=== PATIENT | male | born 1985 | race Caucasian/White ===

== ENCOUNTER 2016-12-16 17:15 | Emergency (ER) ==
[2016-12-16 17:20] VITALS: BP 137/84; TEMP 98.3; BMI 23.6
--- NOTE | 2016-12-16 17:28 | ED.PDOC ---
General ED Provider: Dr. MEGGAN MANE JR Chief Complaint: Hand Pain/Injury Stated Complaint: right hand injury. Punched wall. [ End ]last night Time Seen by Physician: 17:26 Mode of Arrival: Walk-In Information Source: Patient Exam Limitations: No limitations [facility] and Triage Documentation Reviewed and Agree: No Review of Systems - Review Of Systems Constitutional: Reports: No symptoms Eyes: Reports: No symptoms Ears, Nose, Mouth, Throat: Reports: No symptoms Respiratory: Reports: No symptoms Cardiac: Reports: No symptoms, Edema (hand) GI: Reports: No symptoms : Reports: No symptoms Musculoskeletal: Reports: Joint pain (righthand), Other Skin: Reports: Bruising Neurological: Reports: No symptoms Endocrine: Reports: No symptoms Hematologic/Lymphatic: Reports: No symptoms All Other Systems: Other Past Medical History - Past Medical History Previously Healthy: Yes Endocrine: Reports: None Cardiovascular: Reports: None Respiratory: Reports: None Hematological: Reports: None Gastrointestinal: Reports: None Genitourinary: Reports: None Neuro/Psych: Reports: None Musculoskeletal: Reports: None Cancer: Reports: None - Surgical History General Surgical History: Reports: Orthopedic (fx right hand x2), Hernia Repair (INGUINAL HERNIA REPAIR A CHILD ) - Family History Family History: Reports: Unknown - Social History Smoking Status: Current every day smoker, Heavy tobacco smoker Hx Substance Use: No Alcohol Screening: Occasionally - Immunizations Tetanus Shot up to Date: Yes Physical Exam - Physical Exam Appearance: Well-appearing Pain Distress: Moderate Neck: Supple Respiratory: Airway patent Musculoskeletal: No calf tenderness (tender right wrist and pproximal lateral hand) Neurological: Sensation intact, Motor intact, Reflexes intact, Cranial nerves intact, Alert, Oriented Psychiatric: Affect appropriate, Mood appropriate Critical Care Note - Critical Care Note Total Time (mins): 0 Course - Course Orders, Labs, Meds: Orders Category Date Time Status Hydrocodone Bit/Acetaminophen [[place] 10-325] MEDS 12/16/16 17:29 Discontinued 1 tab PO ONCE STA HAND, RIGHT 3 VIEWS Stat RADS 12/16/16 17:26 Completed Medications Discontinued Medications Generic Name Dose Route Start Last Admin Trade Name Freq PRN Reason Stop Dose Admin Acetaminophen/Hydrocodone Bitart 1 tab 12/16/16 17:29 12/16/16 17:36 [place] 10-325 PO 12/16/16 17:30 1 tab ONCE STA Administration Vital Signs: Temp Pulse Resp BP Pulse Ox 12/16/16 17:17 98.3 F 91 H 20 137/84 95 Departure - Departure Time of Disposition: 18:16 Disposition: HOME SELF-CARE Discharge Problem: Fracture, metacarpal Instructions: Hand Fracture (ED) Condition: Good Pt referred to PMD for follow-up: Yes Additional Instructions: ice 20 minutes three times a day follow up PMD for orthopedic referral [place] for pain no refills Prescriptions: Hydrocodone Bit/Acetaminophen [[place] 5-325] 1 - 2 tab PO Q6HR PRN #12 tablet PRN Reason: pain Allergies/Adverse Reactions: Allergies Penicillins Adverse Reaction (Verified 12/16/16 17:21) Home Medications: Ambulatory Orders Hydrocodone Bit/Acetaminophen [[place] 5-325] 1 - 2 tab PO Q6HR PRN #12 tablet
[2016-12-16] MEDS ORDERED: NORCO 10-325 PO STA (17:29)
--- NOTE | 2016-12-16 17:48 | DI ---
EXAM: Views of the right hand HISTORY: Trauma TECHNIQUE: AP lateral, oblique views of the right hand were obtained. FINDINGS: There is a transverse lucency seen through the base of the the fifth metacarpal seen best on the lateral view. The findings are not well seen on the AP and oblique radiographs. There is d eformity of the distal fifth metacarpal and this can be due to old fracture. IMPRESSION: There does appear to be a transverse lucency seen through the base of the fifth metacar pal and this equivocal for a minimally displaced fracture. The findings are seen only on the latera l radiograph. CT scan of the right hand can be obtained for further evaluation if clinically indicat ed.
== END 2016-12-16 18:55 | disposition home or self-care (01) ==
LOC: ED 17:15
DX: S62.316A Displaced fracture of base of fifth metacarpal bone, right hand, initial encounter for closed fracture (principal); W22.8XXA Striking against or struck by other objects, initial encounter; F17.210 Nicotine dependence, cigarettes, uncomplicated
CPT/HCPCS: 99282

== ENCOUNTER 2017-04-07 03:25 | Outpatient (CLI) | END 2017-04-07 03:26 | disposition short-term general hospital (02) | LOC: AMBL 03:25 | PROVIDERS: ATTEND Internal Medicine Geriatric Medicine | DX: R44.0 Auditory hallucinations (principal) ==

== ENCOUNTER 2017-11-21 12:31 | Emergency (ER) ==
[2017-11-21 12:36] VITALS: BP 162/78; TEMP 98.5; BMI 26.9
--- NOTE | 2017-11-21 15:16 | ED.PDOC ---
General ED Provider: Dr. JORGE BAILEY Chief Complaint: Abscess Stated Complaint: PAINFUL RT HAND. Has swelling in mid finger and extending into metatarsal region. May have been stuck by shrimp was cleaning last Sat night. Time Seen by Physician: 15:00 Mode of Arrival: Walk-In Information Source: Patient Exam Limitations: No limitations Primary Care [facility] Nursing and Triage Documentation Reviewed and Agree: Yes Reviewed sepsis parameters & appropriate labs ordered?: Yes System Inflammatory Response Syndrome: Not Applicable Sepsis Protocol: For patient's 13 years and over: Temp is 96.8 and below OR 101 and greater Pulse >90 BPM Resp >20/minute Acutely Altered Mental Status Are patient's symptoms suggestive of a new infection, such as: -Pneumonia -Skin, Soft Tissue -Endocarditis -UTI -Bone, Joint Infection -Implantable Device -Acute Abdominal Infection -Wound Infection -Meningitis -Blood Stream Catheter Infection -Unknown System Inflammatory Response Syndrome: Not Applicable Skin Complaint Exam - Skin/Soft Tissue Complaint/Exam Symptoms Are: Still present Timing: Constant Initial Severity: Severe Current Severity: Moderate Character: Reports: Redness, Swelling, Painful Aggravating: Reports: Touch Associated Signs and Symptoms: Reports: Drainage, Tenderness, Red streaks Related History: Denies: Similar episode, Recent Med change, Recent inpatient Related Surgical History: Denies: None Skin Findings: Present: Erythema, Induration, Fluctuant mass Differential Diagnoses: Abscess, Cellulitis Review of Systems - Review Of Systems Constitutional: Reports: No symptoms Eyes: Reports: No symptoms Ears, Nose, Mouth, Throat: Reports: No symptoms Respiratory: Reports: No symptoms Cardiac: Reports: No symptoms GI: Reports: No symptoms : Reports: No symptoms Musculoskeletal: Reports: No symptoms Skin: Reports: No symptoms, Rash, Other (erythrema rt middle finger) Neurological: Reports: No symptoms Endocrine: Reports: No symptoms Hematologic/Lymphatic: Reports: No symptoms All Other Systems: Reviewed and Negative Past Medical History - Past Medical History Previously Healthy: Yes Endocrine: Reports: None Cardiovascular: Reports: None Respiratory: Reports: None Hematological: Reports: None Gastrointestinal: Reports: None Genitourinary: Reports: None Neuro/Psych: Reports: None Musculoskeletal: Reports: None Cancer: Reports: None - Surgical History General Surgical History: Reports: Orthopedic (fx right hand x2), Hernia Repair (INGUINAL HERNIA REPAIR A CHILD ) - Family History Family History: Reports: Unknown - Social History Smoking Status: Current every day smoker, Heavy tobacco smoker Hx Substance Use: No Alcohol Screening: Occasionally - Immunizations Tetanus Shot up to Date: Yes Physical Exam - Physical Exam Appearance: Well-appearing Ill-appearing: None Pain Distress: Moderate Eyes: GUCCI, EOMI, Conjunctiva clear ENT: Ears normal, Nose normal, Oropharynx normal Neck: Supple Respiratory: Airway patent, Breath sounds clear, Breath sounds equal Cardiovascular: RRR, Pulses normal, No rub, No murmur GI/: Soft, Nontender Musculoskeletal: Normal strength, ROM intact, No edema Skin: Warm (erythrema dorsum Rt hand extending wrist, Rt Middle phalynx) Neurological: Sensation intact Re-Evaluation - Re-Evaluation Time of Re-Evaluation: 17:10 Status: Improved Vital Signs Stable: Yes Appearance: NAD Lungs: Clear Skin: Warm and Dry Neuro: Alert and Oriented X3 CV: RRR Additional Comments: Improved Critical Care Note - Critical Care Note Total Time (mins): 0 Course - Course Orders, Labs, Meds: Orders Category Date Time Status IV ACCESS ONCE CARE 11/21/17 16:02 Active Clindamycin Phosphate Inj [Cleocin] MEDS 11/21/17 16:25 Discontinued 300 mg .ROUTE .STK-MED ONE Clindamycin Phosphate Inj [Cleocin] 300 mg MEDS 11/21/17 16:07 Discontinued 0.9 % Sodium Chloride [Sodium Chloride] 100 ml IV ONCE Hydromorphone HCl [Dilaudid 1 mg/ml Syringe] MEDS 11/21/17 16:17 Discontinued 1 mg IVP ONCE STA Medications Discontinued Medications Generic Name Dose Route Start Last Admin Trade Name Freq PRN Reason Stop Dose Admin Hydromorphone HCl 1 mg 11/21/17 16:17 11/21/17 16:35 Dilaudid 1 Mg/Ml Syringe IVP 11/21/17 16:18 1 mg ONCE STA Administration Clindamycin Phosphate 300 mg/ 102 mls @ 208 mls/hr 11/21/17 16:07 11/21/17 16 :38 Sodium Chloride IV 11/21/17 16:36 208 mls/hr ONCE ONE Administration Vital Signs: Temp Pulse Resp BP Pulse Ox 11/21/17 12:32 98.5 F 76 16 162/78 H 97 Departure - Departure Time of Disposition: 17:40 Disposition: HOME SELF-CARE Discharge Problem: Abscess of right middle finger, Cellulitis and abscess of hand Instructions: Cellulitis (ED), Abscess (ED) Condition: Good Pt referred to PMD for follow-up: Yes (1week) IPMP verified?: No Additional Instructions: Follow up with your primary care provider as soon as possible Take medication as prescribed Keep area clean and dry Prescriptions: Hydrocodone Bit/Acetaminophen [[place] 5-325] 1 each PO Q4HR PRN #15 tablet PRN Reason: pain rt hand Chlorhexidine Gluconate [Hibiclens 4% [place]] 1 applic TP TID #8 oz Clindamycin HCl 300 mg PO QID #30 capsule Allergies/Adverse Reactions: Allergies Penicillins Adverse Reaction (Verified 11/21/17 12:37) Home Medications: Ambulatory Orders Chlorhexidine Gluconate [Hibiclens 4% [place]] 1 applic TP TID #8 oz 11/21/17 Clindamycin HCl 300 mg PO QID #30 capsule 11/21/17 Hydrocodone Bit/Acetaminophen [[place] 5-325] 1 each PO Q4HR PRN #15 tablet Disposition Discussed With: Patient, Family
[2017-11-21] MEDS ORDERED: CLEOCIN 300 MG in SODIUM CHLORIDE 100 ML IV ONE (16:07)
[2017-11-21] MEDS ORDERED: DILAUDID 1 MG/ML SYRINGE IVP STA (16:17)
[2017-11-21] MEDS ORDERED: CLEOCIN ONE (16:25)
== END 2017-11-21 18:10 | disposition home or self-care (01) ==
LOC: ED 12:31
DX: L02.511 Cutaneous abscess of right hand (principal); L03.113 Cellulitis of right upper limb; F17.210 Nicotine dependence, cigarettes, uncomplicated
CPT/HCPCS: 87070; 87186; 96365; 96375; 99283

== ENCOUNTER 2018-01-07 20:39 | Emergency (ER) ==
[2018-01-07 20:59] VITALS: BP 130/77; TEMP 101; BMI 24.7
[2018-01-07] MEDS ORDERED: VANCOMYCIN 1 GM in SODIUM CHLORIDE 250 ML IV STA (21:26)
[2018-01-07] MEDS ORDERED: ROCEPHIN 1 GM in SODIUM CHLORIDE 50 ML IV STA (21:26)
[2018-01-07] MEDS ORDERED: ROCEPHIN ONE (21:31)
--- NOTE | 2018-01-07 21:51 | CT ---
EXAM: CT of the maxillofacial region without contrast History: Abscess on chin. Technique: Multiplanar CT images through the maxillofacial region were obtained without the administ ration of IV contrast Findings: No acute fracture or dislocation. Mild mucosal thickening of the bilateral maxillary sinu ses and ethmoid air cells. No air-fluid levels seen within the sinuses. Mastoid air cells are clear . Nasal septum is bowed to the left. Bilateral ostiomeatal units are not occluded. Mildly enlarged lymph nodes seen within the bilateral neck measuring up to 1.3 cm on the left and 1.1 cm on the righ t and are probably reactive. Extensive subcutaneous edema involving the chin which does extend below the mandible to the anterior aspect of the neck. Evaluation for abscess is limited due to lack of co ntrast administration. Impression: 1. Cellulitis of the chin extending to the anterior neck. Evaluation for abscess is limited due to the lack of contrast administration. Consider follow-up with IV contrast enhanced study. 2. Mildly enlarged bilateral neck lymph nodes are probably reactive. 3. Mild sinus disease
[2018-01-07] MEDS ORDERED: DEMEROL 25 MG/ML VIAL IM STA (21:56)
[2018-01-07] MEDS ORDERED: ZOFRAN 4 MG/2 ML IM STA (21:56)
[2018-01-07] MEDS ORDERED: ZOFRAN 4 MG/2 ML IVP STA (22:05)
[2018-01-07] MEDS ORDERED: DEMEROL 25 MG/ML VIAL IVP STA (22:06)
--- NOTE | 2018-01-07 23:04 | ED.PDOC ---
General ED Provider: Dr. MARCOS CHAU Chief Complaint: Cellulitis Stated Complaint: Patient had Pimple on the chin, which he popped 2 days ago, the area is swollen and pain, started draining pus, Time Seen by Physician: 20:45 Mode of Arrival: Walk-In Information Source: Patient Primary Care Provider: MARCOS [facility] Nursing and Triage Documentation Reviewed and Agree: Yes Reviewed sepsis parameters & appropriate labs ordered?: Yes System Inflammatory Response Syndrome: Temp 101F or Greater, Pulse >90 BPM Sepsis Protocol: For patient's 13 years and over: Temp is 96.8 and below OR 101 and greater Pulse >90 BPM Resp >20/minute Acutely Altered Mental Status Are patient's symptoms suggestive of a new infection, such as: -Pneumonia -Skin, Soft Tissue -Endocarditis -UTI -Bone, Joint Infection -Implantable Device -Acute Abdominal Infection -Wound Infection -Meningitis -Blood Stream Catheter Infection -Unknown Skin Complaint Exam - Skin/Soft Tissue Complaint/Exam Symptoms Are: Still present Timing: Constant Initial Severity: Moderate Current Severity: Moderate Character: Reports: Redness, Swelling, Raised, Painful Aggravating: Reports: Touch Alleviating: Reports: None Associated Signs and Symptoms: Reports: Fever, Drainage, Tenderness, Red streaks. Denies: Chills, Itching, Bruising, Joint swelling Related Surgical History: Reports: None Recent Exposure to Others w/Similar Symptoms: No Skin Findings: Present: Erythema, Induration. Absent: Fluctuant mass Differential Diagnoses: Cellulitis Review of Systems - Review Of Systems Constitutional: Reports: No symptoms Eyes: Reports: No symptoms Ears, Nose, Mouth, Throat: Reports: No symptoms Respiratory: Reports: No symptoms Cardiac: Reports: No symptoms GI: Reports: No symptoms : Reports: No symptoms Musculoskeletal: Reports: No symptoms Skin: Reports: No symptoms Neurological: Reports: No symptoms Endocrine: Reports: No symptoms Hematologic/Lymphatic: Reports: No symptoms All Other Systems: Reviewed and Negative Past Medical History - Past Medical History Previously Healthy: Yes Endocrine: Reports: None Cardiovascular: Reports: None Respiratory: Reports: None Hematological: Reports: None Gastrointestinal: Reports: None Genitourinary: Reports: None Neuro/Psych: Reports: Anxiety, Depression Musculoskeletal: Reports: None Cancer: Reports: None - Surgical History General Surgical History: Reports: Orthopedic (fx right hand x2), Hernia Repair (INGUINAL HERNIA REPAIR A CHILD ) - Family History Family History: Reports: Unknown - Social History Smoking Status: Current every day smoker, Heavy tobacco smoker Hx Substance Use: Yes (ALCOHOL) Alcohol Screening: Occasionally - Immunizations Tetanus Shot up to Date: Yes Physical Exam - Physical Exam Appearance: Well-appearing, No pain distress, Well-nourished Eyes: GUCCI, EOMI, Conjunctiva clear ENT: Ears normal, Nose normal, Oropharynx normal Respiratory: Airway patent, Breath sounds clear, Breath sounds equal, Respirations nonlabored Cardiovascular: RRR, Pulses normal, No rub, No murmur GI/: Soft, Nontender, No masses, Bowel sounds normal, No Organomegaly Musculoskeletal: Normal strength, ROM intact, No edema, No calf tenderness Skin: Warm, Dry (chin is swollen, tender, open wound, ), Normal color Neurological: Sensation intact, Motor intact, Reflexes intact, Cranial nerves intact, Alert, Oriented Psychiatric: Affect appropriate, Mood appropriate Interpretation - Radiology Interpretation Radiology Interpretation By: Radiologist Radiology Results: Positive Exam Interpreted: CT Scan Critical Care Note - Critical Care Note Total Time (mins): 30 Course - Course Hematology/Chemistry: 01/07/18 21:45 01/07/18 21:45 Orders, Labs, Meds: Lab Review 01/07/18 01/07/18 01/07/18 21:45 21:45 21:45 WBC 15.57 H RBC 5.14 Hgb 16.1 Hct 47.6 MCV 92.6 MCH 31.3 H MCHC 33.8 RDW Coeff of Juanito 13.4 Plt Count 266 Immature Gran % (Auto) 0.6 Neut % (Auto) 70.1 Lymph % (Auto) 15.9 [place] % (Auto) 11.0 H Eos % (Auto) 1.8 Baso % (Auto) 0.6 Immature Gran # (Auto) 0.1 Neut # (Auto) 10.9 H Lymph # (Auto) 2.5 [place] # (Auto) 1.7 Eos # (Auto) 0.3 Baso # (Auto) 0.1 Sodium 138 Potassium 3.7 Chloride 101 Carbon Dioxide 24 Anion Gap 16.7 BUN 3 L Creatinine 0.92 Estimated GFR (MDRD) 96.00 BUN/Creatinine Ratio 3.26 Glucose 108 H Lactic Acid 10.0 Calcium 9.9 Total Bilirubin 0.8 AST 86 H ALT 128 H Alkaline Phosphatase 178 H Total Protein 8.3 H Albumin 3.8 Globulin 4.5 Albumin/Globulin Ratio 0.84 Procalcitonin Vancomycin Trough < 0.42 L 01/07/18 21:45 WBC RBC Hgb Hct MCV MCH MCHC RDW Coeff of Juanito Plt Count Immature Gran % (Auto) Neut % (Auto) Lymph % (Auto) [place] % (Auto) Eos % (Auto) Baso % (Auto) Immature Gran # (Auto) Neut # (Auto) Lymph # (Auto) [place] # (Auto) Eos # (Auto) Baso # (Auto) Sodium Potassium Chloride Carbon Dioxide Anion Gap BUN Creatinine Estimated GFR (MDRD) BUN/Creatinine Ratio Glucose Lactic Acid Calcium Total Bilirubin AST ALT Alkaline Phosphatase Total Protein Albumin Globulin Albumin/Globulin Ratio Procalcitonin 0.10 Vancomycin Trough Orders Category Date Time Status ED IV/MEDIPORT/POWERPORT .ONCE EMERGENCY 01/07/18 21:26 Active BLOOD CULTURE (ED ONLY) Stat LAB 01/07/18 21:45 Received CBC W/ AUTO DIFF Stat LAB 01/07/18 21:45 Completed COMPREHENSIVE METABOLIC PANEL Stat LAB 01/07/18 21:45 Completed LACTIC ACID Stat LAB 01/07/18 21:45 Completed PROCALCITONIN Stat LAB 01/07/18 21:45 Completed VANCOMYCIN,TROUGH Stat LAB 01/07/18 21:45 Completed WOUND CULTURE Stat LAB 01/07/18 22:30 Received 0.9 % Sodium Chloride [Saline Flush] MEDS 01/07/18 21:26 Ordered 1 syr IVF PRN PRN Ceftriaxone Sodium [Rocephin] MEDS 01/07/18 21:31 Discontinued 1 gm .ROUTE .STK-MED ONE Ceftriaxone Sodium [Rocephin] 1 gm MEDS 01/07/18 21:26 Discontinued 0.9 % Sodium Chloride [Sodium Chloride] 50 ml IV ONCE Meperidine HCl/Pf [Demerol 25 mg/ml Vial] MEDS 01/07/18 22:06 Discontinued 25 mg IVP ONCE STA Ondansetron HCl/Pf [Zofran 4 mg/2 ml] MEDS 01/07/18 22:05 Discontinued 4 mg IVP ONCE STA Vancomycin HCl [Vancomycin] 1 gm MEDS 01/07/18 21:26 Discontinued 0.9 % Sodium Chloride [Sodium Chloride] [address] MAXILLOFACIAL W/O CONTRAST Stat RADS 01/07/18 21:26 Completed Medications Generic Name Dose Route Start Last Admin Trade Name Freq PRN Reason Stop Dose Admin Sodium Chloride 1 syr 01/07/18 21:26 01/07/18 21:51 Saline Flush IVF 1 syr PRN PRN Administration To flush IV Discontinued Medications Generic Name Dose Route Start Last Admin Trade Name Manuel PRN Reason Stop Dose Admin Ceftriaxone Sodium 1 gm/ 50 mls @ 75 mls/hr 01/07/18 21:26 01/07/18 21:51 Sodium Chloride IV 01/07/18 22:05 75 mls/hr ONCE STA Administration Vancomycin HCl 1 gm/ Sodium 250 mls @ 250 mls/hr 01/07/18 21:26 Chloride IV 01/07/18 22:25 ONCE STA Meperidine HCl 25 mg 01/07/18 22:06 01/07/18 22:07 Demerol 25 Mg/Ml Vial IVP 01/07/18 22:07 25 mg ONCE STA Administration Ondansetron HCl 4 mg 01/07/18 22:05 01/07/18 22:07 Zofran 4 Mg/2 Ml IVP 01/07/18 22:06 4 mg ONCE STA Administration Vital Signs: Temp Pulse Resp BP Pulse Ox 01/07/18 20:39 101 F H 110 H 20 130/77 95 Departure - Departure Time of Disposition: 23:08 Disposition: HOME SELF-CARE Discharge Problem: Facial cellulitis Instructions: Cellulitis (ED) Condition: Stable Pt referred to PMD for follow-up: Yes IPMP verified?: No Additional Instructions: Take medication with food. Increase Hydration Probiotics RHC in 2 days Prescriptions: Sulfamethoxazole/Trimethoprim [Bactrim Ds 800/160 mg] 1 tab PO Q12HR #20 tablet Clindamycin HCl 300 mg PO TID #15 capsule Allergies/Adverse Reactions: Allergies Penicillins Adverse Reaction (Verified 01/07/18 20:48) Hives Home Medications: Ambulatory Orders Clindamycin HCl 300 mg PO TID #15 capsule 01/07/18 Sulfamethoxazole/Trimethoprim [Bactrim Ds 800/160 mg] 1 tab PO Q12HR #20 tablet 01/07/18 Disposition Discussed With: Patient
== END 2018-01-08 00:29 | disposition home or self-care (01) ==
LOC: ED 20:39
DX: L03.211 Cellulitis of face (principal); F17.210 Nicotine dependence, cigarettes, uncomplicated
CPT/HCPCS: 36415; 80053; 80202; 83605; 84145; 85025; 87040; 87070; 87186; 96365; 96367; 96375; 99283

== ENCOUNTER 2018-08-12 18:37 | Emergency (ER) | payer MEDICAID, OTHER ==
[2018-08-12 18:45] VITALS: BMI 24.6
--- NOTE | 2018-08-13 00:32 | ED.PDOC ---
General Stated Complaint: brought to the er by police---threatened suicide Time Seen by Physician: 19:00 Mode of Arrival: Police Information Source: Patient, Police Exam Limitations: No limitations Nursing and Triage Documentation Reviewed and Agree: Yes Does patient meet sepsis criteria?: No System Inflammatory Response Syndrome: Not Applicable <JORGE SCHMITT - Last Filed: 08/13/18 00:30> <JOVANI BARRERA - Last Filed: 08/13/18 16:23> ED Provider: Dr. JOVANI BARRERA Chief Complaint: Behavioral Complaint Primary Care Provider: KELLY HINTON Sepsis Protocol: For patient's 13 years and over: Temp is 96.8 and below OR 101 and greater Pulse >90 BPM Resp >20/minute Acutely Altered Mental Status Are patient's symptoms suggestive of a new infection, such as: -Pneumonia -Skin, Soft Tissue -Endocarditis -UTI -Bone, Joint Infection -Implantable Device -Acute Abdominal Infection -Wound Infection -Meningitis -Blood Stream Catheter Infection -Unknown Psychological Complaint Exam - Psychiatric Complaint/Exam Patient Complains Of: Present: Suicidal thoughts Onset/Duration: today Symptoms Are: Still present Timing: Constant Initial Severity: Mild Current Severity: Mild Character: Present: Depressed, Anxious Aggravating: Reports: Drug use Associated Signs And Symptoms: Reports: Sleep disturbance Completed Suicide Risk Factors: Male, Patient Accompanied By: Police Patient In Custody Of Police: No Social Withdrawal Present: No Social Isolation Present: No Prior Suicide Attempt: No Injury From Prior Suicide Attempt: No Related Surgical History: Reports: None Patient Uncooperative For Exam: No Mood: Present: Anxious Appearance: Present: Unkempt Thought Process: Present: Illogical Insight: Present: Poor Memory: Intact Judgement: Normal Danger To Others: No Patient Medically Stable For: Psych evaluation, Referral, Transfer Differential Diagnoses: Anxiety, Depression, Other <JORGE SCHMITT - Last Filed: 08/13/18 00:30> Review of Systems - Review Of Systems Constitutional: Reports: No symptoms Eyes: Reports: No symptoms Ears, Nose, Mouth, Throat: Reports: No symptoms Respiratory: Reports: No symptoms Cardiac: Reports: No symptoms GI: Reports: No symptoms : Reports: No symptoms Musculoskeletal: Reports: No symptoms Skin: Reports: No symptoms Neurological: Reports: No symptoms Endocrine: Reports: No symptoms Hematologic/Lymphatic: Reports: No symptoms All Other Systems: Reviewed and Negative <JORGE SCHMITT - Last Filed: 08/13/18 00:30> Past Medical History - Past Medical History Previously Healthy: Yes Endocrine: Reports: None Cardiovascular: Reports: None Respiratory: Reports: None Hematological: Reports: None Gastrointestinal: Reports: None Genitourinary: Reports: None Neuro/Psych: Reports: Anxiety, Depression Musculoskeletal: Reports: None Cancer: Reports: None - Surgical History General Surgical History: Reports: Orthopedic (fx right hand x2), Hernia Repair (INGUINAL HERNIA REPAIR A CHILD ) - Family History Family History: Reports: Unknown - Social History Smoking Status: Current every day smoker, Light tobacco smoker Hx Substance Use: Yes (ALCOHOL) Alcohol Screening: Occasionally <LOU-ER,JORGE - Last Filed: 08/13/18 00:30> Physical Exam - Physical Exam Appearance: Well-appearing, No pain distress, Well-nourished Eyes: GUCCI, Conjunctiva pale ENT: Ears normal, Nose normal, Oropharynx normal Neck: Supple Respiratory: Airway patent, Breath sounds clear, Breath sounds equal, Respirations nonlabored Cardiovascular: RRR, Pulses normal, No rub, No murmur GI/: Soft, Nontender, No masses, Bowel sounds normal, No Organomegaly Musculoskeletal: Normal strength, ROM intact, No edema, No calf tenderness Skin: Warm Neurological: Sensation intact Psychiatric: Affect appropriate, Mood appropriate, Anxious <OSKARJORGE - Last Filed: 08/13/18 00:30> Critical Care Note - Critical Care Note Total Time (mins): 0 <OSKARJORGE - Last Filed: 08/13/18 00:30> Course - Course Hematology/Chemistry: 08/12/18 19:06 08/12/18 19:06 <OSKARJORGE - Last Filed: 08/13/18 00:30> - Course Hematology/Chemistry: 08/13/18 15:10 08/13/18 15:10 <JOVANI BARRERA - Last Filed: 08/13/18 16:23> - Course Orders, Labs, Meds: Lab Review 08/12/18 08/12/18 08/12/18 13:32 19:06 19:06 WBC 15.71 H RBC 5.16 Hgb 15.7 Hct 46.3 MCV 89.7 MCH 30.4 MCHC 33.9 RDW Coeff of Juanito 14.0 Plt Count 382 Immature Gran % (Auto) 0.4 Neut % (Auto) 74.4 Lymph % (Auto) 16.0 Coffey % (Auto) 8.1 Eos % (Auto) 0.7 Baso % (Auto) 0.4 Immature Gran # (Auto) 0.1 Neut # (Auto) 11.7 H Lymph # (Auto) 2.5 Coffey # (Auto) 1.3 Eos # (Auto) 0.1 Baso # (Auto) 0.1 Sodium 137.3 Potassium 3.78 Chloride 100.2 Carbon Dioxide 23.6 Anion Gap 17.28 BUN 12.4 Creatinine 0.88 Estimated GFR (MDRD) 100.00 BUN/Creatinine Ratio 14.09 Glucose 97.2 Calcium 10.31 H Total Bilirubin 1.12 AST 37.3 ALT 49.4 Alkaline Phosphatase 129.0 H Total Protein 9.71 H Albumin 5.19 H Globulin 4.52 Albumin/Globulin Ratio 1.14 TSH 1.400 Urine Color Urine Clarity Urine pH Ur Specific [place] Urine Protein Urine Glucose (UA) Urine Ketones Urine Blood Urine Nitrite Urine Bilirubin Urine Urobilinogen Ur Leukocyte Esterase Urine Microscopic RBC Urine Microscopic WBC Ur Squamous Epith Cells Urine Bacteria Hyaline Casts Urine Mucus Salicylate Level mg/dL < 1.00 Urine Opiates Screen Ur Oxycodone Screen Urine Methadone Screen Ur Propoxyphene Screen Acetaminophen < 10.0 L Ur Barbiturates Screen U Tricyclic Antidepress Ur Phencyclidine Scrn Ur Amphetamine Screen U Methamphetamines Scrn U Benzodiazepines Scrn Urine Cocaine Screen U Cannabinoids Screen Plasma/Serum Alcohol < 10.0 08/12/18 08/12/18 08/13/18 22:24 22:24 14:30 WBC RBC Hgb Hct MCV MCH MCHC RDW Coeff of Juanito Plt Count Immature Gran % (Auto) Neut % (Auto) Lymph % (Auto) [place]y % (Auto) Eos % (Auto) Baso % (Auto) Immature Gran # (Auto) Neut # (Auto) Lymph # (Auto) Coffey # (Auto) Eos # (Auto) Baso # (Auto) Sodium Potassium Chloride Carbon Dioxide Anion Gap BUN Creatinine Estimated GFR (MDRD) BUN/Creatinine Ratio Glucose Calcium Total Bilirubin AST ALT Alkaline Phosphatase Total Protein Albumin Globulin Albumin/Globulin Ratio TSH Urine Color Yellow Light Urine Clarity Slightly Clear Urine pH 6.0 5.5 Ur Specific [place] 1.020 <=1.005 Urine Protein Trace Negative Urine Glucose (UA) Negative Negative Urine Ketones 3+ 1+ Urine Blood Negative Trace-intact Urine Nitrite Negative Negative Urine Bilirubin 1+ Negative Urine Urobilinogen 0.2 0.2 Ur Leukocyte Esterase 2+ Trace Urine Microscopic RBC 0-2 Urine Microscopic WBC 30-50 Ur Squamous Epith Cells Not present Not present Urine Bacteria Trace Hyaline Casts 0-2 Urine Mucus Trace Salicylate Level mg/dL Urine Opiates Screen Negative Ur Oxycodone Screen Negative Urine Methadone Screen Negative Ur Propoxyphene Screen Negative Acetaminophen Ur Barbiturates Screen Negative U Tricyclic Antidepress Negative Ur Phencyclidine Scrn Negative Ur Amphetamine Screen Positive U Methamphetamines Scrn Positive U Benzodiazepines Scrn Negative Urine Cocaine Screen Negative U Cannabinoids Screen Positive Plasma/Serum Alcohol 08/13/18 08/13/18 15:10 15:10 WBC 13.21 H RBC 4.25 L Hgb 13.1 L Hct 38.2 L D MCV 89.9 MCH 30.8 MCHC 34.3 RDW Coeff of Juanito 13.8 Plt Count 253 D Immature Gran % (Auto) 0.3 Neut % (Auto) 75.9 Lymph % (Auto) 14.6 [place]offey % (Auto) 7.9 Eos % (Auto) 1.0 Baso % (Auto) 0.3 Immature Gran # (Auto) 0.0 Neut # (Auto) 10.0 H Lymph # (Auto) 1.9 Coffey # (Auto) 1.1 Eos # (Auto) 0.1 Baso # (Auto) 0.0 Sodium 134.2 L Potassium 4.21 Chloride 102.3 Carbon Dioxide 24.3 Anion Gap 11.81 BUN 10.1 Creatinine 0.73 Estimated GFR (MDRD) 125.00 BUN/Creatinine Ratio 13.83 Glucose 89.0 Calcium 8.72 Total Bilirubin 1.14 AST 38.9 ALT 33.5 Alkaline Phosphatase 97.5 D Total Protein 7.44 Albumin 4.17 Globulin 3.27 Albumin/Globulin Ratio 1.27 TSH Urine Color Urine Clarity Urine pH Ur Specific [place] Urine Protein Urine Glucose (UA) Urine Ketones Urine Blood Urine Nitrite Urine Bilirubin Urine Urobilinogen Ur Leukocyte Esterase Urine Microscopic RBC Urine Microscopic WBC Ur Squamous Epith Cells Urine Bacteria Hyaline Casts Urine Mucus Salicylate Level mg/dL Urine Opiates Screen Ur Oxycodone Screen Urine Methadone Screen Ur Propoxyphene Screen Acetaminophen Ur Barbiturates Screen U Tricyclic Antidepress Ur Phencyclidine Scrn Ur Amphetamine Screen U Methamphetamines Scrn U Benzodiazepines Scrn Urine Cocaine Screen U Cannabinoids Screen Plasma/Serum Alcohol Orders Category Date Time Status TRANSFER TO OUTSIDE FACILITY .TO OTHER OUTSIDE FACILITY CARE 08/13/18 00:34 Active (SEE ORDER DETAILS) WRITE TRANSFER/SBAR NOTE ONCE CARE 08/13/18 00:35 Active DISCHARGE ASSESSMENT ONCE DISCHARGE 08/13/18 00:35 Active WRITE DISCHARGE NOTE ONCE DISCHARGE 08/13/18 00:35 Active Mental Health Consult [ED MENTAL HEALTH CONSULT] .ONCE EMERGENCY 08/12/18 18: 49 Active BLOOD ALCOHOL Stat LAB 08/12/18 19:06 Completed CBC W/ AUTO DIFF Stat LAB 08/12/18 19:06 Completed CBC W/ AUTO DIFF Stat LAB 08/13/18 15:10 Completed CMP [COMPREHENSIVE METABOLIC PANEL] Stat LAB 08/13/18 15:10 Completed COMPREHENSIVE METABOLIC PANEL Stat LAB 08/12/18 19:06 Completed SALICYLATE Stat LAB 08/12/18 19:06 Completed SERUM PROTEIN ELECTROPHORESIS Stat LAB 08/12/18 19:05 Received TSH [THYROID STIMULATING HORMONE] Stat LAB 08/13/18 13:28 Completed TYLENOL LEVEL [ACETAMINOPHEN] Stat LAB 08/12/18 19:06 Completed UA [URINALYSIS C & S IF INDICATED] Stat LAB 08/13/18 14:30 Completed URINALYSIS C & S IF INDICATED Stat LAB 08/12/18 22:24 Completed URINE CULTURE Stat LAB 08/12/18 22:40 Results URINE DRUG SCREEN (RAPID FOR ED) [DRUG SCREEN, URINE, LAB 08/12/18 22:24 Completed RAPID] Stat Ibuprofen [Motrin] MEDS 08/13/18 02:26 Discontinued 600 mg PO ONCE STA Lorazepam Inj [Ativan] MEDS 08/13/18 12:28 Discontinued 1 mg IM ONCE STA Sodium Chloride 0.9% [Sodium Chloride] 1,000 ml MEDS 08/13/18 13:19 Discontinued IV BOLUS Sodium Chloride 0.9% [Sodium Chloride] 1,000 ml MEDS 08/13/18 14:15 Discontinued IV BOLUS Medications Discontinued Medications Generic Name Dose Route Start Last Admin Trade Name Freq PRN Reason Stop Dose Admin Sodium Chloride 1,000 mls @ 1,000 mls/hr 08/13/18 13:19 08/13/18 13:23 Sodium Chloride IV 08/13/18 14:18 1,000 mls/hr BOLUS STA Administration Sodium Chloride 1,000 mls @ 1,000 mls/hr 08/13/18 14:15 08/13/18 14:24 Sodium Chloride IV 08/13/18 15:14 1,000 mls/hr BOLUS STA Administration Ibuprofen 600 mg 08/13/18 02:26 08/13/18 02:32 Motrin PO 08/13/18 02:27 600 mg ONCE STA Administration Lorazepam 1 mg 08/13/18 12:28 08/13/18 12:38 Ativan IM 08/13/18 12:29 1 mg ONCE STA Administration Vital Signs: Temp Pulse Resp BP Pulse Ox 08/13/18 16:00 97.8 F 81 20 128/75 96 08/13/18 11:30 97.9 F 84 20 114/81 97 08/13/18 06:40 97.1 F L 78 18 111/76 98 08/12/18 18:38 97.9 F 131 H 20 151/105 H 97 Departure - Departure Pt referred to PMD for follow-up: Yes IPMP verified?: No Transfer Form Completed: Yes Disposition Discussed With: Patient <JORGE SCHMITT - Last Filed: 08/13/18 00:30> - Departure Time of Disposition: 16:22 <JOVANI BARRERA - Last Filed: 08/13/18 16:23> - Departure Disposition: TSF SHORT-TRM HOSP Discharge Problem: Depression, Problem behavior, Suicide gesture Instructions: Depression (ED) Condition: Good Allergies/Adverse Reactions: Allergies Penicillins Adverse Reaction (Verified 08/12/18 18:47) Hives Home Medications: Ambulatory Orders Olanzapine [Zyprexa] 10 mg PO DAILY 08/12/18 Discharge Problem: Depression Qualifiers: Depression Type: major depressive disorder Major depression recurrence: single episode Active/Remission status: remission status unspecified Qualified Code(s) : F32.9 - Major depressive disorder, single episode, unspecified
[2018-08-13] MEDS ORDERED: MOTRIN PO STA (02:26)
[2018-08-13] MEDS ORDERED: ATIVAN IM STA (12:28)
[2018-08-13] MEDS ORDERED: SODIUM CHLORIDE 1,000 ML IV STA ×2 (13:19→14:15)
[2018-08-13 16:10] VITALS: BP 128/75; TEMP 97.8
== END 2018-08-13 17:40 | disposition short-term general hospital (02) ==
LOC: ED 18:37
DX: F32.9 Major depressive disorder, single episode, unspecified (principal); R45.851 Suicidal ideations; F91.9 Conduct disorder, unspecified
CPT/HCPCS: 36415; 80053; 80306; 80307; 81001; 84165; 84443; 85025; 87086; 96360; 96361; 96372; 99285

== ENCOUNTER 2018-08-13 17:49 | Outpatient (CLI) ==
[2018-08-12 18:45] VITALS: BMI 24.6
== END 2018-08-13 20:05 | disposition short-term general hospital (02) ==
LOC: AMBL 17:49
PROVIDERS: ATTEND Internal Medicine
DX: F99 Mental disorder, not otherwise specified (principal)

== ENCOUNTER 2018-12-17 12:16 | Emergency (ER) ==
[2018-12-17 12:20] VITALS: BP 112/82; TEMP 98.1; BMI 24.3
--- NOTE | 2018-12-17 12:20 | ED.PDOC ---
General ED Provider: Dr. JORGE DIAZ MD Chief Complaint: Psychiatric Complaint Stated Complaint: i feel anxious Time Seen by Physician: 12:22 Mode of Arrival: Police (brought in because of verbal altercation with mom, havent taken psych meds over 1 month) Information Source: Patient, Police Exam Limitations: No limitations Primary Care Provider: KELLY HINTON Nursing and Triage Documentation Reviewed and Agree: Yes Does patient meet sepsis criteria?: No If yes, has appropriate treatment been initiated?: Yes System Inflammatory Response Syndrome: Not Applicable Sepsis Protocol: For patient's 13 years and over: Temp is 96.8 and below OR 101 and greater Pulse >90 BPM Resp >20/minute Acutely Altered Mental Status Are patient's symptoms suggestive of a new infection, such as: -Pneumonia -Skin, Soft Tissue -Endocarditis -UTI -Bone, Joint Infection -Implantable Device -Acute Abdominal Infection -Wound Infection -Meningitis -Blood Stream Catheter Infection -Unknown Review of Systems - Review Of Systems Constitutional: Reports: Other (runny nose) Eyes: Reports: No symptoms Ears, Nose, Mouth, Throat: Reports: Nose discharge Respiratory: Reports: No symptoms Cardiac: Reports: No symptoms GI: Reports: No symptoms : Reports: No symptoms Musculoskeletal: Reports: No symptoms Skin: Reports: No symptoms Neurological: Reports: No symptoms Endocrine: Reports: No symptoms Hematologic/Lymphatic: Reports: No symptoms All Other Systems: Reviewed and Negative Past Medical History - Past Medical History Previously Healthy: Yes Endocrine: Reports: None Cardiovascular: Reports: None Respiratory: Reports: None Hematological: Reports: None Gastrointestinal: Reports: None Genitourinary: Reports: None Neuro/Psych: Reports: Anxiety, Depression Musculoskeletal: Reports: None Cancer: Reports: None - Surgical History General Surgical History: Reports: Orthopedic (fx right hand x2), Hernia Repair (INGUINAL HERNIA REPAIR A CHILD ) - Family History Family History: Reports: Unknown - Social History Smoking Status: Current every day smoker, Light tobacco smoker Hx Substance Use: Yes (ALCOHOL) Alcohol Screening: Occasionally Physical Exam - Physical Exam Appearance: Thin Ill-appearing: None Pain Distress: None Eyes: GUCCI, EOMI, Conjunctiva clear ENT: Ears normal, Nose normal, Oropharynx normal Neck: Supple Respiratory: Airway patent, Breath sounds clear, Breath sounds equal, Respirations nonlabored Cardiovascular: RRR, Pulses normal, No rub, No murmur GI/: Soft, Nontender, No masses, Bowel sounds normal, No Organomegaly Musculoskeletal: Normal strength Skin: Warm, Dry, Normal color Neurological: Sensation intact, Motor intact, Reflexes intact, Cranial nerves intact, Alert, Oriented Psychiatric: Anxious Critical Care Note - Critical Care Note Total Time (mins): 0 Course - Course Orders, Labs, Meds: Orders Category Date Time Status Lorazepam Inj [Ativan] MEDS 12/17/18 13:05 Discontinued 1 mg IM ONCE STA Lorazepam [Ativan] 1 ml MEDS 12/17/18 13:11 Discontinued .ROUTE .STK-MED Medications Discontinued Medications Generic Name Dose Route Start Last Admin Trade Name Freq PRN Reason Stop Dose Admin Lorazepam 1 mg 12/17/18 13:05 12/17/18 13:19 Ativan IM 12/17/18 13:06 Not Given ONCE STA Vital Signs: Temp Pulse Resp BP Pulse Ox 12/17/18 12:17 98.1 F 71 20 112/82 100 Departure - Departure Time of Disposition: 13:30 Disposition: HOME SELF-CARE Discharge Problem: Anxious mood Instructions: Generalized Anxiety Disorder (ED) Condition: Good Pt referred to PMD for follow-up: Yes IPMP verified?: No Additional Instructions: FOLLOW UP WITH [facility] M[facility] AND/OR pcp Allergies/Adverse Reactions: Allergies Penicillins Adverse Reaction (Verified 12/17/18 12:20) Hives Home Medications: Ambulatory Orders Heath Carbonate [Heath Carbonate Er] 450 mg PO BID 10/09/18 Paliperidone Palmitate [Invega Sustenna] 117 mg IM MONTHLY 10/09/18 Transfer Form Completed: Yes Disposition Discussed With: Patient
[2018-12-17] MEDS ORDERED: ATIVAN IM STA (13:05)
[2018-12-17] MEDS ORDERED: ATIVAN 1 ML ONE (13:11)
== END 2018-12-17 13:37 | disposition home or self-care (01) ==
LOC: ED 12:16
DX: F41.9 Anxiety disorder, unspecified (principal); Z72.0 Tobacco use
CPT/HCPCS: 96372; 99282

== ENCOUNTER 2019-03-11 14:17 | Outpatient (CLI) | END 2019-03-11 14:35 | disposition short-term general hospital (02) | LOC: AMBL 14:17 | PROVIDERS: ATTEND Internal Medicine | DX: R45.4 Irritability and anger (principal); F41.9 Anxiety disorder, unspecified ==

== ENCOUNTER 2023-10-05 16:16 | Inpatient (IN) ==
[2023-10-05] MEDS ORDERED: FOLIC ACID 1 MG in SODIUM CHLORIDE 50 ML IV ONE (16:33)
[2023-10-05] MEDS ORDERED: THIAMINE 100 MG in SODIUM CHLORIDE 50 ML IV ONE (16:33)
[2023-10-05] MEDS ORDERED: ATIVAN IVP STA (16:33)
[2023-10-05] MEDS ORDERED: SODIUM CHLORIDE 1,000 ML IV ONE (16:33)
[2023-10-05 16:38] VITALS: BMI 24.1
--- NOTE | 2023-10-05 16:46 | ED.PDOC ---
General ED Provider: Dr. LUKE ACOSTA DO Chief Complaint: Non-specific Complaint Stated Complaint: Patient is a 38 yo M here for weakness LE edema and itchy skin Patient tachycardic 137 with stable blood pressure Patient is alert and orietned x4 CGS 15 arrives with mother After speaking with him He seems to be in alcohol withdrawal He usually drinks 10 beers per day ( I suspect more) and reports only drinking 3 beers per day in the last 3 days He denies fevers chest pain, rash, dysuria or abdominal pain He uses marijuana but denies other drugs patient amenable to work up and treatment Time Seen by Provider: 10/05/23 16:33 Information Source: Patient and Family Nursing and Triage Documentation Reviewed and Agree: Yes What is Opioid Naive?: *Opioid Naive implies the patient is not already taking opioids or not chronically receiving opioids on a daily basis. *PRN dosing is not "usually" associated with tolerance. *Patients are at higher risk of over-sedation and aspiration. What is Opioid Tolerant?: *Opioid Tolerance implies less than the expected response to an opioid. *Acquired tolerance is defined by the patient taking 60mg of oral morphine daily (or equianalgesic dose of another opioid) for 1 week or more. *Often associated with chronic pain. *May take more than usual dose to achieve desired pain control. Review of Systems Review Of Systems Constitutional: Denies Chills or Fever Eyes: Denies Blindness or Drainage Ears, Nose, Mouth, Throat: Denies Ear pain or Nose pain Respiratory: Denies Cough or Stridor Cardiac: Denies Chest pain or Palpitations GI: Denies Constipated or Diarrhea Musculoskeletal: Reports Other (LE edema) Skin: Reports Other (itchy skin); Denies Bruising Neurological: Denies Anxiety or Depressed Endocrine: Denies No symptoms or Excessive sweating Hematologic/Lymphatic: Denies No symptoms or Anemia All Other Systems: Reviewed and Negative [facility] Medical History (Updated 10/05/23 @ 17:46 by LUKE ACOSTA DO) Meningitis G03.9 - Meningitis, unspecified (ICD-10) Depression Post traumatic stress disorder F32.9 - Major depressive disorder, single episode, unspecified (ICD-10) Family History Grandfather/Grandmother Diabetes Alcoholism Hypertension FATHER Alcoholism Other Kidney failure Social History (Updated 12/30/20 @ 08:35 by NURIA HUCKELBERRY, PA[employer]ROLL OFFICER) Smoking and tobacco status: Current every day smoker Tobacco type: cigarettes Smoking packs per day: 0.5 Tobacco: How many years used: 20 Quit status: considering quitting Alcohol intake: current Alcohol intake frequency: 3 or more drinks per day Alcohol type: beer Substance use type: marijuana and other Details: sometimes uses other drugs but nothing consistantly Kyra/scientologist: BUDDHIST Special kyra needs: No Agree to transfusion: Yes Adopted: No Caregiver/support person: Yes (children) Household members: children and other Other Household Members: mother Housing: apartment Marital status: X LEGALLY Number of children: 2 Highest education level completed: 9th grade Financial difficulty paying for basics: very hard Current occupational status: unemployed Pets and animals: No Leisure activites: exercise and music History of recent travel: No Sexually active: Yes Do you think of yourself as: straight/heterosexual Current gender identity: male Seatbelt use: always Drives intoxicated or rides with intoxicated milk truck driver: No Water heater temperature set < 120 degrees: Yes Working smoke detector in home: Yes Fire extinguisher in home: Yes Carbon monoxide detector in home: No Firearms in home: No Surgical History (Updated 05/25/20 @ 08:52 by [employer]) Status post hernia repair as a child Z98.890 - Other specified postprocedural states (ICD-10) Physical Exam Physical Exam Appearance: Reports Well-appearing, Well-nourished and Other (disheveled) Ill-appearing: Not Applicable Pain Distress: Not Applicable Eyes: Reports GUCCI and EOMI ENT: Reports Ears normal, Nose normal and Oropharynx normal Neck: Supple Respiratory: Reports Airway patent and Breath sounds clear Cardiovascular: Reports Pulses normal and Tachycardia GI/: Reports Soft and Nontender Musculoskeletal: Reports Normal strength and ROM intact Skin: Reports Warm, Dry and Other (LE edema) Neurological: Reports Sensation intact and Motor intact Psychiatric: Reports Affect appropriate and Mood appropriate Course Course 10/05/23 16:57 10/05/23 16:57 Orders, Labs, Meds: Lab Review 10/05/23 10/05/23 16:57 17:08 WBC 8.16 RBC 3.75 L Hgb 12.6 L Hct 36.8 L MCV 98.1 H MCH 33.6 H MCHC 34.2 RDW Coeff of Juanito 15.1 H Plt Count 309 Immature Gran % (Auto) 1.3 Neut % (Auto) 52.2 Lymph % (Auto) 32.4 Bath % (Auto) 11.9 H Eos % (Auto) 1.8 Baso % (Auto) 0.4 Neut # (Auto) 4.3 Lymph # (Auto) 2.6 Bath # (Auto) 1.0 Eos # (Auto) 0.2 Baso # (Auto) 0.0 Immature Gran # (Auto) 0.1 Sodium 134.5 Potassium 2.81 L Chloride 95.6 L Carbon Dioxide 31.7 H Anion Gap 10.01 BUN 5.0 L Creatinine 0.49 L Estimated GFR (MDRD) 192.00 BUN/Creatinine Ratio 10.20 Glucose 115.3 H Lactic Acid 3.11 H Calcium 9.26 Total Bilirubin 0.79 AST 186.6 H ALT 240.2 H Alkaline Phosphatase 138.3 H Total Protein 8.34 H Albumin 3.85 Globulin 4.49 Albumin/Globulin Ratio 0.85 Lipase 329.3 H TSH Pending Free T4 1.64 Urine Color Yellow Urine Clarity Clear Urine pH 7.0 Ur Specific Prosperity 1.015 Urine Protein Negative Urine Glucose (UA) Negative Urine Ketones Negative Urine Blood Negative Urine Nitrite Negative Urine Bilirubin Negative Urine Urobilinogen >=8.0 Ur Leukocyte Esterase Negative Urine Opiates Screen Positive H Ur Oxycodone Screen Negative Urine Methadone Screen Negative Ur Barbiturates Screen Negative U Tricyclic Antidepress Negative Ur Phencyclidine Scrn Negative Ur Amphetamine Screen Negative U Methamphetamines Scrn Negative U Benzodiazepines Scrn Negative Urine Cocaine Screen Negative U Cannabinoids Screen Positive H Plasma/Serum Alcohol < 10.0 Influ A Molecular Assay Negative by naat Influ B Molecular Assay Negative by naat RSV Antigen Negative by naat SARS CoV-2 RNA Rapid JULI Negative Orders Category Date Time Status ALCOHOL LEVEL [BLOOD ALCOHOL] Stat LAB 10/05/23 16:57 Results CBC W/ AUTO DIFF Stat LAB 10/05/23 16:57 Completed COMPREHENSIVE METABOLIC PANEL Stat LAB 10/05/23 16:57 Results DRUG SCREEN (RAPID FOR ED) [DRUG SCREEN, URINE, RAPID] LAB 10/05/23 17:08 Completed Stat FLU A & B MOLECULAR [FLU A/B MOLECULAR] Stat LAB 10/05/23 16:57 Completed FREE T4 (FREE THYROXINE) Stat LAB 10/05/23 16:57 Completed LACTIC ACID Stat LAB 10/05/23 16:57 Completed LIPASE Stat LAB 10/05/23 16:57 Results RSV Stat LAB 10/05/23 16:57 Completed SARS COV-2 RNA RAPID JULI Stat LAB 10/05/23 16:57 Completed TSH [THYROID STIMULATING HORMONE] Stat LAB 10/05/23 16:57 Results URINALYSIS C & S IF INDICATED Stat LAB 10/05/23 17:08 Completed Folic Acid Meds 10/05/23 17:04 Discontinued 5 mg .ROUTE .STK-MED ONE Folic Acid 1 mg Meds 10/05/23 16:33 Discontinued 0.9 % Sodium Chloride [Sodium Chloride] 50 ml IV ONCE Lorazepam [Ativan] Meds 10/05/23 16:33 Discontinued 1 mg IVP ONCE STA Magnesium Sulfate Bag [Magnesium Sulfate 1 gm/100 ml Meds 10/05/23 17:24 Active D5w] 1 gm in 100 ml IV ONCE Potassium Chloride [K-Dur] Meds 10/05/23 17:24 Discontinued 40 meq PO ONCE ONE Potassium Chloride in 0.9%NaCl [Sodium Chloride 0.9%- Meds 10/05/23 17:26 Active KCl 40Meq] 1,000 ml IV 250 mls/hr Sodium Chloride 0.9% [Sodium Chloride] 1,000 ml Meds 10/05/23 16:33 Discontinued IV BOLUS Vitamin B-1 Inj [Thiamine] Meds 10/05/23 17:02 Discontinued 200 mg .ROUTE .STK-MED ONE Vitamin B-1 Inj [Thiamine] 100 mg Meds 10/05/23 16:33 Discontinued 0.9 % Sodium Chloride [Sodium Chloride] 50 ml IV ONCE Medications Generic Name Dose Route Start Last Admin Trade Name Freq PRN Reason Stop Dose Admin Magnesium Sulfate/Dextrose 1 gm in 100 mls @ 100 mls/hr 10/05/23 17:24 10/05/23 17:32 Magnesium Sulfate 1 Gm/100 Ml D5w IV 10/05/23 18:23 100 mls/hr ONCE ONE Administration Potassium Chloride/Sodium Chloride 1,000 mls @ 250 mls/hr 10/05/23 17:26 Sodium Chloride 0.9%-Kcl 40meq IV 10/05/23 21:25 .Q4H ONE Discontinued Medications Generic Name Dose Route Start Last Admin Trade Name Freq PRN Reason Stop Dose Admin Sodium Chloride 1,000 mls @ 1,000 mls/hr 10/05/23 16:33 10/05/23 17:08 Sodium Chloride IV 10/05/23 17:32 1,000 mls/hr BOLUS ONE Administration Folic Acid 1 mg/ Sodium 50.2 mls @ 100 mls/hr 10/05/23 16:33 10/05/23 17:11 Chloride IV 10/05/23 17:03 100 mls/hr ONCE ONE Administration Thiamine HCl 100 mg/ Sodium 51 mls @ 100 mls/hr 10/05/23 16:33 10/05/23 17:08 Chloride IV 10/05/23 17:03 100 mls/hr ONCE ONE Administration Lorazepam 1 mg 10/05/23 16:33 10/05/23 17:07 Lorazepam Inj 2 Mg/Ml Vial IVP 10/05/23 16:34 1 mg ONCE STA Administration Potassium Chloride 40 meq 10/05/23 17:24 10/05/23 17:32 Potassium Chloride 20 Meq Tab PO 10/05/23 17:25 40 meq ONCE ONE Administration Vital Signs: Temp Pulse Resp BP Pulse Ox 10/05/23 16:33 98.4 F 136 H 16 149/100 H 98 Hospitalist paged for admission MDM: patient is a 38 yo M here for skin itching weakness and discomfort Patient afebrile with tachycardia improving with treating alcohol withdrawal Exam concerning for tachycardia patient has no pain 3+ labs and no images reviewed by me Patient improved with fluids, benzos and vitamins Consults to Hospitalist WDX: Alcohol withdrawal, hypokalemia, tachycardia, formication cute high complexity DDX: I considered sepsis, overdose, shock but these are less likely SDOH: Patient needs to avoid tobacco drugs alcohol and establish with a PCP for better outcomes He agrees to admission All questions answered patient discharged stable Discharge Plan Discharge Patient Disposition: PLACED OBSERVATION Discharge Problem: Alcohol abuse with withdrawal, Formication, Weakness, Acute hypokalemia Did you review [place] GRAPHIC DESIGN PROFESSOR for ALL controlled substances?: Not Applicable ED Provider: LUKE ACOSTA Condition: Fair Physician Progress Note: []
[2023-10-05] MEDS ORDERED: THIAMINE ONE (17:02)
[2023-10-05] MEDS ORDERED: FOLIC ACID ONE (17:04)
[2023-10-05 17:05] LABS: BASOPHILS % (AUTO) 0.4 % (0.0-3.0); EOSINOPHILS # (AUTO) 0.2 K/ul (0.0-0.7); EOSINOPHILS % (AUTO) 1.8 % (0.0-7.0); HEMATOCRIT 36.8 % (42.0-52.0); HEMOGLOBIN 12.6 g/dl (14.0-18.0); IMMATURE GRANULOCYTE # (AUTO) 0.1 (0.0-1.0); IMMATURE GRANULOCYTE % (AUTO) 1.3 % (0.0-5.0); LYMPHOCYTES # (AUTO) 2.6 K/uL (0.60-3.4); LYMPHOCYTES % (AUTO) 32.4 (10.0-50.0); MEAN CORPUSCULAR HEMOGLOBIN 33.6 pg (27.0-31.0); MEAN CORPUSCULAR HGB CONC 34.2 (31.8-35.4); MEAN CORPUSCULAR VOLUME 98.1 fl (80.0-94.0); MONOCYTES % (AUTO) 11.9 (0-10); NEUTROPHILS # (AUTO) 4.3 K/ul (2.0-6.9); NEUTROPHILS % (AUTO) 52.2 % (42.2-75.2); PLATELET COUNT 309 10^3/uL (140-440); RDW COEFFICIENT OF VARIATION 15.1 % (11.6-14.8); RED BLOOD COUNT 3.75 10^6/ul (4.70-6.10); WHITE BLOOD COUNT 8.16 K/ul (4.2-10.2)
[2023-10-05 17:19] LABS: BILIRUBIN,URINE Negative (NEGATIVE); CLARITY,URINE Clear (CLEAR); COLOR,URINE Yellow (YELLOW); GLUCOSE, URINE (UA) Negative (NEGATIVE); KETONES,URINE Negative (NEGATIVE); LEUKOCYTE ESTERASE ,URINE Negative (NEGATIVE); NITRITE,URINE Negative (NEGATIVE); PROTEIN,URINE Negative (NEGATIVE); URINE, BLOOD Negative (NEGATIVE); UROBILINOGEN,URINE >=8.0 (0.2)
[2023-10-05 17:20] LABS: ALANINE AMINOTRANSFERASE 240.2 U/L (0-50); ALBUMIN 3.85 g/dL (3.5-5.0); ALKALINE PHOSPHATASE 138.3 U/L (38-126); ASPARTATE AMINO TRANSFERASE 186.6 U/L (17-59); BILIRUBIN,TOTAL 0.79 mg/dL (0.2-1.3); CALCIUM 9.26 mg/dL (8.4-10.2); CARBON DIOXIDE 31.7 mmol/L (22-30.0); CHLORIDE 95.6 mmol/L (98-107); CREATININE 0.49 mg/dL (0.60-1.10); GLUCOSE 115.3 mg/dL (74-106); LIPASE 329.3 U/L (23-300); POTASSIUM 2.81 mmol/L (3.5-5.1); SODIUM 134.5 mmol/L (134.5-145); TOTAL PROTEIN 8.34 g/dL (6.3-8.2)
[2023-10-05 17:21] LABS: BLOOD ALCOHOL < 10.0 mg/dL (0.0-50.0)
[2023-10-05] MEDS ORDERED: K-DUR PO ONE (17:24)
[2023-10-05] MEDS ORDERED: MAGNESIUM SULFATE 1 GM/100 ML D5W 1 GM/100 ML BAG IV ONE (17:24)
[2023-10-05] MEDS ORDERED: SODIUM CHLORIDE 0.9%-KCL 40MEQ 1,000 ML IV ONE (17:26)
[2023-10-05 17:30] LABS: SARS COV-2 RNA RAPID NAAT NEGATIVE (NEGATIVE)
[2023-10-05 17:31] LABS: CANNABINOID SCREEN,URINE POSITIVE (NEGATIVE)
[2023-10-05 17:32] LABS: RSV MOLECULAR NEGATIVE BY NAAT (NEGATIVE)
[2023-10-05 17:32] LABS: AMPHETAMINE SCREEN,URINE NEGATIVE (NEGATIVE); BARBITURATE SCREEN,URINE NEGATIVE (NEGATIVE); BENZODIAZEPINES SCREEN,URINE NEGATIVE (NEGATIVE); COCAIN SCREEN,URINE NEGATIVE (NEGATIVE); METHADONE URINE SCREEN NEGATIVE (NEGATIVE); METHAMPHETAMINES SCREEN,URINE NEGATIVE (NEGATIVE); OPIATE SCREEN,URINE POSITIVE (NEGATIVE); OXYCODONE URINE SCREEN NEGATIVE (NEGATIVE); PHENCYCLIDINE SCREEN,URINE NEGATIVE (NEGATIVE); TRICYCLIC ANTIDEPRESSANTS URIN NEGATIVE (NEGATIVE)
[2023-10-05 17:33] LABS: MOLECULAR FLU A NEGATIVE BY NAAT (NEGATIVE); MOLECULAR FLU B NEGATIVE BY NAAT (NEGATIVE)
[2023-10-05] MEDS ORDERED: ZOFRAN 4 MG/2 ML IVP PRN (18:13)
[2023-10-05] MEDS: ATIVAN IVP PRN (21:16)
[2023-10-06] MEDS: TYLENOL PO PRN ×2 (00:37→08:45)
[2023-10-06] MEDS: ATIVAN PO PRN ×3 (04:16→20:24)
[2023-10-06] MEDS: LACTATED RINGERS 1,000 ML IV SCH ×2 (04:25→08:51)
[2023-10-06] MEDS ORDERED: HYDRALAZINE HCL IVP STA (05:51)
[2023-10-06 06:03] LABS: BASOPHILS % (AUTO) 0.1 % (0.0-3.0); EOSINOPHILS # (AUTO) 0.1 K/ul (0.0-0.7); EOSINOPHILS % (AUTO) 1.4 % (0.0-7.0); HEMATOCRIT 31.2 % (42.0-52.0); HEMOGLOBIN 10.4 g/dl (14.0-18.0); IMMATURE GRANULOCYTE # (AUTO) 0.1 (0.0-1.0); IMMATURE GRANULOCYTE % (AUTO) 1.1 % (0.0-5.0); LYMPHOCYTES # (AUTO) 2.5 K/uL (0.60-3.4); LYMPHOCYTES % (AUTO) 35.4 (10.0-50.0); MEAN CORPUSCULAR HGB CONC 33.3 (31.8-35.4); MONOCYTES # (AUTO) 0.8 K/uL (0.4-2.0); MONOCYTES % (AUTO) 11.8 (0-10); NEUTROPHILS # (AUTO) 3.5 K/ul (2.0-6.9); NEUTROPHILS % (AUTO) 50.2 % (42.2-75.2); PLATELET COUNT 264 10^3/uL (140-440); RDW COEFFICIENT OF VARIATION 15.4 % (11.6-14.8); RED BLOOD COUNT 3.15 10^6/ul (4.70-6.10); WHITE BLOOD COUNT 7.06 K/ul (4.2-10.2)
[2023-10-06 06:22] LABS: ALANINE AMINOTRANSFERASE 185.5 U/L (0-50); ALBUMIN 3.04 g/dL (3.5-5.0); ASPARTATE AMINO TRANSFERASE 115.8 U/L (17-59); BILIRUBIN,TOTAL 0.62 mg/dL (0.2-1.3); BLOOD UREA NITROGEN 6.4 mg/dL (9-20); CALCIUM 8.42 mg/dL (8.4-10.2); CARBON DIOXIDE 30.1 mmol/L (22-30.0); CHLORIDE 102.5 mmol/L (98-107); CREATININE 0.58 mg/dL (0.60-1.10); GLUCOSE 117.3 mg/dL (74-106); MAGNESIUM 1.72 mg/dL (1.6-2.3); POTASSIUM 3.89 mmol/L (3.5-5.1); SODIUM 135.3 mmol/L (134.5-145); TOTAL PROTEIN 6.77 g/dL (6.3-8.2)
[2023-10-06] MEDS: FOLIC ACID PO SCH (08:24)
[2023-10-06] MEDS: MULTIVITAMIN TABLET PO SCH (08:24)
[2023-10-06] MEDS: THIAMINE PO SCH (08:24)
[2023-10-06] MEDS ORDERED: ZESTRIL PO SCH (09:00)
[2023-10-06] MEDS ORDERED: CLEOCIN 600 MG/50 ML D5W 600 MG/50 ML BAG IV SCH (09:30)
[2023-10-06] MEDS: NICODERM 21 MG TD SCH (10:14)
[2023-10-06] MEDS: CLEOCIN 600 MG/50 ML D5W 600 MG/50 ML BAG IV SCH ×3 (10:15→20:57)
--- NOTE | 2023-10-06 11:27 | CT ---
EXAM: CT RIGHT FOOT WITHOUT CONTRAST. HISTORY: Redness and swelling. Right foot pain. TECHNIQUE: Helical axial sections were obtained through the right foot. Coronal and sagittal reforma tted images were obtained from the axial source images. Images were reviewed on a high-resolution [employer] workstation. DICOM images are available. CT Dose Reduction Techniques Performed: Yes. Intravenous contrast: None. COMPARISON: None. FINDINGS: There is diffuse soft tissue swelling about the dorsal midfoot and forefoot primarily sugge sting cellulitis. No compelling evidence of focal fluid collection or abscess. The osseous structur es appear grossly intact. No bony destructive change, no fracture. No gross periostitis. The Achil les silhouette and plantar fascia are unremarkable. No ankle joint effusion. No significant osteoar thritic change. No malalignment. IMPRESSION: 1. Cellulitis without evidence of osteomyelitis, gross focal fluid collection, or abscess. No signif icant arthritic change. All CT scans are performed using dose optimization techniques as appropriate to the performed exam an d include at least one of the following: Automated exposure control, adjustment of the mA and/or kV according t o size, and the use of iterative reconstruction technique.
--- NOTE | 2023-10-06 11:30 | CT ---
EXAM: CT OF THE LEFT FOOT WITHOUT CONTRAST COMPARISON: None available. HISTORY: Redness and swelling. TECHNIQUE: Noncontrast CT images of the left foot/ankle were obtained. Axial reconstructions with s agittal and coronal reformats were provided. FINDINGS: Transversely oriented lucency and cortical irregularity at the level of the head and neck of the second proximal phalanx concerning for a nondisplaced fracture at that site. No immediately o verlying soft tissue wound to suggest definite evidence of acute osteomyelitis at that site. No danielle tional fractures. Diffuse demineralization. Degenerative changes of the forefoot most pronounced at the interphalangeal joints. Mild degenerative spurring at the tarsometatarsal joints and throughout the ankle/hind-foot. Small calcaneal spurs. The talar dome and ankle mortise are unremarkable appe arance. Subcutaneous edema most pronounced throughout the distal forefoot without deep soft tissue ulcer or d rainable fluid collection. Subcutaneous edema also extends through the ankle/hind-foot and heel. No deep soft tissue gas. No soft tissue mass identified. IMPRESSION: Nondisplaced fracture through the head and neck of the second proximal phalanx as descri bed. No immediately overlying soft tissue wound to suggest definite evidence of acute osteomyelitis at that level. Soft tissue swelling is nonspecific but may represent cellulitis. No drainable fluid collection. Chronic / degenerative changes as detailed above. All CT scans are performed using dose optimization techniques as appropriate to the performed exam an d include at least one of the following: Automated exposure control, adjustment of the mA and/or kV according t o size, and the use of iterative reconstruction technique.
--- NOTE | 2023-10-06 11:58 | PCM ---
Date of Service Date Seen by Provider: 10/06/23 Time Seen by Provider: 09:00 Admit Day/Time Admission Date: 10/05/23 Reason for Admission Chief Complaint: ALCHOL ABUSE W/WITHDRAW,FORMICATION,ACUTE HYPOKALE Hospital Provider Hospital Provider[facility] History of Present Illness History of Present Illness: 38 yo male presented to the ER with complaints of weakness and leg swelling. ER provider reported patient has history of alcohol abuse and had not drank much over the last 3 days and was under the impression he was in alcohol withdrawal. ETOH was negative. UDS positive for benzos and marijuana in which he did report. Reported itchy skin and felt his skin was crawling. No mention of edema to lower extremities. Upon my exam, patient is alert and oriented x4. States he came in cause this happens to him often and he has to be hospitalized. States that he has had something following him and his family. Asked patient if he was experiencing hearing or seeing things. Patient states yes that this black figure follows him and slashes his back. He is concerned to be away from his family very long in fear of this being harming them. States that he hears voices at times telling him to hurt himself. States he has been dealing with this over the course of 4 years. Has been on medication in the past but doesn't take anything now. Voiced concerns of pain and swelling to bilateral feet. States they have been that way for several days and not sure why. Told nursing staff he had skate board injury many years ago but no other recent issues. Due to hallucinations and delusions, patient is unable to provide further HPI/ROS. Case Discussed With Case Discussed With: Patient's case was discussed with the ER Physicians, Dr. 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 - Schizophreniform disorder (ICD-10) Mood disorder (10/09/18) F39 - Unspecified mood [affective] disorder (ICD-10) JENNY (generalized anxiety disorder) (09/16/15) F41.1 - Generalized anxiety disorder (ICD-10) Meningitis G03.9 - Meningitis, unspecified (ICD-10) Depression Post traumatic stress disorder F32.9 - Major depressive disorder, single episode, unspecified (ICD-10) Surgical History Status post hernia repair as a child Z98.890 - Other specified postprocedural states (ICD-10) Family History Grandfather/Grandmother Diabetes Alcoholism Hypertension FATHER Alcoholism Other Kidney failure Social History Smoking and tobacco status: Current every day smoker Tobacco type: cigarettes Smoking packs per day: 0.5 Tobacco: How many years used: 20 Quit status: considering quitting Alcohol intake: current Alcohol intake frequency: 3 or more drinks per day Alcohol type: beer Substance use type: marijuana and other Details: sometimes uses other drugs but nothing consistantly Kyra/anglican: SABIANISM Special kyra needs: No Agree to transfusion: Yes Adopted: No Caregiver/support person: Yes (children) Household members: children and other Other Household Members: mother Housing: apartment Marital status: X LEGALLY Lives independently: No Number of children: 2 Highest education level completed: 9th grade Financial difficulty paying for basics: very hard Current occupational status: unemployed Pets and animals: No Leisure activites: exercise and music History of recent travel: No Sexually active: Yes Do you think of yourself as: straight/heterosexual Current gender identity: male Seatbelt use: always Drives intoxicated or rides with intoxicated commercial trailer truck driver: No Current diet type/program: regular Water heater temperature set < 120 degrees: Yes Working smoke detector in home: Yes Fire extinguisher in home: Yes Carbon monoxide detector in home: No Firearms in home: No Allergies Allergies Allergy/AdvReac Type Severity Reaction Status Date / Time Penicillins AdvReac Hives Verified 10/05/23 16:30 Current Medications Home Medications aripiprazole 2 mg tablet (Abilify) 2 mg PO QDAY #30 tabs 12/30/20 [Rx Confirmed 10/05/23 Last Taken Unknown] diphenhydramine HCl 25 mg tablet (Benadryl Allergy) 100 mg PO QHS PRN sleep 12/30/20 [History Confirmed 10/05/23 Last Taken Unknown] fluoxetine 20 mg capsule (Prozac) 20 mg PO QDAY #30 caps 12/30/20 [Rx Confirmed 10/05/23 Last Taken Unknown] hydroxyzine HCl 50 mg tablet 25 - 50 mg (0.5 - 1 x 50 mg) PO QID PRN anxiety #120 tabs 12/30/20 [Rx Confirmed 10/05/23 Last Taken Unknown] melatonin 10 mg tablet 10 mg PO QHS PRN sleep 12/30/20 [History Confirmed 10/05/23 Last Taken Unknown] trazodone 100 mg tablet 50 - 100 mg (0.5 - 1 x 100 mg) PO QHS PRN insomnia #30 tabs 12/30/20 [Rx Confirmed 10/05/23 Last Taken Unknown] Home Acetaminophen (Acetaminophen 325 Mg Tablet) 650 mg PO Q4H PRN PRN Reason: Mild Pain Last Admin: 10/06/23 08:45 Dose: 650 mg Folic Acid (Folic Acid 1 Mg Tablet) 1 mg PO DAILY [facility] Last Admin: 10/06/23 08:24 Dose: 1 mg Hydralazine HCl (Hydralazine Hcl 20 Mg/Ml Sdv) 10 mg IVP Q6H PRN PRN Reason: Hypertension Last Admin: 10/07/23 02:25 Dose: 10 mg Clindamycin Phosphate (Cleocin 600 Mg/50 Ml D5w) 600 mg in 50 mls @ 75 mls/hr IV Q8HR MARIA C Stop: 10/09/23 09:59 Last Admin: 10/07/23 04:47 Dose: 75 mls/hr Ketorolac Tromethamine (Ketorolac Tromethamine 15 Mg/Ml Vial) 15 mg IVP Q6HR PRN PRN Reason: Pain Stop: 10/10/23 12:23 Last Admin: 10/07/23 04:18 Dose: 15 mg Lisinopril (Lisinopril 10 Mg Tablet) 20 mg PO BID [facility] Lorazepam (Lorazepam 1 Mg Tablet) 1 mg PO Q2HR PRN PRN Reason: Withdrawal Last Admin: 10/07/23 03:07 Dose: 1 mg Lorazepam (Lorazepam Inj 2 Mg/Ml Vial) 1 mg IVP Q2HR PRN PRN Reason: Withdrawal Last Admin: 10/06/23 13:33 Dose: 1 mg Multivitamins (Multivitamin 1 Tab) 1 tab PO DAILY [facility] Last Admin: 10/06/23 08:24 Dose: 1 tab Nicotine (Nicotine 21 Mg Patch.Td24) 1 patch TD DAILY [facility] Last Admin: 10/06/23 10:14 Dose: 1 patch Olanzapine (Olanzapine 2.5 Mg Tablet) 5 mg PO BID [facility] Ondansetron HCl (Ondansetron Hcl/Pf 4 Mg/2 Ml Sdv) 4 mg IVP Q6H PRN PRN Reason: Nausea / Vomiting Potassium Chloride (Potassium Chloride 20 Meq Tab) 40 meq PO ONCE ONE Stop: 10/07/23 06:25 Thiamine HCl (Vitamin B-1 100 Mg Tablet) 100 mg PO DAILY [facility] Last Admin: 10/06/23 08:24 Dose: 100 mg Discontinued Medications Hydralazine HCl (Hydralazine Hcl 20 Mg/Ml Sdv) 10 mg IVP ONCE STA Stop: 10/06/23 05:52 Last Admin: 10/06/23 06:00 Dose: 10 mg Sodium Chloride (Sodium Chloride) 1,000 mls @ 1,000 mls/hr IV BOLUS ONE Stop: 10/05/23 17:32 Last Infusion: 10/06/23 07:28 Dose: Infused Folic Acid 1 mg/ Sodium (Chloride) 50.2 mls @ 100 mls/hr IV ONCE ONE Stop: 10/05/23 17:03 Last Admin: 10/05/23 17:11 Dose: 100 mls/hr Thiamine HCl 100 mg/ Sodium (Chloride) 51 mls @ 100 mls/hr IV ONCE ONE Stop: 10/05/23 17:03 Last Admin: 10/05/23 17:08 Dose: 100 mls/hr Magnesium Sulfate/Dextrose (Magnesium Sulfate 1 Gm/100 Ml D5w) 1 gm in 100 mls @ 100 mls/hr IV ONCE ONE Stop: 10/05/23 18:23 Last Admin: 10/05/23 17:32 Dose: 100 mls/hr Potassium Chloride/Sodium Chloride (Sodium Chloride 0.9%-Kcl 40meq) 1,000 mls @ 250 mls/hr IV .Q4H ONE Stop: 10/05/23 21:25 Last Infusion: 10/06/23 07:29 Dose: Infused Lactated Ringer's (Lactated Ringers) 1,000 mls @ 100 mls/hr IV .Q10H [facility] Last Admin: 10/06/23 08:51 Dose: Not Given Clindamycin Phosphate (Cleocin 600 Mg/50 Ml D5w) 600 mg in 50 mls @ 75 mls/hr IV Q8HR MARIA C Stop: 10/09/23 09:29 Last Admin: 10/06/23 10:24 Dose: Not Given Labetalol HCl (Labetalol Hcl 20 Mg/4 Ml Disp.Syrin) 10 mg IVP ONCE ONE Stop: 10/07/23 06:15 Last Admin: 10/07/23 06:23 Dose: 10 mg Lisinopril (Lisinopril 10 Mg Tablet) 10 mg PO DAILY MARIA C Stop: 10/07/23 06:13 Last Admin: 10/06/23 08:24 Dose: 10 mg Lorazepam (Lorazepam Inj 2 Mg/Ml Vial) 1 mg IVP ONCE STA Stop: 10/05/23 16:34 Last Admin: 10/05/23 17:07 Dose: 1 mg Potassium Chloride (Potassium Chloride 20 Meq Tab) 40 meq PO ONCE ONE Stop: 10/05/23 17:25 Last Admin: 10/05/23 17:32 Dose: 40 meq Opioid Naive vs. Tolerant Does Patient Take Opioids?: Yes Is Patient Opioid Naive?: No What is Opioid Naive?: *Opioid Naive implies the patient is not already taking opioids or not chronically receiving opioids on a daily basis. *PRN dosing is not "usually" associated with tolerance. *Patients are at higher risk of over-sedation and aspiration. Is Patient Opioid Tolerant?: No What is Opioid Tolerant?: *Opioid Tolerance implies less than the expected response to an opioid. *Acquired tolerance is defined by the patient taking 60mg of oral morphine daily (or equianalgesic dose of another opioid) for 1 week or more. *Often associated with chronic pain. *May take more than usual dose to achieve desired pain control. Review of Systems Psychiatric: Reports Anxiety and Hallucinations (command, auditory and visual) Physical examination Most Recent Vital Signs: Most Recent Vital Signs Temperature 97.1 F L 10/06/23 09:25 Temperature Source Tympanic 10/06/23 09:25 Temperature Source Infrared 10/05/23 16:33 Pulse Rate 120 H 10/06/23 10:00 Respiratory Rate 20 10/06/23 09:25 Blood Pressure 142/104 H 10/06/23 10:00 Blood Pressure Mean 124 10/06/23 09:25 Blood Pressure Left Arm 146/101 10/05/23 19:04 Blood Pressure Location Left Arm 10/06/23 09:25 Blood Pressure Position Supine 10/06/23 09:25 O2 Sat by Pulse Oximetry 99 10/06/23 09:25 Oxygen Delivery Method Room Air 10/06/23 10:00 Height 5 ft 8 in 10/05/23 19:04 Weight 158 lb 12 oz 10/05/23 19:04 Telemetry Type Remote Telemetry 10/06/23 07:00 Telemetry Monitoring Continues 10/06/23 07:00 Telemetry Heart Rate 123 H 10/06/23 07:00 EKG VA Interval 0.16 10/06/23 07:00 EKG QRS Interval 0.07 10/06/23 07:00 Telemetry Strip Reading Sinus Tachycardia 10/06/23 07:00 Appearance: Positive No Apparent Distress, Alert and Oriented x3 and Other (disheveled) Skin: Positive Other (erythema and swelling to bilateral feet R>L) HEENT: Positive Normocephalic and PERRLA Neck: Positive Supple and Midline Trachea Chest/Lungs: Positive Symmetrical With Equal Breath Sounds, Clear to Auscultation Bilaterally and Good Air Movement all 4 Lung She[place] Heart: Positive RRR, Pulses Normal and Tachycardia GI/: Positive Soft, Nontender, Bowel Sounds Normal and No Distention Musculoskeletal: Positive Not Examined Extremities: Positive Intact Peripheral Pulses, Stable Joints Without Laxity and Good ROM in All Joints Neurological: Positive Sensation Intact, Motor intact, Reflexes Intact, Alert and Oriented Psychiatric: Positive Oriented x4 and Other (delusions and hallucinations present, calm, cooperative) Labs This Visit Labs This Visit: Labs This Visit 10/05/23 10/05/23 10/06/23 16:57 17:08 05:57 WBC 8.16 7.06 RBC 3.75 L 3.15 L Hgb 12.6 L 10.4 L Hct 36.8 L 31.2 L MCV 98.1 H 99.0 H MCH 33.6 H 33.0 H MCHC 34.2 33.3 RDW Coeff of Juanito 15.1 H 15.4 H Plt Count 309 264 Immature Gran % (Auto) 1.3 1.1 Neut % (Auto) 52.2 50.2 Lymph % (Auto) 32.4 35.4 Crawford % (Auto) 11.9 H 11.8 H Eos % (Auto) 1.8 1.4 Baso % (Auto) 0.4 0.1 Neut # (Auto) 4.3 3.5 Lymph # (Auto) 2.6 2.5 Crawford # (Auto) 1.0 0.8 Eos # (Auto) 0.2 0.1 Baso # (Auto) 0.0 0.0 Immature Gran # (Auto) 0.1 0.1 Sodium 134.5 135.3 Potassium 2.81 L 3.89 Chloride 95.6 L 102.5 Carbon Dioxide 31.7 H 30.1 H Anion Gap 10.01 6.59 BUN 5.0 L 6.4 L Creatinine 0.49 L 0.58 L Estimated GFR (MDRD) 192.00 158.00 BUN/Creatinine Ratio 10.20 11.03 Glucose 115.3 H 117.3 H Lactic Acid 3.11 H Calcium 9.26 8.42 Magnesium 1.72 Total Bilirubin 0.79 0.62 AST 186.6 H 115.8 H D ALT 240.2 H 185.5 H D Alkaline Phosphatase 138.3 H 114.0 Total Protein 8.34 H 6.77 Albumin 3.85 3.04 L Globulin 4.49 3.73 Albumin/Globulin Ratio 0.85 0.81 Lipase 329.3 H TSH 2.720 Free T4 1.64 Urine Color Yellow Urine Clarity Clear Urine pH 7.0 Ur Specific Grimsley 1.015 Urine Protein Negative Urine Glucose (UA) Negative Urine Ketones Negative Urine Blood Negative Urine Nitrite Negative Urine Bilirubin Negative Urine Urobilinogen >=8.0 Ur Leukocyte Esterase Negative Urine Opiates Screen Positive H Ur Oxycodone Screen Negative Urine Methadone Screen Negative Ur Barbiturates Screen Negative U Tricyclic Antidepress Negative Ur Phencyclidine Scrn Negative Ur Amphetamine Screen Negative U Methamphetamines Scrn Negative U Benzodiazepines Scrn Negative Urine Cocaine Screen Negative U Cannabinoids Screen Positive H Plasma/Serum Alcohol < 10.0 Influ A Molecular Assay Negative by naat Influ B Molecular Assay Negative by naat RSV Antigen Negative by naat SARS CoV-2 RNA Rapid JULI Negative Imaging Imaging: EXAM: CT RIGHT FOOT WITHOUT CONTRAST. FINDINGS: There is diffuse soft tissue swelling about the dorsal midfoot and forefoot primarily suggesting cellulitis. No compelling evidence of focal fluid collection or abscess. The osseous structures appear grossly intact. No bony destructive change, no fracture. No gross periostitis. The Achilles silhouette and plantar fascia are unremarkable. No ankle joint effusion. No significant osteoarthritic change. No malalignment. IMPRESSION: 1. Cellulitis without evidence of osteomyelitis, gross focal fluid collection, or abscess. No significant arthritic change. EXAM: CT OF THE LEFT FOOT WITHOUT CONTRAST FINDINGS: Transversely oriented lucency and cortical irregularity at the level of the head and neck of the second proximal phalanx concerning for a nondisplaced fracture at that site. No immediately overlying soft tissue wound to suggest definite evidence of acute osteomyelitis at that site. No additional fractures. Diffuse demineralization. Degenerative changes of the forefoot most pronounced at the interphalangeal joints. Mild degenerative spurring at the tarsometatarsal joints and throughout the ankle/hind-foot. Small calcaneal spurs. The talar dome and ankle mortise are unremarkable appearance. Subcutaneous edema most pronounced throughout the distal forefoot without deep soft tissue ulcer or drainable fluid collection. Subcutaneous edema also extends through the ankle/hind-foot and heel. No deep soft tissue gas. No soft tissue mass identified. IMPRESSION: Nondisplaced fracture through the head and neck of the second proximal phalanx as described. No immediately overlying soft tissue wound to suggest definite evidence of acute osteomyelitis at that level. Soft tissue swelling is nonspecific but may represent cellulitis. No drainable fluid collection. Chronic / degenerative changes as detailed above. Review Statement Review Statement: I have independently reviewed and interpreted the labs/EKGs/imaging that were ordered by the ER provider. I have reviewed all outside records that are available currently in our EMR including imaging/notes/labs from previous visits. Plan Plan: 1. Cellulitis to bilateral feet - clindamycin Q8H IVPB, no open wounds to culture, checking CRP, tylenol and toradol for pain 2. Alcohol Withdrawal - CIWA protocol, CIWA scores low, no obvious signs pre sent, has not had alcohol over the past 4-5 days, monitor 3. Schizophrenia with Command Hallucinations - [facility] evaluated and is working on psychiatric placement for when patient becomes medically stable, suicide precautions, will medicate if needed 4. Tobacco use - nicotine patch daily 5. Hypokalemia - Replaced. Monitor 6. Elevated LFTS - chronic alcohol abuse, trending down, no pain or symptoms, monitor 7. Hypertension - uncontrolled, started on lisinopril, hydralazine prn DVT Prophylaxis: Up with assist Time Spent: Greater than 80 minutes spent with patient, 50% of the time spent with this patient was devoted to counseling and coordination of care. [facility]in minutes spent discussing advance care planning. Smoking Cessation: 5 minutes spent discussing smoking cessation. Disposition: Admit to: Med/surg Inpatient Full Code Discussed Plan of Care with Dr. Trena Barrera. Spoke with mother, Candace, for further information and to update on plan of care. Reports patient has been feeling bad for over a week. Unable to walk. Has had swelling and pain to his feet. Does report alcohol use of 1 pack of a beer daily but has not done that in over a week. Has had 3 beers total probably 4-5 days ago. Reports psychiatric history of schizophrenia. Had multiple family deaths and left him in an 8 month time frame 4-5 years ago. Has had hallucinations and delusions since. Last hospitalization was a couple years ago at [facility] in [place]. He was sent home on Invega and improved drastically. Medicaid eventually stopped paying for the medication and patient relapsed. PCP tried to start him on other medications that did not control his symptoms at all and patient refused to see a doctor until yesterday. Medications Medication Orders: Medications Ordered Category Date Time Status Acetaminophen [Tylenol] Meds 10/05/23 18:13 Active 650 mg PO Q4H PRN Clindamycin Phosphate/D5w [Cleocin 600 mg/50 ml D5w] Meds 10/06/23 10:00 Active 600 mg in 50 ml IV Q8HR Folic Acid Meds 10/06/23 09:00 Active 1 mg PO DAILY Lisinopril [Zestril] Meds 10/06/23 09:00 Active 10 mg PO DAILY Lorazepam [Ativan] Meds 10/05/23 18:13 Active 1 mg IVP Q2HR PRN Lorazepam [Ativan] Meds 10/05/23 18:13 Active 1 mg PO Q2HR PRN Multivitamin [Multivitamin Tablet] Meds 10/06/23 09:00 Active 1 tab PO DAILY Nicotine 21 mg [Nicoderm 21 mg] Meds 10/06/23 09:30 Active 1 patch TD DAILY Ondansetron HCl/Pf [Zofran 4 mg/2 ml] Meds 10/05/23 18:13 Active 4 mg IVP Q6H PRN Ringers Lactated Solution [Lactated Ringers] 1,000 ml Meds 10/05/23 22:00 Active IV 100 mls/hr Vitamin B-1 [Thiamine] Meds 10/06/23 09:00 Active 100 mg PO DAILY
[2023-10-06 12:26] LABS: ACETAMINOPHEN < 10.0 ug/ml (10-30); SALICYLATE < 1.00 mg/dL (0-20.0)
[2023-10-06] MEDS: TORADOL IVP PRN (13:32)
[2023-10-06] MEDS: ATIVAN IVP PRN (13:33)
[2023-10-06] MEDS: HYDRALAZINE HCL IVP PRN (17:06)
[2023-10-07] MEDS: HYDRALAZINE HCL IVP PRN ×3 (02:25→17:35)
[2023-10-07] MEDS: ATIVAN PO PRN (03:07)
[2023-10-07] MEDS: TORADOL IVP PRN ×4 (04:18→22:36)
[2023-10-07] MEDS: CLEOCIN 600 MG/50 ML D5W 600 MG/50 ML BAG IV SCH (04:47)
[2023-10-07 05:33] LABS: BASOPHILS % (AUTO) 0.2 % (0.0-3.0); EOSINOPHILS # (AUTO) 0.1 K/ul (0.0-0.7); HEMATOCRIT 31.5 % (42.0-52.0); HEMOGLOBIN 10.7 g/dl (14.0-18.0); IMMATURE GRANULOCYTE # (AUTO) 0.1 (0.0-1.0); IMMATURE GRANULOCYTE % (AUTO) 1.2 % (0.0-5.0); LYMPHOCYTES # (AUTO) 2.9 K/uL (0.60-3.4); LYMPHOCYTES % (AUTO) 32.1 (10.0-50.0); MEAN CORPUSCULAR HEMOGLOBIN 33.3 pg (27.0-31.0); MEAN CORPUSCULAR VOLUME 98.1 fl (80.0-94.0); MONOCYTES % (AUTO) 10.9 (0-10); NEUTROPHILS # (AUTO) 4.8 K/ul (2.0-6.9); NEUTROPHILS % (AUTO) 54.6 % (42.2-75.2); PLATELET COUNT 280 10^3/uL (140-440); RDW COEFFICIENT OF VARIATION 15.9 % (11.6-14.8); RED BLOOD COUNT 3.21 10^6/ul (4.70-6.10); WHITE BLOOD COUNT 8.87 K/ul (4.2-10.2)
[2023-10-07 05:43] LABS: ALANINE AMINOTRANSFERASE 155.4 U/L (0-50); ALBUMIN 3.22 g/dL (3.5-5.0); ALKALINE PHOSPHATASE 99.3 U/L (38-126); ASPARTATE AMINO TRANSFERASE 73.7 U/L (17-59); BILIRUBIN,TOTAL 0.54 mg/dL (0.2-1.3); BLOOD UREA NITROGEN 8.4 mg/dL (9-20); CALCIUM 8.8 mg/dL (8.4-10.2); CARBON DIOXIDE 26.9 mmol/L (22-30.0); CHLORIDE 104.3 mmol/L (98-107); CREATININE 0.48 mg/dL (0.60-1.10); MAGNESIUM 1.6 mg/dL (1.6-2.3); POTASSIUM 3.44 mmol/L (3.5-5.1); SODIUM 135.8 mmol/L (134.5-145); TOTAL PROTEIN 7.12 g/dL (6.3-8.2)
[2023-10-07] MEDS ORDERED: TRANDATE IVP ONE (06:14)
[2023-10-07] MEDS ORDERED: K-DUR PO ONE (06:24)
[2023-10-07] MEDS: NICODERM 21 MG TD SCH (08:18)
[2023-10-07] MEDS: FOLIC ACID PO SCH (08:19)
[2023-10-07] MEDS: MULTIVITAMIN TABLET PO SCH (08:19)
[2023-10-07] MEDS: ZYPREXA PO SCH ×2 (08:19→21:15)
[2023-10-07] MEDS: THIAMINE PO SCH (08:19)
[2023-10-07] MEDS: TYLENOL PO PRN (08:31)
[2023-10-07] MEDS ORDERED: ZESTRIL PO SCH (09:00)
[2023-10-07] MEDS ORDERED: VANCOMYCIN 1 GRAM/200 ML PREMIX 1 GM/200 ML BAG IV SCH (09:30)
--- NOTE | 2023-10-07 09:34 | PCM.PROG ---
Date/Time Seen Date Seen by Provider: 10/07/23 Time Seen by Provider: 08:45 Provider [facility] Chief Complaint Chief Complaint: ALCHOL ABUSE W/WITHDRAW,FORMICATION,ACUTE HYPOKALE Subjective Subjective: Continued pain to bilateral feet. Denies hallucinations at this moment. Continued delusions present during conv ersation. States he was at [place] but has no clue where he is now. Thought he was supposed to go somewhere with his mother today in [place] but isn't sure now. HR continues to be 110s-130s and DBP remaining in 100s despite BP medications. Patient appears anxious and reports feeling anxious. Denies pins and needles or any abnormal sensations. Denies feeling diaphoretic. No visible tremors. Objective Appearance: Positive No Apparent Distress and Other (deheveled) Chest/Lungs: Positive Symmetrical With Equal Breath Sounds, Clear to Auscultation Bilaterally and Good Air Movement all 4 Lung [place] Heart: Positive RRR and Pulses Normal GI/: Positive Soft, Nontender, Bowel Sounds Normal and No Distention Musculoskeletal: Positive Not Examined Neurological: Positive Sensation Intact, Motor intact, Reflexes Intact, Alert and Oriented Additional Findings: Delusions, denies hallucinations Vital Signs Vital Signs: Vital Signs: Last 24 Hours 10/06/23 10:00 10/06/23 10:00 10/06/23 12:00 Temperature Temperature Source Pulse Rate 120 H 129 H Pulse Rate [Apical] Respiratory Rate Blood Pressure 142/104 H Blood Pressure Mean Blood Pressure Location Blood Pressure Position O2 Sat by Pulse Oximetry Oxygen Delivery Method Room Air Telemetry Type Telemetry Monitoring Telemetry Heart Rate EKG WI Interval EKG QRS Interval Telemetry Strip Reading 10/06/23 13:00 10/06/23 13:26 10/06/23 14:00 Temperature 97.6 F Temperature Source Tympanic Pulse Rate 137 H 119 H Pulse Rate [Apical] Respiratory Rate 18 Blood Pressure 157/102 H Blood Pressure Mean 120 Blood Pressure Location Right Arm Blood Pressure Position Supine O2 Sat by Pulse Oximetry 96 Oxygen Delivery Method Room Air Telemetry Type Remote Telemetry Telemetry Monitoring Continues Telemetry Heart Rate 136 H EKG WI Interval 0.12 EKG QRS Interval 0.08 Telemetry Strip Reading SINUS TACH 10/06/23 16:00 10/06/23 17:01 10/06/23 17:57 Temperature 98.6 F Temperature Source Temporal Artery Scan Pulse Rate 118 H 118 H 16 L Pulse Rate [Apical] Respiratory Rate 18 118 H Blood Pressure 174/115 H 141/96 H Blood Pressure Mean 134 111 Blood Pressure Location Left Arm Left Arm Blood Pressure Position Supine Supine O2 Sat by Pulse Oximetry 97 96 Oxygen Delivery Method Room Air Room Air Telemetry Type Telemetry Monitoring Telemetry Heart Rate EKG WI Interval EKG QRS Interval Telemetry Strip [place] 10/06/23 18:00 10/06/23 19:00 10/06/23 20:00 Temperature Temperature Source Pulse Rate 122 H 124 H Pulse Rate [Apical] Respiratory Rate 16 16 Blood Pressure 154/102 H Blood Pressure Mean Blood Pressure Location Blood Pressure Position O2 Sat by Pulse Oximetry Oxygen Delivery Method Telemetry Type Remote Telemetry Telemetry Monitoring Continues Telemetry Heart Rate 126 H EKG WI Interval 0.19 EKG QRS Interval 0.[address] 10/06/23 20:00 10/06/23 22:00 10/06/23 22:00 Temperature 97.9 F Temperature Source Temporal Artery Scan Pulse Rate 127 H 127 H Pulse Rate [Apical] 124 H Respiratory Rate 16 16 16 Blood Pressure 148/99 H Blood Pressure Mean 115 Blood Pressure Location Left Arm Blood Pressure Position Supine O2 Sat by Pulse Oximetry 98 Oxygen Delivery Method Room Air Room Air Telemetry Type Telemetry Monitoring Telemetry Heart Rate EKG WI Interval EKG QRS Interval Telemetry Strip [place] 10/07/23 00:00 10/07/23 01:00 10/07/23 02:00 Temperature 97.5 F L Temperature Source Oral Pulse Rate 128 H 137 H Pulse Rate [Apical] Respiratory Rate 20 20 Blood Pressure 152/109 H Blood Pressure Mean 123 Blood Pressure Location Right Arm Blood Pressure Position Supine O2 Sat by Pulse Oximetry 97 Oxygen Delivery Method Room Air Telemetry Type Remote Telemetry Telemetry Monitoring Continues Telemetry Heart Rate 122 H EKG WI Interval 0.20 EKG QRS Interval 0.[address] 10/07/23 02:00 10/07/23 04:00 10/07/23 05:59 Temperature 97.5 F L 97.6 F Temperature Source Temporal Artery Scan Pulse Rate 137 H 130 H 127 H Pulse Rate [Apical] Respiratory Rate 20 20 20 Blood Pressure 152/109 H 150/102 H Blood Pressure Mean 118 Blood Pressure Location Right Arm Blood Pressure Position Supine O2 Sat by Pulse Oximetry 97 Oxygen Delivery Method Room Air Telemetry Type Telemetry Monitoring Telemetry Heart Rate EKG WI Interval EKG QRS Interval Telemetry Strip Reading 10/07/23 06:00 10/07/23 07:39 10/07/23 09:13 Temperature 97.6 F 97.8 F Temperature Source Temporal Artery Scan Pulse Rate 127 H 128 H Pulse Rate [Apical] 108 H Respiratory Rate 20 16 18 Blood Pressure 150/102 H 145/101 H Blood Pressure Mean 115 Blood Pressure Location Right Arm Blood Pressure Position Sitting O2 Sat by Pulse Oximetry 98 Oxygen Delivery Method Room Air Room Air Telemetry Type Telemetry Monitoring Telemetry Heart Rate EKG WI Interval EKG QRS Interval Telemetry Strip Reading Lab Results Lab Results: Lab Results: Last 24 Hours 10/07/23 10/06/23 10/06/23 05:24 05:51 05:50 WBC 8.87 RBC 3.21 L Hgb 10.7 L Hct 31.5 L MCV 98.1 H MCH 33.3 H MCHC 34.0 RDW Coeff of Juanito 15.9 H Plt Count 280 Immature Gran % (Auto) 1.2 Neut % (Auto) 54.6 Lymph % (Auto) 32.1 [place] % (Auto) 10.9 H Eos % (Auto) 1.0 Baso % (Auto) 0.2 Neut # (Auto) 4.8 Lymph # (Auto) 2.9 [place] # (Auto) 1.0 Eos # (Auto) 0.1 Baso # (Auto) 0.0 Immature Gran # (Auto) 0.1 Sodium 135.8 Potassium 3.44 L Chloride 104.3 Carbon Dioxide 26.9 Anion Gap 8.04 BUN 8.4 L Creatinine 0.48 L Estimated GFR (MDRD) 196.00 BUN/Creatinine Ratio 17.50 Glucose 114.0 H Calcium 8.80 Magnesium 1.60 Total Bilirubin 0.54 AST 73.7 H D ALT 155.4 H D Alkaline Phosphatase 99.3 C-Reactive Prot, Quant 8 Total Protein 7.12 Albumin 3.22 L Globulin 3.90 Albumin/Globulin Ratio 0.82 Salicylate Level mg/dL < 1.00 Acetaminophen < 10.0 L Additional Comments Additional Comments: I have independently reviewed and interpreted the labs/EKGs/imaging ordered during this hospital stay. I have reviewed outside records that are available in our EMR that pertain to medical stay including imaging/notes/labs from previous visits. Active Medications Active Medications: Medications Generic Name Dose Route Start Last Admin Trade Name Freq PRN Reason Stop Dose Admin Acetaminophen 650 mg 10/05/23 18:13 10/07/23 08:31 Acetaminophen 325 Mg Tablet PO 650 mg Q4H PRN Administration Mild Pain Folic Acid 1 mg 10/06/23 09:00 10/07/23 08:19 Folic Acid 1 Mg Tablet PO 1 mg DAILY MARIA C Administration Hydralazine HCl 10 mg 10/06/23 15:27 10/07/23 02:25 Hydralazine Hcl 20 Mg/Ml Sdv IVP 10 mg Q6H PRN Administration Hypertension CEFEPIME 2 GM/D5W 2 gm in 50 mls @ 100 mls/hr 10/07/23 13:00 Maxipime 2 Gm/50 Ml D5w IV 10/10/23 12:59 Q8HR MARIA C VANCOMYCIN/WATER FOR INJ (PEG) 1.25 gm in 250 mls @ 250 mls/hr 10/07/23 13:00 Vancomycin 1.25 Gm/250 Ml Bag IV 10/10/23 12:59 Q8HR MARIA C Ketorolac Tromethamine 15 mg 10/06/23 12:23 10/07/23 04:18 Ketorolac Tromethamine 15 Mg/Ml Vial IVP 10/10/23 12:23 15 mg Q6HR PRN Administration Pain Lisinopril 20 mg 10/07/23 09:00 10/07/23 08:18 Lisinopril 10 Mg Tablet PO 20 mg BID MARIA C Administration Lorazepam 1 mg 10/05/23 18:13 10/07/23 03:07 Lorazepam 1 Mg Tablet PO 1 mg Q2HR PRN Administration Withdrawal Lorazepam 1 mg 10/05/23 18:13 10/06/23 13:33 Lorazepam Inj 2 Mg/Ml Vial IVP 1 mg Q2HR PRN Administration Withdrawal Multivitamins 1 tab 10/06/23 09:00 10/07/23 08:19 Multivitamin 1 Tab PO 1 tab DAILY MARIA C Administration Nicotine 1 patch 10/06/23 09:30 10/07/23 08:18 Nicotine 21 Mg Patch.Td24 TD 1 patch DAILY MARIA C Administration Olanzapine 5 mg 10/07/23 09:00 10/07/23 08:19 Olanzapine 2.5 Mg Tablet PO 5 mg BID MARIA C Administration Ondansetron HCl 4 mg 10/05/23 18:13 Ondansetron Hcl/Pf 4 Mg/2 Ml Sdv IVP Q6H PRN Nausea / Vomiting Thiamine HCl 100 mg 10/06/23 09:00 10/07/23 08:19 Vitamin B-1 100 Mg Tablet PO 100 mg DAILY MARIA C Administration Plan Plan: 1. Cellulitis to bilateral feet - Unchanged, no open wounds to culture, CRP ordered, MRSA swab ordered, switching to vanc and cefepime due to no response with clinda 2. Alcohol Withdrawal - Resolved, d/c CIWA, no active signs of withdrawal, #3 present. monitor 3. Schizophrenia with Command Hallucinations - [facility] evaluated and is working on psychiatric placement for when patient becomes medically stable, suicide precautions, initiating zyprexa today 4. Tobacco use - nicotine patch daily 5. Hypokalemia - Replaced. Monitor 6. Elevated LFTS - chronic alcohol abuse, trending down, no pain or symptoms, monitor 7. Hypertension - uncontrolled, increased lisinopril dosage today, 10 mg dose of labetolol given, likely due to anxiety and schizophrenia - adding medications to control DVT Prophylaxis: Up with assist Review Statement Review Statement: I have personally discussed and reviewed the patient's visit/currently labs/imaging/decision making with Dr. Barrera, my supervising attending. Greater that 50 minutes spent with patient, 50% of the time spent with this patient was devoted to counseling and coordination of care.
[2023-10-07] MEDS: ATIVAN IVP PRN (10:45)
[2023-10-07] MEDS ORDERED: INVEGA SUSTENNA IM ONE (11:29)
[2023-10-07] MEDS: MAXIPIME 2 GM/50 ML D5W 2 GM/50 ML BAG IV SCH ×2 (12:36→21:52)
[2023-10-07] MEDS: VANCOMYCIN 1.25 GM/250 ML BAG 1.25 GM/250 ML BAG IV SCH ×2 (13:24→20:54)
[2023-10-07] MEDS ORDERED: HALDOL IVP ONE (15:05)
[2023-10-07] MEDS ORDERED: LOPRESSOR IVP ONE (20:16)
[2023-10-07] MEDS ORDERED: TRANDATE IVP PRN (21:02)
[2023-10-07] MEDS ORDERED: VALIUM SYRINGE IVP ONE (21:06)
[2023-10-07] MEDS: ATIVAN PO SCH (21:15)
[2023-10-07] MEDS ORDERED: VALIUM SYRINGE IVP PRN (21:37)
[2023-10-08] MEDS: LOPRESSOR PO SCH ×4 (00:03→18:12)
[2023-10-08] MEDS: VANCOMYCIN 1.25 GM/250 ML BAG 1.25 GM/250 ML BAG IV SCH ×3 (04:45→20:45)
[2023-10-08] MEDS: TORADOL IVP PRN ×2 (05:38→12:16)
[2023-10-08] MEDS: MAXIPIME 2 GM/50 ML D5W 2 GM/50 ML BAG IV SCH ×3 (05:52→21:00)
[2023-10-08 06:00] LABS: BASOPHILS % (AUTO) 0.1 % (0.0-3.0); EOSINOPHILS # (AUTO) 0.2 K/ul (0.0-0.7); EOSINOPHILS % (AUTO) 1.8 % (0.0-7.0); HEMATOCRIT 33.1 % (42.0-52.0); HEMOGLOBIN 10.9 g/dl (14.0-18.0); IMMATURE GRANULOCYTE # (AUTO) 0.1 (0.0-1.0); IMMATURE GRANULOCYTE % (AUTO) 1.1 % (0.0-5.0); LYMPHOCYTES # (AUTO) 3.1 K/uL (0.60-3.4); LYMPHOCYTES % (AUTO) 35.3 (10.0-50.0); MEAN CORPUSCULAR HEMOGLOBIN 33.5 pg (27.0-31.0); MEAN CORPUSCULAR HGB CONC 32.9 (31.8-35.4); MEAN CORPUSCULAR VOLUME 101.8 fl (80.0-94.0); MONOCYTES # (AUTO) 0.9 K/uL (0.4-2.0); MONOCYTES % (AUTO) 9.6 (0-10); NEUTROPHILS # (AUTO) 4.6 K/ul (2.0-6.9); NEUTROPHILS % (AUTO) 52.1 % (42.2-75.2); PLATELET COUNT 295 10^3/uL (140-440); RDW COEFFICIENT OF VARIATION 16.7 % (11.6-14.8); RED BLOOD COUNT 3.25 10^6/ul (4.70-6.10); WHITE BLOOD COUNT 8.82 K/ul (4.2-10.2)
[2023-10-08 06:20] LABS: ALANINE AMINOTRANSFERASE 112.9 U/L (0-50); ALBUMIN 3.36 g/dL (3.5-5.0); ALKALINE PHOSPHATASE 93.2 U/L (38-126); ASPARTATE AMINO TRANSFERASE 58.7 U/L (17-59); BILIRUBIN,TOTAL 0.45 mg/dL (0.2-1.3); BLOOD UREA NITROGEN 9.2 mg/dL (9-20); CALCIUM 8.88 mg/dL (8.4-10.2); CARBON DIOXIDE 22.2 mmol/L (22-30.0); CHLORIDE 105.8 mmol/L (98-107); CREATININE 0.52 mg/dL (0.60-1.10); GLUCOSE 132.3 mg/dL (74-106); POTASSIUM 4.13 mmol/L (3.5-5.1); SODIUM 135.2 mmol/L (134.5-145); TOTAL PROTEIN 7.31 g/dL (6.3-8.2)
[2023-10-08] MEDS: FOLIC ACID PO SCH (08:23)
[2023-10-08] MEDS: ATIVAN PO SCH ×2 (08:23→21:00)
[2023-10-08] MEDS: THIAMINE PO SCH (08:24)
[2023-10-08] MEDS: MULTIVITAMIN TABLET PO SCH (08:24)
[2023-10-08] MEDS: ZYPREXA PO SCH (08:25)
[2023-10-08] MEDS: NICODERM 21 MG TD SCH (08:28)
[2023-10-08] MEDS ORDERED: ZYPREXA IM ONE (08:35)
[2023-10-08] MEDS ORDERED: CARDIZEM INJ IVP ONE (10:04)
--- NOTE | 2023-10-08 10:29 | PCM.PROG ---
Date/Time Seen Date Seen by Provider: 10/08/23 Time Seen by Provider: 09:00 Provider Provider[facility] STEPHANI [facility] Chief Complaint Chief Complaint: ALCHOL ABUSE W/WITHDRAW,FORMICATION,ACUTE HYPOKALE Subjective Subjective: Continued tachycardia in 130s-140s and DBP >100 despite medications. Patient is still highly anxious with hallucinations/delusions present. Objective Appearance: Positive No Apparent Distress Chest/Lungs: Positive Symmetrical With Equal Breath Sounds, Clear to Auscultation Bilaterally and Good Air Movement all 4 Lung [place] Heart: Positive RRR and Pulses Normal GI/: Positive Soft, Nontender, Bowel Sounds Normal and No Distention Musculoskeletal: Positive Other (Patient refusing to put feet on the floor to ambulate to bedside commode. Erythema and swelling improving.) Neurological: Positive Sensation Intact, Motor intact, Alert and Oriented Additional Findings: Hallucinations and delusions present Vital Signs Vital Signs: Vital Signs: Last 24 Hours 10/07/23 11:00 10/07/23 11:35 10/07/23 11:50 Temperature Temperature Source Pulse Rate Pulse Rate [Apical] Respiratory Rate Blood Pressure 148/110 H 138/92 H Blood Pressure Mean 122 107 Blood Pressure Location Right Arm Blood Pressure Position Sitting O2 Sat by Pulse Oximetry Oxygen Delivery Method Room Air Room Air Telemetry Type Remote Telemetry Telemetry Monitoring Continues Telemetry Heart Rate 135 H EKG LA Interval 0.14 EKG QRS Interval 0.09 Telemetry Strip Reading Tachycardia 10/07/23 12:20 10/07/23 13:55 10/07/23 14:00 Temperature 97.2 F L Temperature Source Temporal Artery Scan Pulse Rate 130 H Pulse Rate [Apical] Respiratory Rate 16 Blood Pressure 141/92 H Blood Pressure Mean 108 Blood Pressure Location Left Arm Blood Pressure Position O2 Sat by Pulse Oximetry 97 Oxygen Delivery Method Room Air Telemetry Type Remote Telemetry Remote Telemetry Telemetry Monitoring Continues Continues Telemetry Heart Rate 151 H 136 H EKG LA Interval 0.14 EKG QRS Interval 0.10 Telemetry Strip Reading Tachycardia, patient had started to get anxious prior tachycardia 10/07/23 17:30 10/07/23 19:00 10/07/23 20:00 Temperature 97.1 F L Temperature Source Temporal Artery Scan Pulse Rate 124 H Pulse Rate [Apical] 130 H Respiratory Rate 24 H 16 Blood Pressure 144/102 H Blood Pressure Mean 116 Blood Pressure Location Right Arm Blood Pressure Position Supine O2 Sat by Pulse Oximetry 97 Oxygen Delivery Method Room Air Room Air Telemetry Type Remote Telemetry Telemetry Monitoring Continues Telemetry Heart Rate 130 H EKG LA Interval 0.15 EKG QRS Interval 0.[address] 10/07/23 20:53 10/08/23 01:00 10/08/23 02:00 Temperature 97.4 F L 98.3 F Temperature Source Temporal Artery Scan Temporal Artery Scan Pulse Rate 127 H 126 H Pulse Rate [Apical] Respiratory Rate 25 H 26 H Blood Pressure 160/100 H 165/120 H Blood Pressure Mean 120 135 Blood Pressure Location Left Arm Right Arm Blood Pressure Position Supine Sitting O2 Sat by Pulse Oximetry 99 99 Oxygen Delivery Method Room Air Room Air Telemetry Type Remote Telemetry Telemetry Monitoring Continues Telemetry Heart Rate 129 H EKG LA Interval 0.15 EKG QRS Interval 0.[address] 10/08/23 05:57 10/08/23 07:00 10/08/23 08:00 Temperature 98.8 F Temperature Source Temporal Artery Scan Pulse Rate 125 H Pulse Rate [Apical] 116 H Respiratory Rate 23 H 18 Blood Pressure 151/113 H Blood Pressure Mean 125 Blood Pressure Location Left Arm Blood Pressure Position Supine O2 Sat by Pulse Oximetry 99 Oxygen Delivery Method Room Air Room Air Telemetry Type Remote Telemetry Telemetry Monitoring Continues Telemetry Heart Rate 119 H EKG LA Interval 0.16 EKG QRS Interval 0.[address] 10/08/23 10:00 Temperature 97.8 F Temperature Source Temporal Artery Scan Pulse Rate 125 H Pulse Rate [Apical] Respiratory Rate 28 H Blood Pressure 134/86 Blood Pressure Mean 102 Blood Pressure Location Right Arm Blood Pressure Position O2 Sat by Pulse Oximetry 99 Oxygen Delivery Method Room Air Telemetry Type Telemetry Monitoring Telemetry Heart Rate EKG LA Interval EKG QRS Interval Telemetry Strip Reading Lab Results Lab Results: Lab Results: Last 24 Hours 10/08/23 05:33 WBC 8.82 RBC 3.25 L Hgb 10.9 L Hct 33.1 L MCV 101.8 H MCH 33.5 H MCHC 32.9 RDW Coeff of Juanito 16.7 H Plt Count 295 Immature Gran % (Auto) 1.1 Neut % (Auto) 52.1 Lymph % (Auto) 35.3 [place] % (Auto) 9.6 Eos % (Auto) 1.8 Baso % (Auto) 0.1 Neut # (Auto) 4.6 Lymph # (Auto) 3.1 [place] # (Auto) 0.9 Eos # (Auto) 0.2 Baso # (Auto) 0.0 Immature Gran # (Auto) 0.1 Sodium 135.2 Potassium 4.13 Chloride 105.8 Carbon Dioxide 22.2 Anion Gap 11.33 BUN 9.2 Creatinine 0.52 L Estimated GFR (MDRD) 179.00 BUN/Creatinine Ratio 17.69 Glucose 132.3 H Calcium 8.88 Total Bilirubin 0.45 AST 58.7 ALT 112.9 H D Alkaline Phosphatase 93.2 Total Protein 7.31 Albumin 3.36 L Globulin 3.95 Albumin/Globulin Ratio 0.85 Additional Comments Additional Comments: I have independently reviewed and interpreted the labs/EKGs/imaging ordered during this hospital stay. I have reviewed outside records that are available in our EMR that pertain to medical stay including imaging/notes/labs from previous visits. Active Medications Active Medications: Medications Generic Name Dose Route Start Last Admin Trade Name Freq PRN Reason Stop Dose Admin Acetaminophen 650 mg 10/05/23 18:13 10/07/23 08:31 Acetaminophen 325 Mg Tablet PO 650 mg Q4H PRN Administration Mild Pain Diazepam 4 mg 10/07/23 21:37 10/08/23 03:01 Diazepam 10 Mg/2 Ml Disp.Syrin IVP 4 mg ONCE PRN Administration Agitation Folic Acid 1 mg 10/06/23 09:00 10/08/23 08:23 Folic Acid 1 Mg Tablet PO 1 mg DAILY MARIA C Administration Hydralazine HCl 10 mg 10/06/23 15:27 10/07/23 17:35 Hydralazine Hcl 20 Mg/Ml Sdv IVP 10 mg Q6H PRN Administration Hypertension CEFEPIME 2 GM/D5W 2 gm in 50 mls @ 100 mls/hr 10/07/23 13:00 10/08/23 05:52 Maxipime 2 Gm/50 Ml D5w IV 10/10/23 12:59 100 mls/hr Q8HR MARIA C Administration VANCOMYCIN/WATER FOR INJ (PEG) 1.25 gm in 250 mls @ 250 mls/hr 10/07/23 13:00 10/08/23 04:45 Vancomycin 1.25 Gm/250 Ml Bag IV 10/10/23 12:59 250 mls/hr Q8HR MARIA C Administration Ketorolac Tromethamine 15 mg 10/06/23 12:23 10/08/23 05:38 Ketorolac Tromethamine 15 Mg/Ml Vial IVP 10/10/23 12:23 15 mg Q6HR PRN Administration Pain Labetalol HCl 10 mg 10/07/23 21:02 Labetalol Hcl 20 Mg/4 Ml Disp.Syrin IVP Q4H PRN Hypertension Lorazepam 2 mg 10/07/23 09:44 10/07/23 10:45 Lorazepam Inj 2 Mg/Ml Vial IVP 2 mg Q4H PRN Administration Anxiety Lorazepam 1 mg 10/07/23 21:00 10/08/23 08:23 Lorazepam 1 Mg Tablet PO 1 mg BID MARIA C Administration Metoprolol Tartrate 25 mg 10/08/23 00:00 10/08/23 05:22 Metoprolol Tartrate 25 Mg Tablet PO 25 mg Q6HR MARIA C Administration Multivitamins 1 tab 10/06/23 09:00 10/08/23 08:24 Multivitamin 1 Tab PO 1 tab DAILY MARIA C Administration Nicotine 1 patch 10/06/23 09:30 10/08/23 08:28 Nicotine 21 Mg Patch.Td24 TD 1 patch DAILY MARIA C Administration Olanzapine 5 mg 10/07/23 09:00 10/08/23 08:25 Olanzapine 2.5 Mg Tablet PO 5 mg BID MARIA C Administration Ondansetron HCl 4 mg 10/05/23 18:13 Ondansetron Hcl/Pf 4 Mg/2 Ml Sdv IVP Q6H PRN Nausea / Vomiting Thiamine HCl 100 mg 10/06/23 09:00 10/08/23 08:24 Vitamin B-1 100 Mg Tablet PO 100 mg DAILY MARIA C Administration Plan Plan: 1. Cellulitis to bilateral feet - Improving, no open wounds to culture, CRP ordered, MRSA swab negative, vanc/cefepime 2. Right segmental lower lobe PE - lovenox 1mg/kg, venous US bilateral legs tomorrow to r/o DVT, transition to eliquis for discharge 3. Schizophrenia with Command Hallucinations - [facility] evaluated and is working on psychiatric placement for when patient becomes medically stable, suicide precautions, zyprexa and ativan ordered PO, given valium, haldol, and zyprexa IM with no response. 4. Tobacco use - nicotine patch daily 5. Hypokalemia - Replaced. Monitor 6. Elevated LFTS - chronic alcohol abuse, trending down, no pain or symptoms, monitor 7. Hypertension secondary to schizoprenia/anxiety - uncontrolled, stopped lisinopril due to no response, labetalol and hydralazine ordered prn 8. Sinus Tachycardia - no response to metoprolol IV. metoprolol 25 mg PO Q6H ordered. 10 mg cardizem given IV with no response. CTA positive for PE 9. Alcohol Withdrawal - Resolved, d/c CIWA, no active signs of withdrawal, #3 p resent. monitor DVT Prophylaxis: Up with assist Review Statement Review Statement: I have personally discussed and reviewed the patient's visit/currently labs/imaging/decision making with Dr. Barrera, my supervising attending. Greater that 50 minutes spent with patient, 50% of the time spent with this patient was devoted to counseling and coordination of care.
--- NOTE | 2023-10-08 12:57 | CT ---
EXAMINATION: CT ANGIOGRAM OF THE CHEST, PULMONARY EMBOLISM PROTOCOL. HISTORY: Tachycardia. COMPARISON: None. TECHNIQUE: CTA acquisition of the chest from the thoracic inlet to the upper abdomen following IV co ntrast administration timed to filling of the pulmonary artery. IV Contrast: 75 ml Omnipaque 350. 3 D/MIP/VR images were utilized. CT Dose Reduction Techniques Employed: Yes FINDINGS: PULMONARY ARTERIES: -Bolus timing: Suboptimal with decreased relative enhancement of the pulmonary artery relative to th e aorta. -Pulmonary embolus: Despite limitations, possible segmental pulmonary emboli to the right lower lobe best seen on axial images number 137 and 139. THYROID: Normal given technique. AXILLARY OR SUPRACLAVICULAR LYMPHADENOPATHY: None. ATHEROSCLEROSIS: No significant calcific atherosclerosis. AORTA AND MAIN PULMONARY ARTERY: Normal in size. HEART: Normal in size. Trace pericardial fluid. MEDIASTINUM: No lymphadenopathy. THORACIC ESOPAGUS: No significant abnormality. PLEURAL EFFUSION: None LUNGS: Emphysematous changes worst in the right apex. Scattered atelectatic changes worst adjacent the right hemidiaphragm Central airways patent. UPPER ABDOMEN: Possible hepatic steatosis. Focal sparing adjacent the gallbladder. Borderline sple nomegaly. BODY WALL SOFT TISSUES: No significant abnormality. OSSEOUS STRUCTURES: Degenerative changes in the spine. Subacute to chronic left third rib fracture at its junction with the costochondral cartilage. IMPRESSION: Suboptimal bolus timing evaluation. Despite this, possible segmental pulmonary embolus to the right lower lobe. Emphysematous changes with scattered atelectatic changes worst adjacent the right hemidiaphragm. No other significant abnormality in the thorax. Hepatic steatosis with borderline splenomegaly. Subacute to chronic anterior left third rib fracture at the junction with the costochondral cartilage . Critical results, pulmonary embolus, communicated to the ordering provider, Hernan Arguello, at 12:[address] scans are performed using dose optimization techniques as appropriate to the performed exam an d include at least one of the following: Automated exposure control, adjustment of the mA and/or kV according t o size, and the use of iterative reconstruction technique.
[2023-10-08] MEDS: LOVENOX SUBCUT SCH ×2 (13:19→21:00)
[2023-10-08] MEDS ORDERED: NORVASC PO ONE (14:36)
[2023-10-08] MEDS ORDERED: LOPRESSOR PO SCH (21:00)
[2023-10-08] MEDS: ATIVAN IVP PRN (21:04)
[2023-10-08] MEDS: GEODON IM PRN (22:54)
[2023-10-09] MEDS: ZYPREXA PO SCH ×3 (01:05→21:00)
[2023-10-09] MEDS: VANCOMYCIN 1.25 GM/250 ML BAG 1.25 GM/250 ML BAG IV SCH (04:38)
[2023-10-09 05:13] LABS: BASOPHILS % (AUTO) 0.2 % (0.0-3.0); EOSINOPHILS # (AUTO) 0.1 K/ul (0.0-0.7); EOSINOPHILS % (AUTO) 1.4 % (0.0-7.0); HEMATOCRIT 29.6 % (42.0-52.0); HEMOGLOBIN 9.8 g/dl (14.0-18.0); IMMATURE GRANULOCYTE # (AUTO) 0.1 (0.0-1.0); IMMATURE GRANULOCYTE % (AUTO) 0.8 % (0.0-5.0); LYMPHOCYTES # (AUTO) 2.9 K/uL (0.60-3.4); LYMPHOCYTES % (AUTO) 31.4 (10.0-50.0); MEAN CORPUSCULAR HEMOGLOBIN 33.6 pg (27.0-31.0); MEAN CORPUSCULAR HGB CONC 33.1 (31.8-35.4); MEAN CORPUSCULAR VOLUME 101.4 fl (80.0-94.0); MONOCYTES % (AUTO) 11.4 (0-10); NEUTROPHILS % (AUTO) 54.8 % (42.2-75.2); PLATELET COUNT 253 10^3/uL (140-440); RDW COEFFICIENT OF VARIATION 16.9 % (11.6-14.8); RED BLOOD COUNT 2.92 10^6/ul (4.70-6.10); WHITE BLOOD COUNT 9.13 K/ul (4.2-10.2)
[2023-10-09 05:31] LABS: ALANINE AMINOTRANSFERASE 101.4 U/L (0-50); ALBUMIN 3.53 g/dL (3.5-5.0); ALKALINE PHOSPHATASE 91.9 U/L (38-126); ASPARTATE AMINO TRANSFERASE 49.4 U/L (17-59); BILIRUBIN,TOTAL 0.6 mg/dL (0.2-1.3); BLOOD UREA NITROGEN 11.8 mg/dL (9-20); CALCIUM 9.65 mg/dL (8.4-10.2); CARBON DIOXIDE 24.1 mmol/L (22-30.0); CHLORIDE 109.6 mmol/L (98-107); CREATININE 0.48 mg/dL (0.60-1.10); GLUCOSE 103.5 mg/dL (74-106); POTASSIUM 4.21 mmol/L (3.5-5.1); SODIUM 137.3 mmol/L (134.5-145); TOTAL PROTEIN 7.58 g/dL (6.3-8.2)
[2023-10-09] MEDS: MAXIPIME 2 GM/50 ML D5W 2 GM/50 ML BAG IV SCH (05:39)
[2023-10-09] MEDS: LOPRESSOR PO SCH ×4 (06:37→17:05)
[2023-10-09] MEDS: NICODERM 21 MG TD SCH (08:58)
[2023-10-09] MEDS: ATIVAN PO SCH ×2 (08:59→21:00)
[2023-10-09] MEDS: LOVENOX SUBCUT SCH ×2 (08:59→21:00)
[2023-10-09] MEDS: FOLIC ACID PO SCH (08:59)
[2023-10-09] MEDS: MULTIVITAMIN TABLET PO SCH (08:59)
[2023-10-09] MEDS: THIAMINE PO SCH (08:59)
--- NOTE | 2023-10-09 10:39 | US ---
EXAM: BILATERAL LOWER EXTREMITY DEEP VENOUS ULTRASOUND WITH DOPPLER IMAGING HISTORY: Bilateral leg pain and swelling. TECHNIQUE: Jacobs-scale ultrasound with compression maneuvers and color and spectral Doppler ultrasound at rest and with augmentation of the veins was performed. Images were obtained and stored in a Nu[employer] archive. COMPARISON: None. FINDINGS: RIGHT LOWER EXTREMITY: Common Femoral Vein: Normal compression. Normal flow on color Doppler images. Normal response to au gmentation. Deep Femoral Vein: Normal compression. Normal flow on color Doppler images. Normal response to augm entation. Femoral Vein: Normal compression. Normal flow on color Doppler images. Normal response to augmentat ion. Popliteal Vein: Normal compression. Normal flow on color Doppler images. Normal response to augment ation. Peroneal Vein: Normal compression. Normal flow on color Doppler images. Posterior Tibial Vein: Normal compression. Normal flow on color Doppler images. Anterior Tibial Vein: Normal compression. Normal flow on color Doppler images. Greater Saphenous Vein (Superficial): Normal compression. Normal flow on color Doppler images. Other: No reflux. LEFT LOWER EXTREMITY: Common Femoral Vein: Normal compression. Normal flow on color Doppler images. Normal response to au gmentation. Deep Femoral Vein: Normal compression. Normal flow on color Doppler images. Normal response to augm entation. Femoral Vein: Normal compression. Normal flow on color Doppler images. Normal response to augmentat ion. Popliteal Vein: Normal compression. Normal flow on color Doppler images. Normal response to augment ation. Peroneal Vein: Normal compression. Normal flow on color Doppler images. Posterior Tibial Vein: Normal compression. Normal flow on color Doppler images. Anterior Tibial Vein: Normal compression. Normal flow on color Doppler images. Greater Saphenous Vein (Superficial): Normal compression. Normal flow on color Doppler images. Other: No reflux. IMPRESSION: 1. No deep venous thrombosis (DVT) in the right or left lower extremity. 2. No superficial venous thrombosis (SVT) in the right or left lower extremity. *Note: Anticoagulation for SVT can be considered only if greater than or equal to 5 cm in length. ([email or web address] [id number])
--- NOTE | 2023-10-09 10:52 | PCM.PROG ---
Date/Time Seen Date Seen by Provider: 10/09/23 Time Seen by Provider: 09:00 Provider Provider: MIAH STALLINGS PA-C, [facility] Chief Complaint Chief Complaint: ALCHOL ABUSE W/WITHDRAW,FORMICATION,ACUTE HYPOKALE Subjective Subjective: Patient sitting in bed this morning. Per nursing staff he has not rested at all. He remains anxious appearing. He is oriented to self and time. He thinks we're in a double wide trailer. He's surprised to hear he is in a hospital. He states his feet are feeling better but he hasn't ambulated. He refused his lovenox last night but was agreeable to it this morning. We discussed the importance of his blood thinner for his PE. He is difficult to keep on task in conversation. Objective Appearance: Positive No Apparent Distress Chest/Lungs: Positive Symmetrical With Equal Breath Sounds, Clear to Auscultation Bilaterally and Good Air Movement all 4 Lung [place] Heart: Positive RRR, Pulses Normal and Tachycardia GI/: Positive Soft, Nontender, Bowel Sounds Normal and No Distention Musculoskeletal: Positive Other (Colton feet - Erythema resolved and swelling improving.) Neurological: Positive Cranial Nerves Intact, Alert and Oriented (to self and time. ) Additional Findings: Hallucinations and delusions present. Easily gets distracted. Flight of ideas. Anxious. Vital Signs Vital Signs: Vital Signs: Last 24 Hours 10/08/23 13:00 10/08/23 14:00 10/08/23 18:00 Temperature 98.0 F 98.7 F Temperature Source Temporal Artery Scan Temporal Artery Scan Pulse Rate 123 H 124 H Respiratory Rate 26 H 26 H Blood Pressure 146/103 H 152/104 H Blood Pressure Mean 117 120 Blood Pressure Location Left Arm Right Arm Blood Pressure Position Supine O2 Sat by Pulse Oximetry 96 97 Oxygen Delivery Method Room Air Room Air Oxygen Flow Rate Telemetry Type Remote Telemetry Telemetry Monitoring Continues Telemetry Heart Rate 130 H EKG IA Interval 0.16 EKG QRS Interval 0.08 Telemetry Strip Reading SINUS TACH 10/08/23 19:00 10/08/23 20:00 10/08/23 21:18 Temperature 98.2 F Temperature Source Temporal Artery Scan Pulse Rate 128 H Respiratory Rate 23 H Blood Pressure 142/102 H Blood Pressure Mean 115 Blood Pressure Location Left Arm Blood Pressure Position Supine O2 Sat by Pulse Oximetry 95 Oxygen Delivery Method Room Air Room Air Oxygen Flow Rate Telemetry Type Remote Telemetry Telemetry Monitoring Continues Telemetry Heart Rate 118 H EKG IA Interval 0.14 EKG QRS Interval 0.[address] 10/09/23 00:18 10/09/23 01:00 10/09/23 05:14 Temperature Temperature Source Pulse Rate Respiratory Rate Blood Pressure Blood Pressure Mean Blood Pressure Location Blood Pressure Position O2 Sat by Pulse Oximetry 99 98 Oxygen Delivery Method Nasal Cannula Room Air Oxygen Flow Rate 2 Telemetry Type Telemetry Monitoring Telemetry Heart Rate EKG IA Interval EKG QRS Interval Telemetry Strip Reading REFUSES TO LEAVE ON 10/09/23 05:57 10/09/23 07:00 10/09/23 08:00 Temperature 97.5 F L Temperature Source Temporal Artery Scan Pulse Rate 129 H Respiratory Rate 20 Blood Pressure 139/93 H Blood Pressure Mean 108 Blood Pressure Location Right Arm Blood Pressure Position Supine O2 Sat by Pulse Oximetry 96 Oxygen Delivery Method Room Air Room Air Oxygen Flow Rate Telemetry Type Remote Telemetry Telemetry Monitoring Continues Telemetry Heart Rate 121 H EKG IA Interval 0.15 EKG QRS Interval 0.05 L Telemetry Strip Reading SR/ST 10/09/23 10:00 Temperature 97.7 F Temperature Source Oral Pulse Rate 132 H Respiratory Rate 16 Blood Pressure 136/88 Blood Pressure Mean 104 Blood Pressure Location Left Arm Blood Pressure Position Sitting O2 Sat by Pulse Oximetry 98 Oxygen Delivery Method Room Air Oxygen Flow Rate Telemetry Type Telemetry Monitoring Telemetry Heart Rate EKG IA Interval EKG QRS Interval Telemetry Strip Reading Lab Results Lab Results: Lab Results: Last 24 Hours 10/09/23 10/08/23 05:09 12:37 WBC 9.13 RBC 2.92 L Hgb 9.8 L Hct 29.6 L MCV 101.4 H MCH 33.6 H MCHC 33.1 RDW Coeff of Juanito 16.9 H Plt Count 253 Immature Gran % (Auto) 0.8 Neut % (Auto) 54.8 Lymph % (Auto) 31.4 [place] % (Auto) 11.4 H Eos % (Auto) 1.4 Baso % (Auto) 0.2 Neut # (Auto) 5.0 Lymph # (Auto) 2.9 [place] # (Auto) 1.0 Eos # (Auto) 0.1 Baso # (Auto) 0.0 Immature Gran # (Auto) 0.1 Sodium 137.3 Potassium 4.21 Chloride 109.6 H Carbon Dioxide 24.1 Anion Gap 7.81 BUN 11.8 Creatinine 0.48 L Estimated GFR (MDRD) 196.00 BUN/Creatinine Ratio 24.58 Glucose 103.5 Calcium 9.65 Total Bilirubin 0.60 AST 49.4 ALT 101.4 H Alkaline Phosphatase 91.9 Total Protein 7.58 Albumin 3.53 Globulin 4.05 Albumin/Globulin Ratio 0.87 Vancomycin Trough 14.408 Additional Comments Additional Comments: I have independently reviewed and interpreted the labs/EKGs/imaging ordered during this hospital stay. I have reviewed outside records that are available in our EMR that pertain to medical stay including imaging/notes/labs from previous visits. Active Medications Active Medications: Medications Generic Name Dose Route Start Last Admin Trade Name Freq PRN Reason Stop Dose Admin Acetaminophen 650 mg 10/05/23 18:13 10/07/23 08:31 Acetaminophen 325 Mg Tablet PO 650 mg Q4H PRN Administration Mild Pain Diazepam 4 mg 10/07/23 21:37 10/08/23 03:01 Diazepam 10 Mg/2 Ml Disp.Syrin IVP 4 mg ONCE PRN Administration Agitation Doxycycline Hyclate 100 mg 10/09/23 10:35 Doxycycline Hyclate 100 Mg Capsule PO 10/12/23 10:34 Q12HR MARIA C Enoxaparin Sodium 70 mg 10/08/23 12:55 10/09/23 08:59 Enoxaparin Sodium 100 Mg/Ml Syr SUBCUT 70 mg Q12HR MARIA C Administration Folic Acid 1 mg 10/06/23 09:00 10/09/23 08:59 Folic Acid 1 Mg Tablet PO 1 mg DAILY MARIA C Administration Hydralazine HCl 10 mg 10/06/23 15:27 10/07/23 17:35 Hydralazine Hcl 20 Mg/Ml Sdv IVP 10 mg Q6H PRN Administration Hypertension Ketorolac Tromethamine 15 mg 10/06/23 12:23 10/08/23 12:16 Ketorolac Tromethamine 15 Mg/Ml Vial IVP 10/10/23 12:23 15 mg Q6HR PRN Administration Pain Labetalol HCl 10 mg 10/07/23 21:02 10/08/23 18:14 Labetalol Hcl 20 Mg/4 Ml Disp.Syrin IVP 10 mg Q4H PRN Administration Hypertension Lorazepam 2 mg 10/07/23 09:44 10/08/23 21:04 Lorazepam Inj 2 Mg/Ml Vial IVP 2 mg Q4H PRN Administration Anxiety Lorazepam 1 mg 10/07/23 21:00 10/09/23 08:59 Lorazepam 1 Mg Tablet PO 1 mg BID MARIA C Administration Metoprolol Tartrate 50 mg 10/09/23 12:00 Metoprolol Tartrate 25 Mg Tablet PO Q6HR MARIA C Multivitamins 1 tab 10/06/23 09:00 10/09/23 08:59 Multivitamin 1 Tab PO 1 tab DAILY MARIA C Administration Nicotine 1 patch 10/06/23 09:30 10/09/23 08:58 Nicotine 21 Mg Patch.Td24 TD 1 patch DAILY MARIA C Administration Olanzapine 5 mg 10/07/23 09:00 10/09/23 08:59 Olanzapine 2.5 Mg Tablet PO 5 mg BID MARIA C Administration Ondansetron HCl 4 mg 10/05/23 18:13 Ondansetron Hcl/Pf 4 Mg/2 Ml Sdv IVP Q6H PRN Nausea / Vomiting Thiamine HCl 100 mg 10/06/23 09:00 10/09/23 08:59 Vitamin B-1 100 Mg Tablet PO 100 mg DAILY MARIA C Administration Ziprasidone 20 mg 10/08/23 22:41 10/08/23 22:54 Ziprasidone Mesylate 20 Mg/Ml Vial IM 20 mg Q4H PRN Administration Restlessness, Agitation Plan Plan: 1. Cellulitis to bilateral feet - Improving, no open wounds to culture, CRP ordered, MRSA swab negative, stop vanc/cefepime, transition to PO Doxy 2. Right segmental lower lobe PE - lovenox 1mg/kg, venous US bilateral legs ordered to r/o DVT, transition to eliquis for discharge if covered, lawton checking. 3. Schizophrenia with Command Hallucinations - [facility] evaluated and is working on psychiatric placement for when patient becomes medically stable, suicide precautions, zyprexa and ativan ordered PO, given valium, haldol, and zyprexa IM with no response. 4. Tobacco use - nicotine patch daily 5. Hypokalemia - Resolved. Monitor 6. Elevated LFTS - chronic alcohol abuse, trending down, no pain or symptoms, monitor 7. Hypertension secondary to schizoprenia/anxiety - Improving, 136/88 today. Cont metoprolol. Labetalol and hydralazine ordered prn. 8. Sinus Tachycardia - Increase metoprolol to 50 mg PO Q6H ordered. CTA positive for PE, likely contributing 9. Alcohol Withdrawal - Resolved, d/c CIWA, no active signs of withdrawal, #3 present. monitor DVT Prophylaxis: Up with assist Dispo: Working on improving HR, transitioning lovenox to another agent pending insurance, and working on psychiatric placement. Review Statement Review Statement: I have personally discussed and reviewed the patient's visit/currently labs/imaging/decision making with Dr. Barrera, my supervising attending. Greater that 50 minutes spent with patient, 50% of the time spent with this patient was devoted to counseling and coordination of care.
[2023-10-09] MEDS: DOXYCYCLINE HYCLATE PO SCH ×2 (11:09→21:00)
[2023-10-09] MEDS: TYLENOL PO PRN (11:13)
[2023-10-09] MEDS ORDERED: MOTRIN PO ONE (14:00)
[2023-10-09] MEDS ORDERED: NEURONTIN PO ONE (14:00)
[2023-10-09] MEDS: GEODON IM PRN (17:06)
[2023-10-09] MEDS: NEURONTIN PO SCH (21:00)
[2023-10-10] MEDS: LOPRESSOR PO SCH ×6 (01:04→22:26)
[2023-10-10 05:03] LABS: BASOPHILS % (AUTO) 0.4 % (0.0-3.0); EOSINOPHILS # (AUTO) 0.1 K/ul (0.0-0.7); EOSINOPHILS % (AUTO) 1.9 % (0.0-7.0); HEMATOCRIT 29.4 % (42.0-52.0); HEMOGLOBIN 9.7 g/dl (14.0-18.0); IMMATURE GRANULOCYTE # (AUTO) 0.1 (0.0-1.0); IMMATURE GRANULOCYTE % (AUTO) 0.7 % (0.0-5.0); LYMPHOCYTES # (AUTO) 2.8 K/uL (0.60-3.4); LYMPHOCYTES % (AUTO) 41.9 (10.0-50.0); MEAN CORPUSCULAR HEMOGLOBIN 33.3 pg (27.0-31.0); MONOCYTES # (AUTO) 0.8 K/uL (0.4-2.0); MONOCYTES % (AUTO) 11.6 (0-10); NEUTROPHILS # (AUTO) 2.9 K/ul (2.0-6.9); NEUTROPHILS % (AUTO) 43.5 % (42.2-75.2); PLATELET COUNT 248 10^3/uL (140-440); RDW COEFFICIENT OF VARIATION 16.7 % (11.6-14.8); RED BLOOD COUNT 2.91 10^6/ul (4.70-6.10); WHITE BLOOD COUNT 6.73 K/ul (4.2-10.2)
[2023-10-10 05:17] LABS: ALANINE AMINOTRANSFERASE 87.3 U/L (0-50); ALBUMIN 3.51 g/dL (3.5-5.0); ALKALINE PHOSPHATASE 87.3 U/L (38-126); ASPARTATE AMINO TRANSFERASE 50.3 U/L (17-59); BILIRUBIN,TOTAL 0.65 mg/dL (0.2-1.3); BLOOD UREA NITROGEN 10.3 mg/dL (9-20); CALCIUM 9.49 mg/dL (8.4-10.2); CARBON DIOXIDE 22.4 mmol/L (22-30.0); CHLORIDE 106.9 mmol/L (98-107); CREATININE 0.49 mg/dL (0.60-1.10); GLUCOSE 117.5 mg/dL (74-106); SODIUM 135.1 mmol/L (134.5-145); TOTAL PROTEIN 7.54 g/dL (6.3-8.2)
[2023-10-10 05:30] LABS: POTASSIUM 4.01 mmol/L (3.5-5.1)
[2023-10-10] MEDS: LOVENOX SUBCUT SCH ×2 (08:26→20:29)
[2023-10-10] MEDS: NICODERM 21 MG TD SCH (08:26)
[2023-10-10] MEDS: ATIVAN PO SCH ×2 (08:27→20:31)
[2023-10-10] MEDS: ZYPREXA PO SCH ×2 (08:27→20:31)
[2023-10-10] MEDS: MULTIVITAMIN TABLET PO SCH (08:27)
[2023-10-10] MEDS: THIAMINE PO SCH (08:27)
[2023-10-10] MEDS: DOXYCYCLINE HYCLATE PO SCH ×2 (08:27→20:32)
[2023-10-10] MEDS: FOLIC ACID PO SCH (08:28)
[2023-10-10 09:03] LABS: CREATINE KINASE 93.7 U/L (55-170)
--- NOTE | 2023-10-10 09:43 | DI ---
EXAM: RIGHT KNEE RADIOGRAPH. HISTORY: Right knee pain. TECHNIQUE: Two views. Frontal and lateral. COMPARISON: None. IMPRESSION: No acute fracture or dislocation identified. Tibiofemoral joint spaces are maintained. Th e patellofemoral joint space is maintained. No significant effusion. No osseous lesions. The soft ti ssues are unremarkable.
--- NOTE | 2023-10-10 09:43 | DI ---
PATIENT: AP PELVIS WITH TWO VIEWS OF THE BILATERAL HIPS. HISTORY: Unable to ambulate. COMPARISON: None FINDINGS: Mild bilateral hip joint space narrowing and acetabular osteophytosis. No sacroiliac join t fusion or widening. Phleboliths in the pelvis. Normal mineralization. No acute fracture or dislocation. IMPRESSION: No acute osseous abnormality. Mild degenerative changes in the hips.
--- NOTE | 2023-10-10 09:44 | DI ---
EXAM: LEFT KNEE RADIOGRAPH. HISTORY: Left knee pain. TECHNIQUE: Two views. Frontal and lateral. COMPARISON: None. IMPRESSION: Abnormal exam. There is a curvilinear vertically oriented lucency through the lateral ma rgin of the proximal tibia suggesting nondisplaced acute fracture. There is mild narrowing of the me dial tibiofemoral compartment joint space. Lateral compartment joint space is preserved. Patellofem oral joint space is maintained. No knee joint effusion.
[2023-10-10 10:10] LABS: FOLATE 8.92 ng/mL
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
--- NOTE | 2023-10-10 12:02 | CT ---
EXAM: CT LEFT KNEE WITHOUT CONTRAST HISTORY: Abnormal x-ray, rule out fracture COMPARISON: Radiographs from 10/10/2023. FINDINGS: Axial CT images of the left knee without contrast and multiplanar reformatted images. Comminuted lateral tibial plateau fracture. No significant depression or displacement. The appearan ce suggest Schatzker type I. No significant joint effusion. No fracture involving the proximal fibula, distal femur or patella. Limited evaluation of the menisci on this noncontrast CT examination. The cruciate ligaments are intact. The quadriceps and patellar tendons are intact. IMPRESSION: Comminuted, nondisplaced lateral tibial plateau fracture. Please see above description and additional findings. All CT scans are performed using dose optimization techniques as appropriate to the performed exam an d include at least one of the following: Automated exposure control, adjustment of the mA and/or kV according t o size, and the use of iterative reconstruction technique.
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
[2023-10-10] MEDS: GEODON IM PRN (14:11)
[2023-10-10] MEDS: NEURONTIN PO SCH (20:31)
[2023-10-11] MEDS: LOPRESSOR PO SCH ×4 (00:08→17:55)
[2023-10-11 05:24] LABS: BASOPHILS % (AUTO) 0.3 % (0.0-3.0); EOSINOPHILS # (AUTO) 0.2 K/ul (0.0-0.7); HEMATOCRIT 32.6 % (42.0-52.0); HEMOGLOBIN 10.6 g/dl (14.0-18.0); IMMATURE GRANULOCYTE % (AUTO) 0.5 % (0.0-5.0); LYMPHOCYTES # (AUTO) 2.9 K/uL (0.60-3.4); LYMPHOCYTES % (AUTO) 38.9 (10.0-50.0); MEAN CORPUSCULAR HGB CONC 32.5 (31.8-35.4); MEAN CORPUSCULAR VOLUME 101.6 fl (80.0-94.0); MONOCYTES # (AUTO) 0.8 K/uL (0.4-2.0); MONOCYTES % (AUTO) 10.5 (0-10); NEUTROPHILS # (AUTO) 3.5 K/ul (2.0-6.9); NEUTROPHILS % (AUTO) 47.8 % (42.2-75.2); PLATELET COUNT 268 10^3/uL (140-440); RDW COEFFICIENT OF VARIATION 16.4 % (11.6-14.8); RED BLOOD COUNT 3.21 10^6/ul (4.70-6.10)
[2023-10-11 05:41] LABS: ALANINE AMINOTRANSFERASE 73.9 U/L (0-50); ALBUMIN 3.57 g/dL (3.5-5.0); ALKALINE PHOSPHATASE 83.2 U/L (38-126); ASPARTATE AMINO TRANSFERASE 48.3 U/L (17-59); BILIRUBIN,TOTAL 0.63 mg/dL (0.2-1.3); CALCIUM 9.69 mg/dL (8.4-10.2); CARBON DIOXIDE 23.8 mmol/L (22-30.0); CHLORIDE 107.1 mmol/L (98-107); CREATININE 0.54 mg/dL (0.60-1.10); GLUCOSE 108.8 mg/dL (74-106); POTASSIUM 4.23 mmol/L (3.5-5.1); SODIUM 136.7 mmol/L (134.5-145); TOTAL PROTEIN 7.59 g/dL (6.3-8.2)
[2023-10-11] MEDS: FOLIC ACID PO SCH (08:58)
[2023-10-11] MEDS: ZYPREXA PO SCH ×2 (08:58→21:01)
[2023-10-11] MEDS: THIAMINE PO SCH (08:58)
[2023-10-11] MEDS: ATIVAN PO SCH ×2 (08:58→21:00)
[2023-10-11] MEDS: MULTIVITAMIN TABLET PO SCH (08:58)
[2023-10-11] MEDS: DOXYCYCLINE HYCLATE PO SCH ×2 (08:58→21:01)
[2023-10-11] MEDS: NICODERM 21 MG TD SCH (08:59)
[2023-10-11] MEDS: LOVENOX SUBCUT SCH ×2 (09:00→21:01)
[2023-10-11] MEDS: GEODON IM PRN (13:53)
[2023-10-11] MEDS: TYLENOL PO PRN (13:58)
[2023-10-11] MEDS ORDERED: ATIVAN IM ONE (15:04)
[2023-10-11] MEDS ORDERED: BENADRYL IM STA (15:04)
[2023-10-11] MEDS ORDERED: HALDOL IM ONE (15:05)
--- NOTE | 2023-10-11 15:27 | PCM.PROG ---
Date/Time Seen Date Seen by Provider: 10/11/23 Time Seen by Provider: 08:50 Provider Provider: MIAH STALLINGS [facility]-C, [facility] Chief Complaint Chief Complaint: ALCHOL ABUSE W/WITHDRAW,FORMICATION,ACUTE HYPOKALE Subjective Subjective: Patient awaiting placement to psych. Mother brought in his knee immobilizer from August to be placed on him per ortho recs. HR has been stable. Objective Appearance: Positive No Apparent Distress Chest/Lungs: Positive Symmetrical With Equal Breath Sounds, Clear to Auscultation Bilaterally and Good Air Movement all 4 Lung Sheehan Heart: Positive RRR and Pulses Normal GI/: Positive Soft, Nontender, Bowel Sounds Normal and No Distention Neurological: Positive Cranial Nerves Intact, Alert and Oriented (to self and time. ) Additional Findings: Hallucinations and delusions present. Easily gets distracted. Flight of ideas. Anxious. [place] feet - Erythema resolved and swelling improving. Vital Signs Vital Signs: Vital Signs: Last 24 Hours 10/10/23 18:00 10/10/23 20:00 10/10/23 20:00 Temperature 98.2 F Temperature Source Oral Pulse Rate 118 H Pulse Rate [Apical] Respiratory Rate 17 Blood Pressure 125/84 Blood Pressure Mean 97 Blood Pressure Location Right Arm Blood Pressure Position Supine O2 Sat by Pulse Oximetry 97 Oxygen Delivery Method Room Air Room Air Room Air 10/10/23 21:45 10/11/23 02:00 10/11/23 04:43 Temperature 98.1 F 97.3 F L Temperature Source Oral Temporal Artery Scan Pulse Rate 106 H 111 H Pulse Rate [Apical] Respiratory Rate 16 20 Blood Pressure 150/102 H 140/98 H Blood Pressure Mean 118 112 Blood Pressure Location Right Arm Left Arm Blood Pressure Position Supine Supine O2 Sat by Pulse Oximetry 96 96 Oxygen Delivery Method Room Air Room Air Room Air 10/11/23 05:22 10/11/23 08:00 10/11/23 09:53 Temperature 97.7 F 97.4 F L Temperature Source Temporal Artery Scan Temporal Artery Scan Pulse Rate 115 H 123 H Pulse Rate [Apical] 104 H Respiratory Rate 18 16 Blood Pressure 130/91 H 145/97 H Blood Pressure Mean 104 113 Blood Pressure Location Left Arm Right Arm Blood Pressure Position Supine O2 Sat by Pulse Oximetry 98 95 Oxygen Delivery Method Room Air Room Air Room Air 10/11/23 14:00 Temperature 97.6 F Temperature Source Temporal Artery Scan Pulse Rate 99 Pulse Rate [Apical] Respiratory Rate 18 Blood Pressure 106/65 Blood Pressure Mean 78 Blood Pressure Location Right Arm Blood Pressure Position O2 Sat by Pulse Oximetry 96 Oxygen Delivery Method Room Air Lab Results Lab Results: Lab Results: Last 24 Hours 10/11/23 05:18 WBC 7.40 RBC 3.21 L Hgb 10.6 L Hct 32.6 L MCV 101.6 H MCH 33.0 H MCHC 32.5 RDW Coeff of Juanito 16.4 H Plt Count 268 Immature Gran % (Auto) 0.5 Neut % (Auto) 47.8 Lymph % (Auto) 38.9 [place] % (Auto) 10.5 H Eos % (Auto) 2.0 Baso % (Auto) 0.3 Neut # (Auto) 3.5 Lymph # (Auto) 2.9 [place] # (Auto) 0.8 Eos # (Auto) 0.2 Baso # (Auto) 0.0 Immature Gran # (Auto) 0.0 Sodium 136.7 Potassium 4.23 Chloride 107.1 H Carbon Dioxide 23.8 Anion Gap 10.03 BUN 13.0 Creatinine 0.54 L Estimated GFR (MDRD) 171.00 BUN/Creatinine Ratio 24.07 Glucose 108.8 H Calcium 9.69 Total Bilirubin 0.63 AST 48.3 ALT 73.9 H Alkaline Phosphatase 83.2 Total Protein 7.59 Albumin 3.57 Globulin 4.02 Albumin/Globulin Ratio 0.88 Additional Comments Additional Comments: I have independently reviewed and interpreted the labs/EKGs/imaging ordered during this hospital stay. I have reviewed outside records that are available in our EMR that pertain to medical stay including imaging/notes/labs from previous visits. Active Medications Active Medications: Medications Generic Name Dose Route Start Last Admin Trade Name Freq PRN Reason Stop Dose Admin Acetaminophen 650 mg 10/05/23 18:13 10/11/23 13:58 Acetaminophen 325 Mg Tablet PO 650 mg Q4H PRN Administration Mild Pain Doxycycline Hyclate 100 mg 10/09/23 10:35 10/11/23 08:58 Doxycycline Hyclate 100 Mg Capsule PO 10/12/23 10:34 100 mg Q12HR MARIA C Administration Enoxaparin Sodium 70 mg 10/08/23 12:55 10/11/23 09:00 Enoxaparin Sodium 100 Mg/Ml Syr SUBCUT 70 mg Q12HR MARIA C Administration Folic Acid 1 mg 10/06/23 09:00 10/11/23 08:58 Folic Acid 1 Mg Tablet PO 1 mg DAILY MARIA C Administration Gabapentin 300 mg 10/09/23 21:00 10/10/23 20:31 Gabapentin 300 Mg Capsule PO 300 mg 2100 MARIA C Administration Lorazepam 2 mg 10/07/23 09:44 10/08/23 21:04 Lorazepam Inj 2 Mg/Ml Vial IVP 2 mg Q4H PRN Administration Anxiety Lorazepam 1 mg 10/07/23 21:00 10/11/23 08:58 Lorazepam 1 Mg Tablet PO 1 mg BID MARIA C Administration Metoprolol Tartrate 50 mg 10/09/23 12:00 10/11/23 12:20 Metoprolol Tartrate 25 Mg Tablet PO 50 mg Q6HR MARIA C Administration Multivitamins 1 tab 10/06/23 09:00 10/11/23 08:58 Multivitamin 1 Tab PO 1 tab DAILY MARIA C Administration Nicotine 1 patch 10/06/23 09:30 10/11/23 08:59 Nicotine 21 Mg Patch.Td24 TD 1 patch DAILY MARIA C Administration Olanzapine 5 mg 10/07/23 09:00 10/11/23 08:58 Olanzapine 2.5 Mg Tablet PO 5 mg BID MARIA C Administration Ondansetron HCl 4 mg 10/05/23 18:13 Ondansetron Hcl/Pf 4 Mg/2 Ml Sdv IVP Q6H PRN Nausea / Vomiting Thiamine HCl 100 mg 10/06/23 09:00 10/11/23 08:58 Vitamin B-1 100 Mg Tablet PO 100 mg DAILY MARIA C Administration Ziprasidone 20 mg 10/08/23 22:41 10/11/23 13:53 Ziprasidone Mesylate 20 Mg/Ml Vial IM 20 mg Q4H PRN Administration Restlessness, Agitation Plan Plan: 1. Cellulitis to bilateral feet - Resolved, no open wounds to culture, CRP normal, MRSA swab negative, continue PO Doxy 2. Right segmental lower lobe PE - lovenox 1mg/kg, venous US bilateral legs negative for DVT, transition to eliquis at discharge, PA approved by insurance. 3. Schizophrenia with Command Hallucinations - [facility] present today to help with placement, pt still having hallucinations/delusions, suicide precautions, zyprexa and ativan ordered PO, given valium, haldol, and zyprexa IM with no response. Was on invega in the past with good response per mom, but insurance stopped covering it. 4. Tobacco use - nicotine patch daily 5. Hypokalemia - Resolved. Monitor 6. Elevated LFTS - chronic alcohol abuse, trending down, no pain or symptoms, monitor 7. Hypertension secondary to schizoprenia/anxiety - Improving, 106/65 today. Cont metoprolol. 8. Sinus Tachycardia - Cont metoprolol to 50 mg PO Q6H ordered. CTA positive for PE, likely contributing 9. Alcohol Withdrawal - Resolved, d/c CIWA, no active signs of withdrawal, #3 present. monitor 10. Left comminuted nondisplaced alteral tibial plateau fracture - Spoke with ortho at [facility], Dr. Barnett. He advised to place in knee immobilizer and f/u outpatient in the clinic. NWB. Discussed concerns that last time patient was unable to follow up due to his medicaid insurance, Dr. Barnett states his office will see him. Send disc of imaging with him. states Dr. Zarco office will not make an apt due to his insurance. [facility] [place] states they cannot take him because they don't take patient's as far as [place]. Referral sent to [facility]. DVT Prophylaxis: Lovenox Dispo: [facility] here trying to place patient to psychiatric facility Patient is medically cleared for psych evaluation and transport when needed. Update: 1500 - Pt becoming agitated and yelling/threatening staff. B52 ordered. Pt tolerated well. Review Statement Review Statement: I have personally discussed and reviewed the patient's visit/currently labs/imaging/decision making with Dr. Barrera, my supervising attending. Greater that 50 minutes spent with patient, 50% of the time spent with this patient was devoted to counseling and coordination of care.
[2023-10-11] MEDS: NEURONTIN PO SCH (21:00)
[2023-10-12] MEDS: LOPRESSOR PO SCH ×6 (00:14→23:08)
[2023-10-12 05:31] LABS: BASOPHILS % (AUTO) 0.3 % (0.0-3.0); EOSINOPHILS # (AUTO) 0.1 K/ul (0.0-0.7); EOSINOPHILS % (AUTO) 1.6 % (0.0-7.0); HEMATOCRIT 31.1 % (42.0-52.0); HEMOGLOBIN 10.3 g/dl (14.0-18.0); IMMATURE GRANULOCYTE % (AUTO) 0.5 % (0.0-5.0); LYMPHOCYTES # (AUTO) 2.6 K/uL (0.60-3.4); LYMPHOCYTES % (AUTO) 41.1 (10.0-50.0); MEAN CORPUSCULAR HEMOGLOBIN 33.8 pg (27.0-31.0); MEAN CORPUSCULAR HGB CONC 33.1 (31.8-35.4); MONOCYTES # (AUTO) 0.7 K/uL (0.4-2.0); MONOCYTES % (AUTO) 11.8 (0-10); NEUTROPHILS # (AUTO) 2.8 K/ul (2.0-6.9); NEUTROPHILS % (AUTO) 44.7 % (42.2-75.2); PLATELET COUNT 264 10^3/uL (140-440); RDW COEFFICIENT OF VARIATION 16.5 % (11.6-14.8); RED BLOOD COUNT 3.05 10^6/ul (4.70-6.10); WHITE BLOOD COUNT 6.21 K/ul (4.2-10.2)
[2023-10-12 05:43] LABS: ALANINE AMINOTRANSFERASE 75.9 U/L (0-50); ALBUMIN 3.74 g/dL (3.5-5.0); ALKALINE PHOSPHATASE 91.4 U/L (38-126); ASPARTATE AMINO TRANSFERASE 56.1 U/L (17-59); BILIRUBIN,TOTAL 0.58 mg/dL (0.2-1.3); BLOOD UREA NITROGEN 11.4 mg/dL (9-20); CALCIUM 9.34 mg/dL (8.4-10.2); CARBON DIOXIDE 27.1 mmol/L (22-30.0); CHLORIDE 106.5 mmol/L (98-107); CREATININE 0.57 mg/dL (0.60-1.10); GLUCOSE 109.3 mg/dL (74-106); POTASSIUM 4.11 mmol/L (3.5-5.1); SODIUM 136.4 mmol/L (134.5-145); TOTAL PROTEIN 8.04 g/dL (6.3-8.2)
[2023-10-12] MEDS: ATIVAN PO SCH ×2 (08:27→20:13)
[2023-10-12] MEDS: TYLENOL PO PRN ×2 (08:27→19:23)
[2023-10-12] MEDS: DOXYCYCLINE HYCLATE PO SCH (08:29)
[2023-10-12] MEDS: MULTIVITAMIN TABLET PO SCH (08:29)
[2023-10-12] MEDS: THIAMINE PO SCH (08:30)
[2023-10-12] MEDS: FOLIC ACID PO SCH (08:31)
[2023-10-12] MEDS: ZYPREXA PO SCH (08:31)
[2023-10-12] MEDS: NICODERM 21 MG TD SCH (08:32)
[2023-10-12] MEDS: LOVENOX SUBCUT SCH ×2 (08:35→20:16)
--- NOTE | 2023-10-12 11:32 | RS.PTINEVL ---
Subjective Patient information Date of Evaluation: 10/12/23 Date of Arrival on Unit: 10/05/23 Admitted From:: Home Diagnosis: comminuted nondisplaced fracture L tibial plateau, cellulitis Usual Living Arrangement: With Parent Living Arrangement Comments: pt lives with his mother. Home Environment: House (unsure, pt is poor historian and mother not present to answer questions.) Medical History: Hypertension Medical History Comments:: anxiety disorder, mood disorder, schizophrenia, depression, menigitis LATEX ALLERGY?: No Medications: see chart Subjective Information/ Patient Comments:: pt states "I walk, I have just been in the bed to rest." pt c/o pain in L knee and B feet. Level of function Prior to this admission, the patient could do the following:: Independent Selfcare, Independent ADL's, Independent Ambulation and Volunteer/Work (states he works at [employer]) Abilities prior to this admission: pt is poor historian, however states he walked fine and does not know how he hurt his knee Current Level of Function: Partially Dependent Current Equipment Used at Home: N/A Pain Assessement Location Left Knee: Description: Sharp Intensity: 6 Pain Behavior: Moaning, Withdrawal from Touch, Rubbing Site and Facial Grimacing Pain Aggravating Factors: Changing Position and Standing Pain Alleviating Factors: Medication B feet : Description: Burning Pain Behavior: Moaning and Facial Grimacing Pain Aggravating Factors: Standing Pain Alleviating Factors: Medication Interventions Objective Patient Orientation: Person Current Interventions: Telemetry Observation: min non pitting edema B feet Range of Motion ROM Right Upper Extremity AROM: WFL's Left Upper Extremity AROM: WFL's Right Lower Extremity AROM: WFL's Left Lower Extremity AROM: WFL's Muscle Strength Muscle Strength Right Upper Extremity: Normal Left Upper Extremity: Normal Right Lower Extremity: Mild Weakness Left Lower Extremity: Mild Weakness Comments:: difficult to fully MMT due to mental status. BLE grossly 4- to 4/5 Sensation Sensation Right Upper Extremity: Intact/Normal Left Upper Extremity: Intact/Normal Right Lower Extremity: Impaired Left Lower Extremity: Impaired Comments: Reports burning and feeling like needles in B feet Palpation Palpation Findings: Tenderness (B LE, B feet) Balance Sitting Balance and Reactions Static Sitting Balance: Good Dynamic Sitting Balance: Good Standing Balance and Reactions Static Standing Balance: Poor Dynamic Standing Balance: Zero Comments Balance Assessment Comments: pt unable to reach full stand Functional Mobility Bed Mobility Rolling R/L: Independent Scooting: Independent Supine to Sit: Independent Sit to Supine: Supervision Transfers Sit to Stand: Max Assist and 2 person assist Stand to Sit: Max Assist and 2 person assist Stand Pivot Transfers: Max Assist and 2 person assist Comments:: pt attempted stand x 3 with rwx and knee immobilizer in place and assist of 2. pt unable to reach full stand. pt is NWB LLE. pt did perform stand pivot from bed to recliner w max of 2 and did weight bear on R minimally. Safety Awareness Safety Awareness: Poor CINTIA INDEX SCORE: n/a Treatment time Units charged ADL: 1 (ther act ) Time with patient Length of Evaluation: 19 Total treatment time: 31 Patient Education Education Patient Education: Activity Modification and Education of Plan of Care Teaching Recipient: Patient Teaching Methods: Discussion Comments: discussion regarding POC. Assessment Assessment Problem List:: Decreased level of function, Requires training/education, Decreased safety/Risk of falls, Weakness, Pain limits previous level of function and Cognitive status limits abilities Rehab Potential: Fair Further Therapy Indicated?: Yes Candidate for Swing Bed for Therapy Services?: Feel pt would not be a candidate for swing bed at this time. Comments: pt is impulsive, emotional requires repeated cues for proper technique Evaluation Complexity: HISTORY: Low, EXAM OF BODY SYSTEMS: Low, CLINICAL PRESENT ATION: Low and CLINICAL DECISION MAKING: Low Patient's Goal(s): pt unable to express at this time. Short Term Goals GOAL #1: pt transfer sit to stand with rwx, knee immobilizer LLE, mod x 1 Goal to be met by: 10/14/23 GOAL #2: Stand pivot bed to/from chair with mod x 1-2 NWB LLE Goal to be met by: 10/14/23 GOAL #3: pt able to stand 30 secs with rwx and maintain NWB LLE mod x 1 Goal to be met by: 10/14/23 Prison Goals GOAL #1: pt transfer sit to/from stand min x 1 Goal to be met by: 10/16/23 GOAL #2: Stand pivot NWB LLE bed to/from chair min x 1 Goal to be met by: 10/16/23 GOAL #3: pt able to propel w/c independently Goal to be met by: 01/15/24 Plan Plan of Care: Therapeutic EX and Therapeutic Activity Modalities: Cold Pack/Cryotherapy Other:: progress to gait if pt able to maintain NWB LLE Frequency of Treatment: 1-2 X day, as tolerated Duration of Treatment: 3-4 days Anticipated Discharge Destination: undetermined Treatment Diagnosis (ICD 10 Codes): weakness M62.81 knee pain L knee fx tibial plateau difficulty walking R 26.2 Has the Physician been added for Co-signature?: Yes
--- NOTE | 2023-10-12 11:41 | PCM.PROG ---
Date/Time Seen Date Seen by Provider: 10/12/23 Time Seen by Provider: 09:00 Provider Provider: [facility]H STALLINGS [facility] Chief Complaint Chief Complaint: ALCHOL ABUSE W/WITHDRAW,FORMICATION,ACUTE HYPOKALE Subjective Subjective: Patient required geodon IM and B52 yesterday due to agitation. He was calm afterwards, and then again last night became agitated. He finally slept some through the night. [facility] back this morning to reevaluate patient again. He has been here several days now, medically stable, awaiting placement to psych. No safe discharge plan available at this time. He is still in a psychosis, having hallucinations and delusions. Yesterday was yelling at his daughter, who was not present. He often does not know where he is located. He is oriented to self and time. He expressed suicidal thoughts to our systems requirements planner yesterday as well. Has remained on suicidal precautions. He has not been violent or combative as of yet. He is to be wearing his left knee immobilizer, and is working with therapy on mobility/transfers/etc. However, it seems as though his psychosis is really hindering his progress as he is convinced he cannot walk. However, he is able to use all 4 extremities with equal strength. He can change position easily in the bed without difficulty. He gets to the side of the bed by himself. However then he refuses to walk, usually citing different reasons why he cannot walk. Objective Appearance: Positive No Apparent Distress Chest/Lungs: Positive Symmetrical With Equal Breath Sounds, Clear to Auscultation Bilaterally and Good Air Movement all 4 Lung She[place]han Heart: Positive RRR and Pulses Normal GI/: Positive Soft, Nontender, Bowel Sounds Normal and No Distention Neurological: Positive Cranial Nerves Intact, Alert and Oriented (to self and time. ) Additional Findings: Hallucinations and delusions present. Easily gets distracted. Flight of ideas. Anxious. Colton feet - Erythema resolved and swelling improving. Vital Signs Vital Signs: Vital Signs: Last 24 Hours 10/11/23 14:00 10/11/23 18:00 10/11/23 19:00 Temperature 97.6 F Temperature Source Temporal Artery Scan Pulse Rate 99 106 H Respiratory Rate 18 18 Blood Pressure 106/65 144/98 H Blood Pressure Mean 78 113 Blood Pressure Location Right Arm Blood Pressure Position Supine O2 Sat by Pulse Oximetry 96 98 Oxygen Delivery Method Room Air Room Air Telemetry Strip Reading Patient refuses 10/11/23 20:00 10/11/23 20:00 10/11/23 22:00 Temperature 98.2 F Temperature Source Temporal Artery Scan Pulse Rate 106 H Respiratory Rate 20 Blood Pressure 148/97 H Blood Pressure Mean 114 Blood Pressure Location Left Arm Blood Pressure Position Supine O2 Sat by Pulse Oximetry 98 Oxygen Delivery Method Room Air Room Air Room Air Telemetry Strip Reading 10/12/23 01:00 10/12/23 05:52 10/12/23 06:00 Temperature 98.6 F Temperature Source Temporal Artery Scan Pulse Rate 110 H Respiratory Rate 20 Blood Pressure 152/99 H Blood Pressure Mean 116 Blood Pressure Location Left Arm Blood Pressure Position Supine O2 Sat by Pulse Oximetry 96 Oxygen Delivery Method Room Air Room Air Telemetry Strip Reading Patient refuses 10/12/23 07:00 10/12/23 09:24 Temperature 97.5 F L Temperature Source Tympanic Pulse Rate 124 H Respiratory Rate 20 Blood Pressure 122/80 Blood Pressure Mean 94 Blood Pressure Location Left Arm Blood Pressure Position Sitting O2 Sat by Pulse Oximetry 99 Oxygen Delivery Method Room Air Telemetry Strip Reading Patient refuses Lab Results Lab Results: Lab Results: Last 24 Hours 10/12/23 05:25 WBC 6.21 RBC 3.05 L Hgb 10.3 L Hct 31.1 L MCV 102.0 H MCH 33.8 H MCHC 33.1 RDW Coeff of Juanito 16.5 H Plt Count 264 Immature Gran % (Auto) 0.5 Neut % (Auto) 44.7 Lymph % (Auto) 41.1 [place] % (Auto) 11.8 H Eos % (Auto) 1.6 Baso % (Auto) 0.3 Neut # (Auto) 2.8 Lymph # (Auto) 2.6 [place] # (Auto) 0.7 Eos # (Auto) 0.1 Baso # (Auto) 0.0 Immature Gran # (Auto) 0.0 Sodium 136.4 Potassium 4.11 Chloride 106.5 Carbon Dioxide 27.1 Anion Gap 6.91 BUN 11.4 Creatinine 0.57 L Estimated GFR (MDRD) 161.00 BUN/Creatinine Ratio 20.00 Glucose 109.3 H Calcium 9.34 Total Bilirubin 0.58 AST 56.1 ALT 75.9 H Alkaline Phosphatase 91.4 Total Protein 8.04 Albumin 3.74 Globulin 4.30 Albumin/Globulin Ratio 0.86 Additional Comments Additional Comments: I have independently reviewed and interpreted the labs/EKGs/imaging ordered during this hospital stay. I have reviewed outside records that are available in our EMR that pertain to medical stay including imaging/notes/labs from previous visits. Active Medications Active Medications: Medications Generic Name Dose Route Start Last Admin Trade Name Freq PRN Reason Stop Dose Admin Acetaminophen 650 mg 10/05/23 18:13 10/12/23 08:27 Acetaminophen 325 Mg Tablet PO 650 mg Q4H PRN Administration Mild Pain Enoxaparin Sodium 70 mg 10/08/23 12:55 10/12/23 08:35 Enoxaparin Sodium 100 Mg/Ml Syr SUBCUT 70 mg Q12HR MARIA C Administration Folic Acid 1 mg 10/06/23 09:00 10/12/23 08:31 Folic Acid 1 Mg Tablet PO 1 mg DAILY MARIA C Administration Gabapentin 300 mg 10/09/23 21:00 10/11/23 21:00 Gabapentin 300 Mg Capsule PO 300 mg 2100 MARIA C Administration Lorazepam 2 mg 10/07/23 09:44 10/08/23 21:04 Lorazepam Inj 2 Mg/Ml Vial IVP 2 mg Q4H PRN Administration Anxiety Lorazepam 1 mg 10/07/23 21:00 10/12/23 08:27 Lorazepam 1 Mg Tablet PO 1 mg BID MARIA C Administration Metoprolol Tartrate 50 mg 10/09/23 12:00 10/12/23 05:15 Metoprolol Tartrate 25 Mg Tablet PO 50 mg Q6HR MARIA C Administration Multivitamins 1 tab 10/06/23 09:00 10/12/23 08:29 Multivitamin 1 Tab PO 1 tab DAILY MARIA C Administration Nicotine 1 patch 10/06/23 09:30 10/12/23 08:32 Nicotine 21 Mg Patch.Td24 TD 1 patch DAILY MARIA C Administration Olanzapine 5 mg 10/07/23 09:00 10/12/23 08:31 Olanzapine 2.5 Mg Tablet PO 5 mg BID MARIA C Administration Ondansetron HCl 4 mg 10/05/23 18:13 Ondansetron Hcl/Pf 4 Mg/2 Ml Sdv IVP Q6H PRN Nausea / Vomiting Thiamine HCl 100 mg 10/06/23 09:00 10/12/23 08:30 Vitamin B-1 100 Mg Tablet PO 100 mg DAILY MARIA C Administration Ziprasidone 20 mg 10/08/23 22:41 10/11/23 13:53 Ziprasidone Mesylate 20 Mg/Ml Vial IM 20 mg Q4H PRN Administration Restlessness, Agitation Plan Plan: 1. Cellulitis to bilateral feet - Resolved, no open wounds to culture, CRP norm al, MRSA swab negative, stop doxy 2. Right segmental lower lobe PE - lovenox 1mg/kg, venous US bilateral legs negative for DVT, transition to eliquis at discharge, PA approved by insurance. 3. Schizophrenia with Command Hallucinations and suicidal ideations - [facility] present today to help with placement, pt still having hallucinations/delusions, suicide precautions, zyprexa and ativan ordered PO, given valium, haldol, and zyprexa IM with no response. Was on invega in the past with good response per mom, but insurance stopped covering it. 4. Tobacco use - nicotine patch daily 5. Hypokalemia - Resolved. Monitor 6. Elevated LFTS - chronic alcohol abuse, trending down, no pain or symptoms, monitor 7. Hypertension - Improving, 122/80 today. Cont metoprolol. 8. Sinus Tachycardia - Improving. Cont metoprolol to 50 mg PO Q6H ordered. This can be weaned outpatient has his PE resolves. CTA positive for PE, likely contributing 9. Alcohol Withdrawal - Resolved, d/c CIWA, no active signs of withdrawal, #3 present. monitor 10. Left comminuted nondisplaced alteral tibial plateau fracture - Spoke with ortho at [facility], Dr. Barnett. He advised to place in knee immobilizer and f/u outpatient in the clinic. NWB. Discussed concerns that last time patient was unable to follow up due to his medicaid insurance, Dr. Barnett states his office will see him. Send disc of imaging with him. states Dr. Zarco office will not make an apt due to his insurance. [facility] in [place] states they cannot take him because they don't take patient's as far as [place]. Referral sent to [facility]. DVT Prophylaxis: Lovenox Dispo: [facility] here trying to place patient to psychiatric facility Patient is medically cleared for psych evaluation and transport when needed. This patient's psychiatric disorder is contributing to his medical wellbeing. Due to lying in bed for 1 1/2 weeks prior to hospitalization, he has developed a PE. There are no psychiatric specialists inpatient at this facility to help with his psychiatric medication regimen. He has been medically stable, just needing to wear a brace on his left leg and work on non weight bearing status on that leg. His HR is mildly elevated at times due to his PE but this will take time to improve and has mostly been controlled with metoprolol. Improving his mental status would help greatly with overcoming these medical issues. The patient has been voluntary to a psychiatric admission. Review Statement Review Statement: I have personally discussed and reviewed the patient's visit/currently labs/imaging/decision making with Dr. Barrera, my supervising attending. Greater that 50 minutes spent with patient, 50% of the time spent with this pa tient was devoted to counseling and coordination of care.
[2023-10-12] MEDS: NEURONTIN PO SCH (20:13)
[2023-10-12] MEDS: RISPERDAL PO SCH (20:13)
[2023-10-13] MEDS: LOPRESSOR PO SCH ×4 (05:20→18:08)
[2023-10-13 05:28] LABS: BASOPHILS % (AUTO) 0.3 % (0.0-3.0); EOSINOPHILS # (AUTO) 0.2 K/ul (0.0-0.7); EOSINOPHILS % (AUTO) 2.5 % (0.0-7.0); HEMATOCRIT 30.5 % (42.0-52.0); HEMOGLOBIN 10.1 g/dl (14.0-18.0); IMMATURE GRANULOCYTE % (AUTO) 0.5 % (0.0-5.0); LYMPHOCYTES # (AUTO) 2.6 K/uL (0.60-3.4); LYMPHOCYTES % (AUTO) 40.4 (10.0-50.0); MEAN CORPUSCULAR HEMOGLOBIN 33.8 pg (27.0-31.0); MEAN CORPUSCULAR HGB CONC 33.1 (31.8-35.4); MONOCYTES # (AUTO) 0.8 K/uL (0.4-2.0); MONOCYTES % (AUTO) 13.2 (0-10); NEUTROPHILS # (AUTO) 2.7 K/ul (2.0-6.9); NEUTROPHILS % (AUTO) 43.1 % (42.2-75.2); PLATELET COUNT 266 10^3/uL (140-440); RDW COEFFICIENT OF VARIATION 15.9 % (11.6-14.8); RED BLOOD COUNT 2.99 10^6/ul (4.70-6.10); WHITE BLOOD COUNT 6.31 K/ul (4.2-10.2)
[2023-10-13 05:41] LABS: ALANINE AMINOTRANSFERASE 74.8 U/L (0-50); ALBUMIN 3.81 g/dL (3.5-5.0); ASPARTATE AMINO TRANSFERASE 45.9 U/L (17-59); BILIRUBIN,TOTAL 0.64 mg/dL (0.2-1.3); BLOOD UREA NITROGEN 12.6 mg/dL (9-20); CALCIUM 9.75 mg/dL (8.4-10.2); CARBON DIOXIDE 25.4 mmol/L (22-30.0); CHLORIDE 103.3 mmol/L (98-107); CREATININE 0.61 mg/dL (0.60-1.10); GLUCOSE 111.2 mg/dL (74-106); POTASSIUM 4.35 mmol/L (3.5-5.1); TOTAL PROTEIN 7.96 g/dL (6.3-8.2)
[2023-10-13] MEDS: NICODERM 21 MG TD SCH (09:28)
[2023-10-13] MEDS: THIAMINE PO SCH (09:33)
[2023-10-13] MEDS: FOLIC ACID PO SCH (09:33)
[2023-10-13] MEDS: ATIVAN PO SCH ×2 (09:33→20:09)
[2023-10-13] MEDS: RISPERDAL PO SCH ×2 (09:33→20:08)
[2023-10-13] MEDS: MULTIVITAMIN TABLET PO SCH (09:33)
[2023-10-13] MEDS: LOVENOX SUBCUT SCH ×2 (09:35→20:09)
--- NOTE | 2023-10-13 13:20 | PCM.PROG ---
Date/Time Seen Date Seen by Provider: 10/13/23 Time Seen by Provider: 09:00 Provider Provider: MIAH STALLINGS [facility]-C, [facility] Chief Complaint Chief Complaint: ALCHOL ABUSE W/WITHDRAW,FORMICATION,ACUTE HYPOKALE Subjective Subjective: No change with patient overnight. Still in psychosis. He is participating with therapy. Objective Appearance: Positive No Apparent Distress Chest/Lungs: Positive Symmetrical With Equal Breath Sounds, Clear to Auscultation Bilaterally and Good Air Movement all 4 Lung She[place]han Heart: Positive RRR and Pulses Normal GI/: Positive Soft, Nontender, Bowel Sounds Normal and No Distention Neurological: Positive Cranial Nerves Intact, Alert and Oriented (to self and time. ) Additional Findings: Hallucinations and delusions present. Easily gets distracted. Flight of ideas. Anxious. Colton feet - Erythema resolved and swelling improving. Vital Signs Vital Signs: Vital Signs: Last 24 Hours 10/12/23 13:39 10/12/23 13:55 10/12/23 17:34 Temperature 97.4 F L 97.4 F L Temperature Source Tympanic Tympanic Pulse Rate 118 H 109 H Pulse Rate [Apical] Respiratory Rate 20 18 Blood Pressure 124/84 127/84 Blood Pressure Mean 97 98 Blood Pressure Location Right Arm Left Arm Blood Pressure Position Supine Sitting O2 Sat by Pulse Oximetry 97 96 Oxygen Delivery Method Room Air Room Air Room Air Telemetry Strip Reading 10/12/23 19:00 10/12/23 20:00 10/12/23 20:00 Temperature Temperature Source Pulse Rate Pulse Rate [Apical] 102 H Respiratory Rate Blood Pressure Blood Pressure Mean Blood Pressure Location Blood Pressure Position O2 Sat by Pulse Oximetry Oxygen Delivery Method Room Air Room Air Telemetry Strip Reading Patient refuses 10/12/23 21:34 10/13/23 01:00 10/13/23 05:02 Temperature 98.7 F Temperature Source Temporal Artery Scan Pulse Rate 102 H Pulse Rate [Apical] Respiratory Rate 20 Blood Pressure 125/82 Blood Pressure Mean 96 Blood Pressure Location Left Arm Blood Pressure Position Supine O2 Sat by Pulse Oximetry 99 Oxygen Delivery Method Room Air Room Air Telemetry Strip Reading Patient refuses 10/13/23 05:52 10/13/23 09:20 10/13/23 09:48 Temperature 98.9 F 97.4 F L Temperature Source Temporal Artery Scan Tympanic Pulse Rate 117 H 102 H Pulse Rate [Apical] Respiratory Rate 22 H 20 Blood Pressure 146/101 H 94/58 L Blood Pressure Mean 116 70 Blood Pressure Location Left Arm Right Arm Blood Pressure Position Supine Sitting O2 Sat by Pulse Oximetry 98 98 Oxygen Delivery Method Room Air Room Air Room Air Telemetry Strip Reading 10/13/23 13:05 Temperature Temperature Source Pulse Rate Pulse Rate [Apical] Respiratory Rate Blood Pressure Blood Pressure Mean Blood Pressure Location Blood Pressure Position O2 Sat by Pulse Oximetry Oxygen Delivery Method Room Air Telemetry Strip Reading Lab Results Lab Results: Lab Results: Last 24 Hours 10/13/23 05:19 WBC 6.31 RBC 2.99 L Hgb 10.1 L Hct 30.5 L MCV 102.0 H MCH 33.8 H MCHC 33.1 RDW Coeff of Juanito 15.9 H Plt Count 266 Immature Gran % (Auto) 0.5 Neut % (Auto) 43.1 Lymph % (Auto) 40.4 [place] % (Auto) 13.2 H Eos % (Auto) 2.5 Baso % (Auto) 0.3 Neut # (Auto) 2.7 Lymph # (Auto) 2.6 [place] # (Auto) 0.8 Eos # (Auto) 0.2 Baso # (Auto) 0.0 Immature Gran # (Auto) 0.0 Sodium 135.0 Potassium 4.35 Chloride 103.3 Carbon Dioxide 25.4 Anion Gap 10.65 BUN 12.6 Creatinine 0.61 Estimated GFR (MDRD) 149.00 BUN/Creatinine Ratio 20.65 Glucose 111.2 H Calcium 9.75 Total Bilirubin 0.64 AST 45.9 ALT 74.8 H Alkaline Phosphatase 75.0 Total Protein 7.96 Albumin 3.81 Globulin 4.15 Albumin/Globulin Ratio 0.91 Additional Comments Additional Comments: I have independently reviewed and interpreted the labs/EKGs/imaging ordered during this hospital stay. I have reviewed outside records that are available in our EMR that pertain to medical stay including imaging/notes/labs from previous visits. Active Medications Active Medications: Medications Generic Name Dose Route Start Last Admin Trade Name Freq PRN Reason Stop Dose Admin Acetaminophen 650 mg 10/05/23 18:13 10/12/23 19:23 Acetaminophen 325 Mg Tablet PO 650 mg Q4H PRN Administration Mild Pain Enoxaparin Sodium 70 mg 10/08/23 12:55 10/13/23 09:35 Enoxaparin Sodium 100 Mg/Ml Syr SUBCUT 70 mg Q12HR MARIA C Administration Folic Acid 1 mg 10/06/23 09:00 10/13/23 09:33 Folic Acid 1 Mg Tablet PO 1 mg DAILY MARIA C Administration Gabapentin 300 mg 10/09/23 21:00 10/12/23 20:13 Gabapentin 300 Mg Capsule PO 300 mg 2100 MARIA C Administration Lorazepam 2 mg 10/07/23 09:44 10/08/23 21:04 Lorazepam Inj 2 Mg/Ml Vial IVP 2 mg Q4H PRN Administration Anxiety Lorazepam 1 mg 10/07/23 21:00 10/13/23 09:33 Lorazepam 1 Mg Tablet PO 1 mg BID MARIA C Administration Metoprolol Tartrate 50 mg 10/09/23 12:00 10/13/23 12:18 Metoprolol Tartrate 25 Mg Tablet PO Not Given Q6HR [facility] Multivitamins 1 tab 10/06/23 09:00 10/13/23 09:33 Multivitamin 1 Tab PO 1 tab DAILY MARIA C Administration Nicotine 1 patch 10/06/23 09:30 10/13/23 09:28 Nicotine 21 Mg Patch.Td24 TD 1 patch DAILY [facility] Administration Ondansetron HCl 4 mg 10/05/23 18:13 Ondansetron Hcl/Pf 4 Mg/2 Ml Sdv IVP Q6H PRN Nausea / Vomiting Risperidone 1 mg 10/12/23 21:00 10/13/23 09:33 Risperidone 1 Mg Tablet PO 1 mg Q12HR MARIA C Administration Thiamine HCl 100 mg 10/06/23 09:00 10/13/23 09:33 Vitamin B-1 100 Mg Tablet PO 100 mg DAILY MARIA C Administration Ziprasidone 20 mg 10/08/23 22:41 10/11/23 13:53 Ziprasidone Mesylate 20 Mg/Ml Vial IM 20 mg Q4H PRN Administration Restlessness, Agitation Plan Plan: 1. Cellulitis to bilateral feet - Resolved, no open wounds to culture, CRP normal, MRSA swab negative, stop doxy 2. Right segmental lower lobe PE - lovenox 1mg/kg, venous US bilateral legs negative for DVT, transition to eliquis at discharge, PA approved by insurance. 3. Schizophrenia with Command Hallucinations and suicidal ideations - [facility] present today to help with placement, pt still having hallucinations/delusions, suicide precautions, stopped zyprexa, started risperidone 1 mg bid yesterday, he has been given valium, haldol, and zyprexa IM with no response. Was on invega in the past with good response per mom, but insurance stopped covering it. 4. Tobacco use - nicotine patch daily 5. Hypokalemia - Resolved. Monitor 6. Elevated LFTS - chronic alcohol abuse, trending down, no pain or symptoms, monitor 7. Hypertension - Improving, 122/80 today. Cont metoprolol. 8. Sinus Tachycardia - Improving. Cont metoprolol to 50 mg PO Q6H ordered. This can be weaned outpatient has his PE resolves. CTA positive for PE, likely contributing 9. Alcohol Withdrawal - Resolved, d/c CIWA, no active signs of withdrawal, #3 present. monitor 10. Left comminuted nondisplaced alteral tibial plateau fracture - Spoke with ortho at [facility], Dr. Barnett. He advised to place in knee immobilizer and f/u outpatient in the clinic. NWB left side. Discussed concerns that last time patient was unable to follow up due to his medicaid insurance, Dr. Barnett states his office will see him. Send disc of imaging with him. states Dr. Zarco office will not make an apt due to his insurance. [facility] in [place] states they cannot take him because they don't take patient's as far as [place]. Referral sent to [facility]. DVT Prophylaxis: Lovenox Dispo: [facility] here trying to place patient to psychiatric facility Patient is medically cleared for psych evaluation and transport when needed. This patient's psychiatric disorder is contributing to his medical wellbeing. Due to lying in bed for 1 1/2 weeks prior to hospitalization, he has developed a PE. There are no psychiatric specialists inpatient at this facility to help with his psychiatric medication regimen. He has been medically stable, just needing to wear a brace on his left leg and work on non weight bearing status on that leg. His HR is mildly elevated at times due to his PE but this will take time to improve and has mostly been controlled with metoprolol. Improving his mental status would help greatly with overcoming these medical issues. The patient has been voluntary to a psychiatric admission. Review Statement Review Statement: I have personally discussed and reviewed the patient's visit/currently labs/imaging/decision making with Dr. Barrera, my supervising attending. Greater that 50 minutes spent with patient, 50% of the time spent with this patient was devoted to counseling and coordination of care.
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
[2023-10-13 16:05] LABS: ERYTHROCYTE SEDIMENTATION RATE 97 mm/hr (0-15)
[2023-10-13] MEDS: NEURONTIN PO SCH (20:08)
[2023-10-14] MEDS: LOPRESSOR PO SCH ×3 (00:34→05:34)
[2023-10-14] MEDS: TYLENOL PO PRN (01:36)
[2023-10-14 05:22] VITALS: BP 113/70; PULSE 115; RESP 18; TEMP 97.8
== END 2023-10-14 08:55 | disposition short-term general hospital (02) | DRG 540 ==
LOC: MEDSURG B 16:16 → ED 16:16 → MEDSURG B 18:17 → SCU 10-06 12:42
PROVIDERS: ADMIT Hospitalist; ATTEND Physician Assistant
DX: R53.1 Weakness; F12.10 Cannabis abuse, uncomplicated; S82.122A Displaced fracture of lateral condyle of left tibia, initial encounter for closed fracture; F20.9 Schizophrenia, unspecified; R94.5 Abnormal results of liver function studies; R45.851 Suicidal ideations; L03.115 Cellulitis of right lower limb; F06.0 Psychotic disorder with hallucinations due to known physiological condition; R00.0 Tachycardia, unspecified; R20.2 Paresthesia of skin; Y90.5 Blood alcohol level of 100-119 mg/100 ml; I10 Essential (primary) hypertension; F17.210 Nicotine dependence, cigarettes, uncomplicated; E87.6 Hypokalemia; Z20.822 Contact with and (suspected) exposure to COVID-19; F10.139 Alcohol abuse with withdrawal, unspecified; S92.324A Nondisplaced fracture of second metatarsal bone, right foot, initial encounter for closed fracture; M86.172 Other acute osteomyelitis, left ankle and foot

== ENCOUNTER 2024-03-04 09:29 | Observation (INO) ==
--- NOTE | 2024-03-04 10:17 | DI ---
EXAM: RIGHT ANKLE THREE VIEW HISTORY: Fall, pain. COMPARISON: None. FINDINGS: see impression. IMPRESSION: Generalized osteopenia. This limits evaluation for subtle, nondisplaced fractures. Nondisplaced fracture through the medial tibial metaphysis/medial malleolus extending to the tibial plafond. Possible fracture at the tip of the lateral malleolus. Soft tissue edema and tibiotalar joint effusion.
--- NOTE | 2024-03-04 10:20 | DI ---
EXAM: CHEST RADIOGRAPH TECHNIQUE: Single frontal chest radiograph. HISTORY: Chest pain and shortness of breath. COMPARISON: 10/14/2023 FINDINGS: The patient is mildly leaning and rotated to the right. EKG leads project over the chest. No pulmonary infiltrate is identified. No pleural effusion or pneumothorax is seen. Heart size is normal. No acute displaced rib fractures are identified. IMPRESSION: 1. No acute findings in the chest.
--- NOTE | 2024-03-04 10:25 | CT ---
EXAMINATION: HEAD CT WITHOUT CONTRAST HISTORY: Weakness, altered mental status. TECHNIQUE: Noncontrast CT of the brain was performed with images acquired from skull base to vertex. 2-D coronal and sagittal reformatted images were obtained from the axial source images. Contrast Dose: None. CT Dose Reduction Techniques Performed: Yes. COMPARISON: None. FINDINGS: Topogram demonstrates no significant abnormality. Intraparenchymal hemorrhage: None. Parenchyma: Normal gracia-white differentiation. No mass effect or midline shift. Extra-axial spaces and basal cisterns: Normal. Ventricles: Normal size and morphology for age. Paranasal sinuses and mastoid air cells: Visualized portions of paranasal sinuses are clear. Mastoid air cells are clear. Orbits: Normal visualized portions. Sella/Skull Base: Normal. Other: Scalp and visualized soft tissues are normal. Calvarium is normal. IMPRESSION: No acute intracranial process. All CT scans are performed using dose optimization techniques as appropriate to the performed exam an d include at least one of the following: Automated exposure control, adjustment of the mA and/or kV according t o size, and the use of iterative reconstruction technique.
[2024-03-04 10:30] LABS: BASOPHILS # (AUTO) 0.1 K/uL (0-0.2); BASOPHILS % (AUTO) 1.1 % (0.0-3.0); EOSINOPHILS # (AUTO) 0.1 K/ul (0.0-0.7); EOSINOPHILS % (AUTO) 1.3 % (0.0-7.0); HEMATOCRIT 37.1 % (42.0-52.0); IMMATURE GRANULOCYTE % (AUTO) 0.2 % (0.0-5.0); LYMPHOCYTES # (AUTO) 1.6 K/uL (0.60-3.4); MEAN CORPUSCULAR HEMOGLOBIN 37.5 pg (27.0-31.0); MEAN CORPUSCULAR VOLUME 106.9 fl (80.0-94.0); MONOCYTES # (AUTO) 0.7 K/uL (0.4-2.0); MONOCYTES % (AUTO) 10.8 (0-10); NEUTROPHILS # (AUTO) 3.8 K/ul (2.0-6.9); NEUTROPHILS % (AUTO) 61.6 % (42.2-75.2); PLATELET COUNT 160 10^3/uL (140-440); RDW COEFFICIENT OF VARIATION 13.8 % (11.6-14.8); RED BLOOD COUNT 3.47 10^6/ul (4.70-6.10); WHITE BLOOD COUNT 6.23 K/ul (4.2-10.2)
[2024-03-04] MEDS: SODIUM CHLORIDE 1,000 ML IV ONE (10:47)
[2024-03-04 10:48] LABS: ALANINE AMINOTRANSFERASE 46.8 U/L (0-50); ALBUMIN 3.67 g/dL (3.5-5.0); BILIRUBIN,TOTAL 2.58 mg/dL (0.2-1.3); CALCIUM 8.38 mg/dL (8.4-10.2); CHLORIDE 96.4 mmol/L (98-107); CREATININE 0.61 mg/dL (0.60-1.10); GLUCOSE 130.3 mg/dL (74-106); SODIUM 137.5 mmol/L (134.5-145)
[2024-03-04 11:14] LABS: BLOOD UREA NITROGEN < 2.0 mg/dL (9-20); TROPONIN I < 0.012 ng/ml (0.0000-0.120)
[2024-03-04 11:37] LABS: BLOOD ALCOHOL < 10.0 mg/dL (0.0-50.0)
[2024-03-04] MEDS: K-DUR PO STA (11:40)
[2024-03-04] MEDS: MORPHINE 4 MG/ML SYRINGE IVP ONE ×2 (11:41→14:41)
[2024-03-04] MEDS: MAGNESIUM SULFATE 1 GM/2 ML VIAL IVP ONE (13:11)
[2024-03-04 13:23] LABS: BILIRUBIN,URINE 1+ (NEGATIVE); CLARITY,URINE Clear (CLEAR); COLOR,URINE Dark (YELLOW); GLUCOSE, URINE (UA) Negative (NEGATIVE); KETONES,URINE Negative (NEGATIVE); LEUKOCYTE ESTERASE ,URINE Negative (NEGATIVE); NITRITE,URINE Negative (NEGATIVE); PROTEIN,URINE Negative (NEGATIVE); URINE, BLOOD Negative (NEGATIVE); UROBILINOGEN,URINE >=8.0 (0.2)
[2024-03-04 13:53] LABS: AMPHETAMINE SCREEN,URINE NEGATIVE (NEGATIVE); BARBITURATE SCREEN,URINE NEGATIVE (NEGATIVE); BENZODIAZEPINES SCREEN,URINE NEGATIVE (NEGATIVE); CANNABINOID SCREEN,URINE POSITIVE (NEGATIVE); COCAIN SCREEN,URINE NEGATIVE (NEGATIVE); METHADONE URINE SCREEN NEGATIVE (NEGATIVE); METHAMPHETAMINES SCREEN,URINE NEGATIVE (NEGATIVE); OPIATE SCREEN,URINE POSITIVE (NEGATIVE); OXYCODONE URINE SCREEN NEGATIVE (NEGATIVE); PHENCYCLIDINE SCREEN,URINE NEGATIVE (NEGATIVE); TRICYCLIC ANTIDEPRESSANTS URIN NEGATIVE (NEGATIVE)
[2024-03-04 14:43] LABS: APPEARANCE,CSF CLEAR (CLEAR); COLOR,CSF COLORLESS (COLORLESS); WHITE BLOOD CELL,CSF 0 cells/mm (0-5)
[2024-03-04 14:44] LABS: RED BLOOD CELL,CSF 3 cells/mm (0-0)
[2024-03-04 16:39] LABS: TOTAL PROTEIN,CSF 40.4
--- NOTE | 2024-03-04 16:43 | ED.PDOC ---
General ED Provider: Dr. JENNIFER STARR DO Chief Complaint: Ankle Pain/Injury Stated Complaint: 38-year-old male presents to the ER with multiple complaints. He primarily complains of right ankle pain. He states that he has had generalized weakness for several weeks if not months. His has to help him get around most all of the time. He says that he has some days are better than others and tries to go to work but generally feels as though his legs are far too weak to get around. He also states that he has lost a lot of weight, about 30 pounds over the last 8 months or so. He has had several falls. Denies saddle anesthesia, bowel or bladder incontinence or retention or radiculopathy. Denies recent illness such as fever, cough, chest pain, shortness of breath or abdominal pain. Patient has a history of alcohol abuse. He states he also has a remote history of a back injury as a child when he was doing flips on a trampoline and fell onto his head. Time Seen by Provider: 03/04/24 09:49 Information Source: Patient Nursing and Triage Documentation Reviewed and Agree: Yes What is Opioid Naive?: *Opioid Naive implies the patient is not already taking opioids or not chronically receiving opioids on a daily basis. *PRN dosing is not "usually" associated with tolerance. *Patients are at higher risk of over-sedation and aspiration. What is Opioid Tolerant?: *Opioid Tolerance implies less than the expected response to an opioid. *Acquired tolerance is defined by the patient taking 60mg of oral morphine daily (or equianalgesic dose of another opioid) for 1 week or more. *Often associated with chronic pain. *May take more than usual dose to achieve desired pain control. 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.81 - Schizophreniform disorder (ICD-10) Mood disorder (10/09/18) F39 - Unspecified mood [affective] disorder (ICD-10) JENNY (generalized anxiety disorder) (09/16/15) F41.1 - Generalized anxiety disorder (ICD-10) Meningitis G03.9 - Meningitis, unspecified (ICD-10) Depression Post traumatic stress disorder F32.9 - Major depressive disorder, single episode, unspecified (ICD-10) Family History Grandfather/Grandmother Diabetes Alcoholism Hypertension FATHER Alcoholism Other Kidney failure Social History Smoking and tobacco status: Current every day smoker Tobacco type: cigarettes Smoking packs per day: 0.5 Tobacco: How many years used: 20 Quit status: considering quitting Alcohol intake: current Alcohol intake frequency: 3 or more drinks per day Alcohol type: beer Substance use type: marijuana and other Details: sometimes uses other drugs but nothing consistantly Kyra/jew: BAPTISM Special kyra needs: No Agree to transfusion: Yes Adopted: No Caregiver/support person: Yes (children) Household members: children and other Other Household Members: mother Housing: apartment Marital status: X LEGALLY Lives independently: No Number of children: 2 Highest education level completed: 9th grade Financial difficulty paying for basics: very hard Current occupational status: unemployed Pets and animals: No Leisure activites: exercise and music History of recent travel: No Sexually active: Yes Do you think of yourself as: straight/heterosexual Current gender identity: male Seatbelt use: always Drives intoxicated or rides with intoxicated local company flatbed truck driver: No Current diet type/program: regular Water heater temperature set < 120 degrees: Yes Working smoke detector in home: Yes Fire extinguisher in home: Yes Carbon monoxide detector in home: No Firearms in home: No Surgical History Status post hernia repair as a child Z98.890 - Other specified postprocedural states (ICD-10) Physical Exam Physical Exam Appearance: Reports Well-appearing, Thin and Cachectic Pain Distress: Mild Eyes: Reports GUCCI, EOMI and Conjunctiva clear ENT: Reports Nose normal and Oropharynx normal Neck: Supple Respiratory: Reports Airway patent, Breath sounds clear and Respirations nonlabored Cardiovascular: Reports RRR (Tachycardic on initial arrival) and Pulses normal GI/: Reports Soft, Nontender and No Organomegaly Musculoskeletal: Reports Normal strength (Patient is able to voluntarily move both lower extremities to pick his legs up. He does seem weak in these motions and seems uncomfortable when he does. Muscle strength 4/5 bilaterally. Upper extremities appear and seem to be full strength bilaterally. Legs are quite thin and appear emaciated) and Other (Right foot has ecchymosis between the toes. Edema about the ankle. Tenderness to the ankle mortise) Skin: Reports Warm, Dry and Normal color Neurological: Reports Sensation intact, Motor intact, Reflexes intact (L4 and S1 2/4 bilaterally. No clonus. Gross sensation intact in all dermatomal distributions of the lower extremity. Muscle weakness is stated above), Cranial nerves intact, Alert and Oriented Psychiatric: Reports Affect appropriate and Mood appropriate Interpretation EKG Interpretation EKG Interpretation By: ED Physician Time of EKG #1: 10:19 Rate: Tachy Rhythm: Sinus Ectopy: None [place]: NL ST Segment: Normal Interpretation: non ischemic ekg Procedures Splinting Location: Right ankle Hand-Made Type: Orthoglass Splint: [place] splint Pre-Proc Neuro Vasc Exam: Normal Post-Proc Neuro Vasc Exam: Normal Lumbar Puncture Position of Patient: Lateral Decubitis Local Anesthetic Used: Yes Gauge of Spinal needle: 18 Lumbar Space Used for Insertion: L4/L5 Number of Attempts: 2 Spinal Fluid Obtained: Yes Fluid Description: Present Clear; Absent Cloudy, Bloody or Xanthochromic Course Course 03/04/24 10:26 03/04/24 10:26 Orders, Labs, Meds: Lab Review 03/04/24 03/04/24 03/04/24 10:20 10:26 13:14 WBC 6.23 RBC 3.47 L Hgb 13.0 L Hct 37.1 L MCV 106.9 H MCH 37.5 H MCHC 35.0 RDW Coeff of Juanito 13.8 Plt Count 160 Immature Gran % (Auto) 0.2 Neut % (Auto) 61.6 Lymph % (Auto) 25.0 [place] % (Auto) 10.8 H Eos % (Auto) 1.3 Baso % (Auto) 1.1 Neut # (Auto) 3.8 Lymph # (Auto) 1.6 [place] # (Auto) 0.7 Eos # (Auto) 0.1 Baso # (Auto) 0.1 Immature Gran # (Auto) 0.0 Sodium 137.5 Potassium 2.20 L* Chloride 96.4 L Carbon Dioxide 34.0 H Anion Gap 9.30 BUN < 2.0 L Creatinine 0.61 Estimated GFR (MDRD) 149.00 BUN/Creatinine Ratio 3.27 Glucose 130.3 H Calcium 8.38 L Magnesium 0.90 L* Total Bilirubin 2.58 H AST 144.0 H ALT 46.8 Alkaline Phosphatase 93.0 Total Creatine Kinase 55.1 Troponin I < 0.012 Total Protein 7.00 Albumin 3.67 Globulin 3.33 Albumin/Globulin Ratio 1.10 Urine Color Dark Urine Clarity Clear Urine pH 7.0 Ur Specific [place] 1.015 Urine Protein Negative Urine Glucose (UA) Negative Urine Ketones Negative Urine Blood Negative Urine Nitrite Negative Urine Bilirubin 1+ H Urine Urobilinogen >=8.0 Ur Leukocyte Esterase Negative CSF Appearance CSF Color CSF WBC Comment CSF RBC Comment CSF Neutrophils % CSF Lymphocytes % CSF Monocytes % CSF Eosinophils % CSF Basophils % CSF Glucose CSF Total Protein Urine Opiates Screen Positive H Ur Oxycodone Screen Negative Urine Methadone Screen Negative Ur Barbiturates Screen Negative U Tricyclic Antidepress Negative Ur Phencyclidine Scrn Negative Ur Amphetamine Screen Negative U Methamphetamines Scrn Negative U Benzodiazepines Scrn Negative Urine Cocaine Screen Negative U Cannabinoids Screen Positive H Plasma/Serum Alcohol < 10.0 03/04/24 14:00 WBC RBC Hgb Hct MCV MCH MCHC RDW Coeff of Juanito Plt Count Immature Gran % (Auto) Neut % (Auto) Lymph % (Auto) [place] % (Auto) Eos % (Auto) Baso % (Auto) Neut # (Auto) Lymph # (Auto) [place] # (Auto) Eos # (Auto) Baso # (Auto) Immature Gran # (Auto) Sodium Potassium Chloride Carbon Dioxide Anion Gap BUN Creatinine Estimated GFR (MDRD) BUN/Creatinine Ratio Glucose Calcium Magnesium Total Bilirubin AST ALT Alkaline Phosphatase Total Creatine Kinase Troponin I Total Protein Albumin Globulin Albumin/Globulin Ratio Urine Color Urine Clarity Urine pH Ur Specific [place] Urine Protein Urine Glucose (UA) Urine Ketones Urine Blood Urine Nitrite Urine Bilirubin Urine Urobilinogen Ur Leukocyte Esterase CSF Appearance Clear CSF Color Colorless CSF WBC Comment 0 CSF RBC Comment 3 H CSF Neutrophils % CSF Lymphocytes % CSF Monocytes % CSF Eosinophils % CSF Basophils % CSF Glucose 68 CSF Total Protein 40.4 Urine Opiates Screen Ur Oxycodone Screen Urine Methadone Screen Ur Barbiturates Screen U Tricyclic Antidepress Ur Phencyclidine Scrn Ur Amphetamine Screen U Methamphetamines Scrn U Benzodiazepines Scrn Urine Cocaine Screen U Cannabinoids Screen Plasma/Serum Alcohol Orders Category Date Time Status ADMIT PATIENT INPATIENT .TO MEDS[facility] (MONITORED BED) ADMISSION 03/04/24 18:50 Ordered EKG-(ED ONLY) Stat CARDIO 03/04/24 09:50 Completed TELEMETRY MONITORING TELE CARE 03/04/24 18:50 Ordered BLOOD ALCOHOL Stat LAB 03/04/24 10:26 Completed CBC W/ AUTO DIFF Stat LAB 03/04/24 10:26 Completed CEREBROSPINAL FLUID CULTURE Urgent LAB 03/04/24 14:00 Received CMP [COMPREHENSIVE METABOLIC PANEL] Stat LAB 03/04/24 10:26 Completed CPK [CREATINE KINASE] Stat LAB 03/04/24 10:20 Completed CSF CELL COUNT WITH DIFF Routine LAB 03/04/24 14:00 Completed DRUG SCREEN (RAPID FOR ED) [DRUG SCREEN, URINE, RAPID] LAB 03/04/24 13:14 Completed Stat GLUCOSE,CSF Stat LAB 03/04/24 14:00 Completed GRAM STAIN Routine LAB 03/04/24 14:00 Completed MAGNESIUM Stat LAB 03/04/24 10:26 Completed TOTAL PROTEIN,CSF Stat LAB 03/04/24 14:00 Completed TROPONIN I Stat LAB 03/04/24 10:26 Completed URINALYSIS C & S IF INDICATED Stat LAB 03/04/24 13:14 Completed Magnesium Sulfate [Magnesium Sulfate 1 gm/2 ml Vial] Meds 03/04/24 11:40 Discontinued 1 gm IVP ONCE ONE Morphine Sulfate [Morphine 4 mg/ml Syringe] Meds 03/04/24 11:31 Discontinued 4 mg IVP ONCE ONE Morphine Sulfate [Morphine 4 mg/ml Syringe] Meds 03/04/24 14:16 Discontinued 4 mg IVP ONCE ONE Potassium Chloride [K-Dur] Meds 03/04/24 11:20 Discontinued 40 meq PO ONCE STA Potassium Chloride [Potassium Chloride 20 Meq/100 ml Meds 03/04/24 17:38 Active Premix] 40 meq in 200 ml IV ONCE Sodium Chloride 0.9% [Sodium Chloride] 1,000 ml Meds 03/04/24 09:50 Discontinued IV BOLUS ANKLE, RIGHT MIN 3 VIEWS Stat RADS 03/04/24 09:51 Completed CHEST, 1V AP ONLY Stat RADS 03/04/24 09:[address] HEAD W/O CONTRAST Stat RADS 03/04/24 09:52 Completed Medications Generic Name Dose Route Start Last Admin Trade Name Freq PRN Reason Stop Dose Admin Potassium Chloride 40 meq in 200 mls @ 50 mls/hr 03/04/24 17:38 Potassium Chloride 20 Meq/100 Ml Premix IV 03/04/24 21:37 ONCE ONE Discontinued Medications Generic Name Dose Route Start Last Admin Trade Name Manuel PRN Reason Stop Dose Admin Sodium Chloride 1,000 mls @ 1,000 mls/hr 03/04/24 09:50 03/04/24 13:10 Sodium Chloride IV 03/04/24 10:49 Infused BOLUS ONE Infusion Magnesium Sulfate 1 gm 03/04/24 11:40 03/04/24 13:11 Magnesium Sulfate Vial 1 Gm/2 Ml Vial IVP 03/04/24 11:41 1 gm ONCE ONE Administration Morphine Sulfate 4 mg 03/04/24 11:31 03/04/24 11:41 Morphine Sulfate 4 Mg/Ml Syringe IVP 03/04/24 11:32 4 mg ONCE ONE Administration Morphine Sulfate 4 mg 03/04/24 14:16 03/04/24 14:41 Morphine Sulfate 4 Mg/Ml Syringe IVP 03/04/24 14:17 4 mg ONCE ONE Administration Potassium Chloride 40 meq 03/04/24 11:20 03/04/24 11:40 Potassium Chloride 20 Meq Tab PO 03/04/24 11:21 40 meq ONCE STA Administration Vital Signs: Temp Pulse Resp BP Pulse Ox 03/04/24 14:37 89 16 114/78 97 03/04/24 11:47 105 H 16 145/75 H 98 03/04/24 09:41 98.2 F 125 H 20 143/106 H 96 Discharge Plan Discharge Patient Disposition: ADMITTED INPATIENT Discharge Problem: Acute hypokalemia, Hypomagnesemia, History of ETOH abuse, Closed fracture of distal end of right tibia, Muscular deconditioning, Elevated liver enzymes Prescriptions: No Action folic acid 1 mg Tablet 1 mg PO DAILY Qty: 1 0RF gabapentin 300 mg Capsule 300 mg PO 2100 Qty: 1 0RF lorazepam 1 mg Tablet 1 mg PO BID Qty: 1 0RF metoprolol tartrate 25 mg Tablet 50 mg PO Q6HR Qty: 1 0RF risperidone 1 mg Tablet 1 mg PO Q12HR Qty: 1 0RF thiamine HCl (vitamin B1) [Vitamin B-1] 100 mg Tablet 100 mg PO DAILY Qty: 1 0RF Eliquis 5 mg tablet See Rx Instructions .ROUTE .COMPLEX Qty: 1 0RF Rx Instructions: Take 10 mg bid x10 days then 5 mg bid Did you review [place] [employer] for ALL controlled substances?: Not Applicable ED Provider: JENNIFER STARR Condition: Stable Physician Progress Note: 38-year-old male presents to the ER with generalized weakness and apparent inability to walk. He apparently is able to stand on his own but unable to walk under his own pressure. Recently hospitalized and sent to a rehab facility. Since discharge mainly sedentary. He is afebrile nontoxic doubt systemic infection. Reflexes normal. Strength is reduced in the lower extremities. No other focal neurologic deficit. Exam not consistent with cauda equina, discitis, spinal abscess. Concern for muscle wasting diseases since he had his progressive weakness. Patient also reports a fall with right ankle pain and x- ray subsequently positive for fracture. River splint placed. Neurovascularly intact. Given concern for muscle wasting diseases, spinal tap conducted/obtained. Clear colorless fluid. Awaiting glucose and protein still. Laboratory workup reveals significant hypokalemia as well as hypomagnesemia. Patient is a known alcohol user at least 1 pint per day. I suspect these abnormalities are secondary to his alcohol use. These electrolyte abnormalities can also be a contributing factor to his presenting symptoms. CPK ordered in the case of rhabdo, this was negative. Urinalysis does demonstrate some bilirubin as well as labs demonstrating elevated LFTs and bilirubin. He has no abdominal pain. Doubt biliary etiology. Suspect secondary to alcohol use. Patient will require hospitalization for his electrolyte abnormalities and a suspect he would benefit from some long-term rehabilitation situation. Muscle wasting diseases not completely ruled out to include but not limited to ALS even. He has no family history of neurologic diseases however. Otherwise, I feel this patient is experiencing muscle atrophy and wasting secondary to his alcohol abuse and subsequent electrolyte abnormalities.
[2024-03-04] MEDS ORDERED: THIAMINE PO ONE (19:11)
[2024-03-04] MEDS ORDERED: FOLIC ACID IVP ONE (19:11)
[2024-03-04] MEDS ORDERED: TYLENOL PO PRN (19:14)
[2024-03-04] MEDS ORDERED: SODIUM CHLORIDE 0.9%-KCL 20 MEQ 1,000 ML IV SCH (19:30)
[2024-03-04 20:15] LABS: CALCIUM 8.12 mg/dL (8.4-10.2); CARBON DIOXIDE 33.1 mmol/L (22-30.0); CHLORIDE 97.4 mmol/L (98-107); CREATININE 0.51 mg/dL (0.60-1.10); GLUCOSE 97.7 mg/dL (74-106); POTASSIUM 3.44 mmol/L (3.5-5.1); SODIUM 135.5 mmol/L (134.5-145)
[2024-03-04 20:16] LABS: BLOOD UREA NITROGEN < 2.0 mg/dL (9-20)
[2024-03-04 20:57] LABS: SARS COV-2 RNA RAPID NAAT NEGATIVE (NEGATIVE)
[2024-03-04] MEDS: LACTATED RINGERS 1,000 ML IV SCH (22:04)
[2024-03-04] MEDS: MAGNESIUM SULFATE 1 GM/100 ML D5W 1 GM/100 ML BAG IV ONE (22:09)
[2024-03-04 22:13] VITALS: BMI 22.1
[2024-03-04] MEDS: FOLIC ACID PO SCH (22:16)
[2024-03-04] MEDS: THIAMINE PO ONE (22:16)
[2024-03-04] MEDS: MOTRIN PO PRN (22:48)
[2024-03-04] MEDS: LOPRESSOR PO SCH (22:48)
[2024-03-04] MEDS: ZOFRAN 4 MG/2 ML IVP PRN (22:49)
[2024-03-04] MEDS: POTASSIUM CHLORIDE 20 MEQ/100 ML PREMIX 40 MEQ/200 ML BAG IV ONE (23:21)
[2024-03-05 05:20] LABS: BASOPHILS # (AUTO) 0.1 K/uL (0-0.2); BASOPHILS % (AUTO) 1.1 % (0.0-3.0); EOSINOPHILS # (AUTO) 0.2 K/ul (0.0-0.7); EOSINOPHILS % (AUTO) 3.2 % (0.0-7.0); HEMATOCRIT 32.9 % (42.0-52.0); HEMOGLOBIN 11.3 g/dl (14.0-18.0); IMMATURE GRANULOCYTE % (AUTO) 0.4 % (0.0-5.0); LYMPHOCYTES % (AUTO) 38.1 (10.0-50.0); MEAN CORPUSCULAR HEMOGLOBIN 37.8 pg (27.0-31.0); MEAN CORPUSCULAR HGB CONC 34.3 (31.8-35.4); MONOCYTES # (AUTO) 0.5 K/uL (0.4-2.0); MONOCYTES % (AUTO) 9.7 (0-10); NEUTROPHILS # (AUTO) 2.5 K/ul (2.0-6.9); NEUTROPHILS % (AUTO) 47.5 % (42.2-75.2); PLATELET COUNT 126 10^3/uL (140-440); RDW COEFFICIENT OF VARIATION 13.5 % (11.6-14.8); RED BLOOD COUNT 2.99 10^6/ul (4.70-6.10); WHITE BLOOD COUNT 5.28 K/ul (4.2-10.2)
[2024-03-05 05:32] LABS: ALANINE AMINOTRANSFERASE 47.9 U/L (0-50); ALBUMIN 3.1 g/dL (3.5-5.0); ALKALINE PHOSPHATASE 82.7 U/L (38-126); ASPARTATE AMINO TRANSFERASE 170.3 U/L (17-59); BILIRUBIN,TOTAL 4.29 mg/dL (0.2-1.3); BLOOD UREA NITROGEN 3.3 mg/dL (9-20); CALCIUM 8.07 mg/dL (8.4-10.2); CARBON DIOXIDE 34.1 mmol/L (22-30.0); CHLORIDE 96.5 mmol/L (98-107); CREATININE 0.66 mg/dL (0.60-1.10); GLUCOSE 110.5 mg/dL (74-106); MAGNESIUM 1.62 mg/dL (1.6-2.3); SODIUM 134.8 mmol/L (134.5-145); TOTAL PROTEIN 6.09 g/dL (6.3-8.2)
[2024-03-05 05:34] LABS: POTASSIUM 2.75 mmol/L (3.5-5.1)
[2024-03-05] MEDS: K-DUR PO ONE ×2 (06:16→14:47)
[2024-03-05 10:09] VITALS: TEMP 97.5
[2024-03-05 12:42] LABS: BLOOD UREA NITROGEN 2.2 mg/dL (9-20); CALCIUM 8.15 mg/dL (8.4-10.2); CHLORIDE 100.2 mmol/L (98-107); CREATININE 0.56 mg/dL (0.60-1.10); GLUCOSE 104.3 mg/dL (74-106); POTASSIUM 3.25 mmol/L (3.5-5.1); SODIUM 137.2 mmol/L (134.5-145)
--- NOTE | 2024-03-05 13:27 | PCM.SS ---
Provider Provider: STEPHANI WARD, [facility] Admission Date Admission Date: 03/04/24 Discharge Date Discharge Date: 03/05/24 Chief Complaint Reason For Visit: HYPO K,HYPO MAG,WEAKNESS,MUSCLE WASTING History of Present Illness History of Present Illness: Admitted 03/04/24 20:40, this 38 year old /WHITE/M presented to the ER with the complaint of "can't walk". Per Dr. Pagan, family member with patient reported that he fell out of bed a couple days ago and had been complaining of R leg pain. Patient has pmh of schizophrenia and is noncomplaint with medications. He also has hx of etoh abuse and had been drinking at least 1/2 a pint the day prior. Reported to nurses that he was drinking alcohol and taking lortabs off the street to deal with the pain. Found to have a right tibial fracture and was splinted in ER. He was found to have a 2.2 potassium and 0.9 magnesium. Due to patient stating that he cannot walk and had been admitted prior with same issue, Dr. Pagan completed LP and lab findings were found to be negative. He was admitted to med/surg observation. 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) F20.81 - Schizophreniform disorder (ICD-10) Mood disorder (10/09/18) F39 - Unspecified mood [affective] disorder (ICD-10) JENNY (generalized anxiety disorder) (09/16/15) F41.1 - Generalized anxiety disorder (ICD-10) Meningitis G03.9 - Meningitis, unspecified (ICD-10) Depression Post traumatic stress disorder F32.9 - Major depressive disorder, single episode, unspecified (ICD-10) Surgical History Status post hernia repair as a child Z98.890 - Other specified postprocedural states (ICD-10) Family History Grandfather/Grandmother Diabetes Alcoholism Hypertension FATHER Alcoholism Other Kidney failure Social History Smoking and tobacco status: Current every day smoker Tobacco type: cigarettes Smoking packs per day: 0.5 Tobacco: How many years used: 20 Quit status: considering quitting Alcohol intake: current Alcohol intake frequency: 3 or more drinks per day Alcohol type: beer Substance use type: marijuana and other Details: sometimes uses other drugs but nothing consistantly Kyra/gnosticist: JUDAISM Special kyra needs: No Agree to transfusion: Yes Adopted: No Caregiver/support person: Yes (children) Household members: children and other Other Household Members: mother Housing: apartment Marital status: X LEGALLY Lives independently: No Number of children: 2 Highest education level completed: 9th grade Financial difficulty paying for basics: very hard Current occupational status: unemployed Pets and animals: No Leisure activites: exercise and music History of recent travel: No Sexually active: Yes Do you think of yourself as: straight/heterosexual Current gender identity: male Seatbelt use: always Drives intoxicated or rides with intoxicated oil transport driver: No Current diet type/program: regular Water heater temperature set < 120 degrees: Yes Working smoke detector in home: Yes Fire extinguisher in home: Yes Carbon monoxide detector in home: No Firearms in home: No Medications Mecications: Medications at Discharge (Home Meds & RX) apixaban 5 mg tablet (Eliquis) See Rx Instructions .Route .COMPLEX #1 tab 10/13/23 folic acid 1 mg tablet 1 mg PO DAILY #1 tab 10/13/23 gabapentin 300 mg capsule 300 mg PO 2100 #1 cap 10/13/23 lorazepam 1 mg tablet 1 mg PO BID #1 tab 10/13/23 metoprolol tartrate 25 mg tablet 50 mg (2 x 25 mg) PO Q6HR #1 tab 10/13/23 risperidone 1 mg tablet 1 mg PO Q12HR #1 tab 10/13/23 thiamine HCl (vitamin B1) 100 mg tablet (Vitamin B-1) 100 mg PO DAILY #1 tab 10/13/23 Allergies Allergies Allergy/AdvReac Type Severity Reaction Status Date / Time Penicillins AdvReac Hives Verified 03/04/24 09:40 Review of Systems Constitutional: Reports Weakness Head: Reports Normocephalic Eyes: Reports No symptoms Ears: Reports No symptoms Nose: Reports No symptoms Mouth: Reports No symptoms Throat: Reports No symptoms Cardiovascular: Reports No symptoms Respiratory: Reports No symptoms Gastrointestinal: Reports No symptoms Genitourinary: Reports No Symptoms Musculoskeletal: Reports Muscle Pain (cramps) and Other (right ankle pain) Endocrine: Reports No symptoms Hematology: Reports No symptoms Immunology: Reports No symptoms Neurological: Reports No symptoms Psychiatric: Reports No symptoms Physical Examination Appearance: Positive No Apparent Distress and Thin Head: Positive Normocephalic Neck: Positive Supple, Non-Tender and Trachea Midline Heart: Positive RRR and No Murmurs Respiratory: Positive Breath Sounds Clear, Bilaterally, Breath Sounds Equal and Respirations Nonlabored GI/: Positive Soft, Nontender, Bowel sounds normal and No Distention Extremities: Positive Pedal Pulses Palpable Bilaterally and Other (splint to R leg, neurovascularly intact) Neurological: Positive Motor Intact, Reflexes Intact, Alert, Oriented and Other (at baseline mental status) Vital Signs (Last 4 Hours) Vital Signs Last 4 Hours: Vital Signs: Last 4 Hours 03/05/24 10:00 03/05/24 10:00 03/05/24 11:00 Temperature 97.5 F L Temperature Source Temporal Artery Scan Pulse Rate 69 Respiratory Rate 16 Blood Pressure 118/82 Blood Pressure Mean 94 Blood Pressure Location Right Arm O2 Sat by Pulse Oximetry 96 Oxygen Delivery Method Room Air Room Air Room Air 03/05/24 11:50 03/05/24 12:50 Temperature Temperature Source Pulse Rate Respiratory Rate Blood Pressure Blood Pressure Mean Blood Pressure Location O2 Sat by Pulse Oximetry Oxygen Delivery Method Room Air Room Air Labs This Visit Labs This Visit: Labs This Visit 03/04/24 03/04/24 03/04/24 10:20 10:26 13:14 WBC 6.23 RBC 3.47 L Hgb 13.0 L Hct 37.1 L MCV 106.9 H MCH 37.5 H MCHC 35.0 RDW Coeff of Juanito 13.8 Plt Count 160 Immature Gran % (Auto) 0.2 Neut % (Auto) 61.6 Lymph % (Auto) 25.0 Logan % (Auto) 10.8 H Eos % (Auto) 1.3 Baso % (Auto) 1.1 Neut # (Auto) 3.8 Lymph # (Auto) 1.6 Logan # (Auto) 0.7 Eos # (Auto) 0.1 Baso # (Auto) 0.1 Immature Gran # (Auto) 0.0 Sodium 137.5 Potassium 2.20 L* Chloride 96.4 L Carbon Dioxide 34.0 H Anion Gap 9.30 BUN < 2.0 L Creatinine 0.61 Estimated GFR (MDRD) 149.00 BUN/Creatinine Ratio 3.27 Glucose 130.3 H Calcium 8.38 L Magnesium 0.90 L* Total Bilirubin 2.58 H AST 144.0 H ALT 46.8 Alkaline Phosphatase 93.0 Total Creatine Kinase 55.1 Troponin I < 0.012 Total Protein 7.00 Albumin 3.67 Globulin 3.33 Albumin/Globulin Ratio 1.10 Urine Color Dark Urine Clarity Clear Urine pH 7.0 Ur Specific [place] 1.015 Urine Protein Negative Urine Glucose (UA) Negative Urine Ketones Negative Urine Blood Negative Urine Nitrite Negative Urine Bilirubin 1+ H Urine Urobilinogen >=8.0 Ur Leukocyte Esterase Negative CSF Appearance CSF Color CSF WBC Comment CSF RBC Comment CSF Neutrophils % CSF Lymphocytes % CSF Monocytes % CSF Eosinophils % CSF Basophils % CSF Glucose CSF Total Protein Urine Opiates Screen Positive H Ur Oxycodone Screen Negative Urine Methadone Screen Negative Ur Barbiturates Screen Negative U Tricyclic Antidepress Negative Ur Phencyclidine Scrn Negative Ur Amphetamine Screen Negative U Methamphetamines Scrn Negative U Benzodiazepines Scrn Negative Urine Cocaine Screen Negative U Cannabinoids Screen Positive H Plasma/Serum Alcohol < 10.0 SARS CoV-2 RNA Rapid JULI 03/04/24 03/04/24 03/04/24 14:00 20:00 20:40 WBC RBC Hgb Hct MCV MCH MCHC RDW Coeff of [place] Plt Count Immature Gran % (Auto) Neut % (Auto) Lymph % (Auto) Logan % (Auto) Eos % (Auto) Baso % (Auto) Neut # (Auto) Lymph # (Auto) Logan # (Auto) Eos # (Auto) Baso # (Auto) Immature Gran # (Auto) Sodium 135.5 Potassium 3.44 L Chloride 97.4 L Carbon Dioxide 33.1 H Anion Gap 8.44 BUN < 2.0 L Creatinine 0.51 L Estimated GFR (MDRD) 183.00 BUN/Creatinine Ratio 3.92 Glucose 97.7 Calcium 8.12 L Magnesium 1.49 L Total Bilirubin AST ALT Alkaline Phosphatase Total Creatine Kinase Troponin I Total Protein Albumin Globulin Albumin/Globulin Ratio Urine Color Urine Clarity Urine pH Ur Specific [place] Urine Protein Urine Glucose (UA) Urine Ketones Urine Blood Urine Nitrite Urine Bilirubin Urine Urobilinogen Ur Leukocyte Esterase CSF Appearance Clear CSF Color Colorless CSF WBC Comment 0 CSF RBC Comment 3 H CSF Neutrophils % CSF Lymphocytes % CSF Monocytes % CSF Eosinophils % CSF Basophils % CSF Glucose 68 CSF Total Protein 40.4 Urine Opiates Screen Ur Oxycodone Screen Urine Methadone Screen Ur Barbiturates Screen U Tricyclic Antidepress Ur Phencyclidine Scrn Ur Amphetamine Screen U Methamphetamines Scrn U Benzodiazepines Scrn Urine Cocaine Screen U Cannabinoids Screen Plasma/Serum Alcohol SARS CoV-2 RNA Rapid JULI Negative 03/05/24 03/05/24 05:14 12:25 WBC 5.28 RBC 2.99 L Hgb 11.3 L Hct 32.9 L MCV 110.0 H MCH 37.8 H MCHC 34.3 RDW Coeff of Juanito 13.5 Plt Count 126 L Immature Gran % (Auto) 0.4 Neut % (Auto) 47.5 Lymph % (Auto) 38.1 Logan % (Auto) 9.7 Eos % (Auto) 3.2 Baso % (Auto) 1.1 Neut # (Auto) 2.5 Lymph # (Auto) 2.0 Logan # (Auto) 0.5 Eos # (Auto) 0.2 Baso # (Auto) 0.1 Immature Gran # (Auto) 0.0 Sodium 134.8 137.2 Potassium 2.75 L* 3.25 L Chloride 96.5 L 100.2 Carbon Dioxide 34.1 H 33.0 H Anion Gap 6.95 7.25 BUN 3.3 L 2.2 L Creatinine 0.66 0.56 L Estimated GFR (MDRD) 136.00 164.00 BUN/Creatinine Ratio 5.00 3.92 Glucose 110.5 H 104.3 Calcium 8.07 L 8.15 L Magnesium 1.62 Total Bilirubin 4.29 H D AST 170.3 H D ALT 47.9 Alkaline Phosphatase 82.7 Total Creatine Kinase Troponin I Total Protein 6.09 L Albumin 3.10 L Globulin 2.99 Albumin/Globulin Ratio 1.03 Urine Color Urine Clarity Urine pH Ur Specific [place] Urine Protein Urine Glucose (UA) Urine Ketones Urine Blood Urine Nitrite Urine Bilirubin Urine Urobilinogen Ur Leukocyte Esterase CSF Appearance CSF Color CSF WBC Comment CSF RBC Comment CSF Neutrophils % CSF Lymphocytes % CSF Monocytes % CSF Eosinophils % CSF Basophils % CSF Glucose CSF Total Protein Urine Opiates Screen Ur Oxycodone Screen Urine Methadone Screen Ur Barbiturates Screen U Tricyclic Antidepress Ur Phencyclidine Scrn Ur Amphetamine Screen U Methamphetamines Scrn U Benzodiazepines Scrn Urine Cocaine Screen U Cannabinoids Screen Plasma/Serum Alcohol SARS CoV-2 RNA Rapid JULI Microbiology This Visit 03/04/24 14:00 Cerebral Spinal Fluid CSF Culture - Preliminary 03/04/24 14:00 Cerebral Spinal Fluid Gram Stain - Final Imaging Imaging: EXAM: RIGHT ANKLE THREE VIEW IMPRESSION: Generalized osteopenia. This limits evaluation for subtle, nondisplaced fractures. Nondisplaced fracture through the medial tibial metaphysis/medial malleolus extending to the tibial plafond. Possible fracture at the tip of the lateral malleolus. Soft tissue edema and tibiotalar joint effusion. Review Review Statement: I have independently reviewed and interpreted the labs/EKGs/imaging that were ordered by the ER provider. I have reviewed all outside records that are available currently in our EMR including imaging/notes/labs from previous visits. Plan Reccomendations/Plan: 1. Acute Hypokalemia - replacement given in ER and continued, improved from 2.2 to 3.44 to 2.75 to 3.2. Patient has chronic hypokalemia due to etoh abuse. Given additional replacement and rx for daily x 1 week 2. Acute Hypomagnesemia - replacement given x2, resolved 3. Acute distal right tibia fracture - orthopedic referral sent to [facility] until otherwise instructed by ortho, sent home with crutches 4. ETOH abuse - no DT noted during stay, discussed cessation 5. Atrial fibrillation - was mildly tachycardic initially during admission, gave previously prescribed metoprolol and resolved tachycardia, sent new rx to pharmacy Patient has not been taking home medications due to cost. Additional Planning: Case discussed with ED Physician, Dr. Pagan. DVT Prophylaxis: Patient refuses to take eliquis due to cost upon discharge Smoking Cessation: 5 minutes spent discussing smoking cessation. Disposition: Admit to: Med/Surg Observation Full code. Discussed Plan of Care with Dr. Trena Barrera. If patient discharged with Left Ventricular Systolic Dysfunction: NA Discharged with a beta praveena? [] If no, why not? [] Discharged with an marcia/arb? [] If no, why not? [] DIAGNOSIS: HYPOKALEMIA, HYPOMAGNESEMIA, FRACTURE OF RIGHT TIBIA DIET: Regular ACTIVITY: as tolerated, do not put weight on leg that is splinted due to fracture until orthopedics instructs you to do so. Medications: metoprolol tartrate - refills sent in, potassium 10 mEq daily x 1 week Follow-up with PCP this week [facility] WILL BE IN CONTACT WITH YOU TO ESTABLISH CARE. IF YOU DO NOT HEAR FROM THEM, PLEASE CONTACT THEM AT [phone]. Review With Patient Reviewed with Patient and Family: Patient and family have been counseled on condition and care plan and have no immediate questions. I have personally discussed and reviewed the patient's visit/current labs/imaging/decision making with Dr. Yoana Barrera, my supervising attending. Total number of minutes spent with patient 85 min. More than 50% of the time spent with this patient was devoted to counseling and coordination of care. Time of Admission:03/04/24 20:40 Time of Discharge: 03/05/24 13:30 Discharge Plan Discharge Discharge Orders: Discharge Patient (ONCE); Ordered 03/05/24 Ordered By: DANA ROWE Activity Restrictions/Additional Instructions: DIAGNOSIS: HYPOKALEMIA, HYPOMAGNESEMIA, FRACTURE OF RIGHT TIBIA DIET: Regular ACTIVITY: as tolerated, do not put weight on leg that is splinted due to fracture until orthopedics instructs you to do so. Medications: metoprolol tartrate - refills sent in, potassium 10 mEq daily x 1 week Follow-up with PCP this week [facility] WILL BE IN CONTACT WITH YOU TO ESTABLISH CARE. IF YOU DO NOT HEAR FROM THEM, PLEASE CONTACT THEM AT [phone]. Instructions: Potassium Content of Foods List (GEN), Hypokalemia (GEN), Abuse of Alcohol (GEN), Hypomagnesemia (GEN) Patient Disposition: HOME WITH FAMILY CARE Prescriptions: New metoprolol tartrate 50 mg Tablet 50 mg PO BID Qty: 60 0RF potassium chloride 10 mEq tablet extended release 10 meq PO DAILY Qty: 7 0RF Discontinued folic acid 1 mg Tablet 1 mg PO DAILY Qty: 1 0RF gabapentin 300 mg Capsule 300 mg PO 2100 Qty: 1 0RF lorazepam 1 mg Tablet 1 mg PO BID Qty: 1 0RF risperidone 1 mg Tablet 1 mg PO Q12HR Qty: 1 0RF thiamine HCl (vitamin B1) [Vitamin B-1] 100 mg Tablet 100 mg PO DAILY Qty: 1 0RF Eliquis 5 mg tablet See Rx Instructions .ROUTE .COMPLEX Qty: 1 0RF Rx Instructions: Take 10 mg bid x10 days then 5 mg bid No Action metoprolol tartrate 25 mg Tablet 50 mg PO Q6HR Qty: 1 0RF Did you review [place] DIRECTOR OF TRANSPORTATION for ALL controlled substances?: No Discussed opioids are addictive and Narcan is available by prescription or from pharmacy.: No Condition: Stable
[2024-03-05 14:59] VITALS: BP 117/75; PULSE 90; RESP 14
== END 2024-03-05 15:29 | disposition home or self-care (01) ==
LOC: ED 09:29 → MEDSURG B 20:40 → INTOOBSV 20:40 → SCU 21:30
PROVIDERS: ADMIT Hospitalist; ATTEND Nurse Practitioner Family
DX: W19.XXXA Unspecified fall, initial encounter; R74.01 Elevation of levels of liver transaminase levels; S82.391A Other fracture of lower end of right tibia, initial encounter for closed fracture; F17.210 Nicotine dependence, cigarettes, uncomplicated; M25.571 Pain in right ankle and joints of right foot; Z79.01 Long term (current) use of anticoagulants; E87.6 Hypokalemia; M85.871 Other specified disorders of bone density and structure, right ankle and foot; R29.6 Repeated falls; E83.42 Hypomagnesemia; Z20.822 Contact with and (suspected) exposure to COVID-19; F10.10 Alcohol abuse, uncomplicated; M62.81 Muscle weakness (generalized); Z79.899 Other long term (current) drug therapy; I48.91 Unspecified atrial fibrillation; R63.4 Abnormal weight loss; Z51.81 Encounter for therapeutic drug level monitoring; M62.50 Muscle wasting and atrophy, not elsewhere classified, unspecified site